=== PATIENT | male | born 1935 | race Caucasian/White ===

== ENCOUNTER → 2016-10-15 | Outpatient (CLI) | payer OTHER ==
[~2016-10-15] MED LIST: ACET1TAB84 PO; AMOX500C3 PO; ASPCH81X PO; CALC-393 PO; CALCTAB5 PO; CLC/300 PO; LSN/10125 PO; MULTTAB PO; NAPR1TAB9 PO; OXYC-57 PO; OXYSR10 PO; POLYSOL OPB
[2016-10-15 12:42] LABS: BASO % 0.3 %; BASO ABS # 0.02 K/uL (0-0.2); COMPLETE YES; HEMATOCRIT 41.3 % (42-52); IG% 0.2 %; LYMPH % 24.7 %; LYMPH ABS # 1.49 K/uL (1.2-3.4); MEAN CELL VOLUME 90.4 fL (80-100); MEAN CORPUSCULAR HEMOGLOBIN 31.1 pg (25-34); MEAN CORPUSCULAR HGB CONC 34.4 g/dl (32-36); MEAN PLATELET VOLUME 9.3 fL (7.4-10.4); MONO % 10.4 %; NEUT % 63.4 %; PLATELET COUNT 257 K/uL (130-400); RED BLOOD COUNT 4.57 M/uL (4.7-6.1); WHITE BLOOD COUNT 6.03 K/uL (4.8-10.8)
[2016-10-15 13:30] LABS: ALT/SGPT 23 U/L (12-78); BLOOD UREA NITROGEN 23 mg/dl (7-18); BUN/CREATININE RATIO 26.9 (10-20); CARBON DIOXIDE 28 mmol/L (21-32); CHLORIDE 104 mmol/L (98-107); CREATININE 0.84 mg/dl (0.60-1.40); GLUCOSE 94 mg/dl (70-99); POTASSIUM 4.3 mmol/L (3.5-5.1); SODIUM 139 mmol/L (136-145)
[2016-10-15 13:35] LABS: ALB/GLOB RATIO 1.1 (0.9-2); ALKALINE PHOSPHATASE 85 U/L (45-117); AST/SGOT 27 U/L (15-37)
[2016-10-15 14:27] LABS: LYME DISEASE AB IGG NEG (NEG); LYME DISEASE AB IGM NEG (NEG)
== END | disposition home or self-care (01) ==
LOC: C.LABPVFM 09:01
PROVIDERS: ATTEND Family Medicine
DX: I10 Essential (primary) hypertension (principal); Z13.6 Encounter for screening for cardiovascular disorders; N40.1 Benign prostatic hyperplasia with lower urinary tract symptoms; T14.8 Other injury of unspecified body region; W57.XXXA Bitten or stung by nonvenomous insect and other nonvenomous arthropods, initial encounter

== ENCOUNTER 2017-01-11 17:29 | Emergency (ER) | payer OTHER ==
[~2017-01-11] VITALS: Ht 175.3 cm; Wt 86.0 kg
[~2017-01-11 17:29] MED LIST changes: -ACET1TAB84 PO; -CALC-393 PO; -CLC/300 PO; -NAPR1TAB9 PO
[2017-01-11 17:32] VITALS: Ht 175.3 cm; Wt 86.0 kg
[2017-01-11] MEDS ORDERED: SODIUM CHLORIDE 0.9% 1000ML 1,000 ML IV STA (17:35)
[2017-01-11] MEDS ORDERED: CALC-393 PO (17:55)
[2017-01-11] MEDS ORDERED: NAPR1TAB9 PO (17:55)
[2017-01-11] MEDS ORDERED: CLC/300 PO (17:55)
--- NOTE | 2017-01-11 18:15 | DIAGNOSTIC IMAGING REPORT ---
CT SCAN OF THE ABDOMEN AND PELVIS WITHOUT IV CONTRAST CLINICAL HISTORY: Bilateral flank pain. COMPARISON STUDY: Ultrasound of the aorta dated 05/03/2016. TECHNIQUE: CT scan of the abdomen and pelvis is performed from the lung bases to the proximal femora. Images are reviewed in the axial, sagittal, and coronal planes. IV contrast was not administered for this examination as per the referring clinician. Note that the examination was performed in suboptimal fashion without IV contrast. Automated dose control exposure was utilized. CT DOSE: 1148.89 mGy.cm FINDINGS: Lung bases: The heart is normal in size and without pericardial effusion. Calcified pleural plaque is noted at the right lung base. No airspace consolidation or pleural effusion is seen. A 3 mm pleural-based nodule at the right lung base as seen on image #64. Liver: The unenhanced liver is normal in size, contour, and attenuation. There is no intrahepatic biliary ductal dilatation. Gallbladder: There are numerous calcified gallstones. There is no CT evidence of acute cholecystitis. Spleen: Normal in size and attenuation. Pancreas: The unenhanced pancreas is atrophic and grossly unremarkable. Adrenal glands: Unremarkable. Kidneys: The unenhanced kidneys demonstrate cortical atrophy and are without hydronephrosis. There are no renal calculi identified. There is no evidence of contour deforming renal mass lesion. Abdominal vasculature: The abdominal aorta is normal in course and caliber noting moderate atherosclerotic calcification. Bowel: The small bowel and colon are normal in course and caliber. There is advanced colonic diverticulosis without CT evidence of acute diverticulitis. The appendix is well-visualized and normal. Peritoneum: There is no intraperitoneal free air or abdominal ascites. Lymphadenopathy: None. Pelvic viscera: Streak artifact from a left hip arthroplasty degrades assessment of the pelvis. There is median lobe hypertrophy of the prostate gland. The bladder wall appears mildly thickened and trabeculated suggesting chronic outlet obstruction. Skeletal structures: The skeletal structures are osteopenic. Moderate lumbosacral spondylosis is observed. There are postoperative changes from L5 -S1 spinal fusion. A left hip arthroplasty is in place. No lytic or blastic lesions are seen. IMPRESSION: 1. There are no acute infectious or inflammatory findings in the abdomen or pelvis. 2. Advanced colonic diverticulosis without CT evidence of acute diverticulitis. 3. Calcified pleural plaque is noted at the right lung base. 4. Cholelithiasis without CT evidence of acute cholecystitis. 5. Additional findings as above. Electronically signed by: Higinio Berg M.D. 01/11/2017 6:14 PM Dictated Date/Time: 01/11/2017 6:08 PM
[2017-01-11 19:06] LABS: BASO % 0.3 %; BASO ABS # 0.01 K/uL (0-0.2); COMPLETE YES; HEMATOCRIT 41.8 % (42-52); IG% 0.3 %; LYMPH % 10.6 %; LYMPH ABS # 0.41 K/uL (1.2-3.4); MEAN CELL VOLUME 90.9 fL (80-100); MEAN CORPUSCULAR HEMOGLOBIN 31.3 pg (25-34); MEAN CORPUSCULAR HGB CONC 34.4 g/dl (32-36); MEAN PLATELET VOLUME 9.3 fL (7.4-10.4); NEUT % 81.8 %; PLATELET COUNT 102 K/uL (130-400); WHITE BLOOD COUNT 3.85 K/uL (4.8-10.8)
[2017-01-11 19:25] LABS: BUN/CREATININE RATIO 17.7 (10-20); POTASSIUM 3.7 mmol/L (3.5-5.1)
[2017-01-11] MEDS ORDERED: ACETAMINOPHEN 500 MG TAB PO STA (19:27)
[2017-01-11 19:36] LABS: THYROID STIMULATING HORMONE 1.38 uIu/ml (0.300-4.500)
[2017-01-11 19:59] LABS: LYME DISEASE AB IGG NEG (NEG)
[2017-01-11 20:00] LABS: LYME DISEASE AB IGM NEG (NEG)
[2017-01-11 20:03] LABS: URINE APPEARANCE CLOUDY (CLEAR); URINE BILIRUBIN NEG (NEG); URINE COLOR DK YELLOW; URINE NITRITE NEG (NEG); URINE SPECIFIC GRAVITY 1.031 (1.000-1.030); UROBILINOGEN NEG (NEG); ZZUR CULT IF INDIC CLEAN CATCH NO
[2017-01-11 20:07] LABS: MANUAL MICROSCOPIC REQUIRED? NO; REVIEW REQ? NO
[2017-01-11 21:54] VITALS: BP 116/72; PULSE 61; O2SAT 95
[2017-01-11 21:55] VITALS: TEMP 37
--- NOTE | 2017-01-12 02:44 | EMERGENCY ROOM VISIT NOTE ---
History Report prepared by Christiano: Idania Corbin Under the Supervision of: Dr. Alli Greene M.D. First contact with patient: 17:35 Chief Complaint: ILLNESS Stated Complaint: KIDNEYS HURT,ABD PAIN,HEADACHE History of Present Illness The patient is a 81 year old male who presents to the Emergency Room with complaints of a persistent illness that began one day ago. He currently rates his discomfort as a 6/10 in severity. The patient states that one day ago he developed bilateral kidney pain, but denies any urinary problems. He denies any history of kidney problems or kidney stones. The patient states that he had a low-grade fever today and took two 81 mg aspirin, which helped slightly. He additionally notes general chills and aches. The patient reports that he also had a very mild headache today. He notes a chronic cough, but nothing new. He does not feel like he has any new respiratory issues at all. He is not bringing up anything with the cough. The patient reports a surgical history of a previous lumbar back surgery in 1994. He denies any midline low back pain. He denies any recent tick bite. Pt denies LOC, diaphoresis, visual changes, neck pain, chest pain, breathing difficulties, nausea, vomiting, abdominal pain, back pain, melena, hematochezia, urinary symptoms, numbness, weakness, lymphadenopathy, rash, or other complaints. Source of History: patient Onset: one day ago Position: other (global) Symptom Intensity: 6/10 Quality: other (illness) Timing: other (persistent) Associated Symptoms: + fevers, + chills, + headache, + neck pain Note: Associated Symptoms: general aches Review of Systems See HPI for pertinent positives and negatives. A total of ten systems were reviewed and were otherwise negative. Past Medical & Surgical Medical Problems: (1) Basal cell carcinoma (2) Hypertension (3) Osteoarthritis Surgical Problems: (1) H/O hand surgery (2) H/O shoulder surgery (3) History of cataract surgery (4) History of total right knee replacement (5) Previous back surgery (6) Status post left hip replacement Family History No pertinent family history stated. Social History Smoking Status: Former Smoker Marital Status: Housing Status: lives with significant other Occupation Status: retired Current/Historical Medications Scheduled Aspirin (Aspirin Chewable), 81 MG PO DAILY Calcium Carbonate (Calcium), 1 TAB PO BID Clindamycin HCl (Clindamycin HCl), 2 CAP PO DAILY Hctz/Lisinopril (Lisinopril/Hctz 10/12.5 Mg), 0.5 TAB PO QAM Multivitamins/Minerals (Mvi With Minerals), 1 TAB PO QAM Naproxen (Aleve), 220 MG PO QAM Polyvinyl Alcohol-Povidone (Op (Refresh), 1 DROP OPB PRN Allergies Coded Allergies: Adhesives (Verified Allergy, Mild, SKIN REDNESS, 01/11/17) Physical Exam Vital Signs Date Time Temp Pulse Resp B/P (MAP) Pulse Ox O2 Delivery O2 Flow Rate FiO2 01/11/17 21:55 37.0 01/11/17 21:54 61 16 116/72 95 Room Air 01/11/17 21:23 37.7 01/11/17 20:22 79 20 130/75 95 Room Air 01/11/17 19:19 38.0 72 18 120/62 94 Room Air 01/11/17 17:32 36.6 72 16 127/73 95 Room Air Physical Exam GENERAL: Awake, alert, very tired-appearing, in no distress HENT: Normocephalic, atraumatic. Oropharynx unremarkable. EYES: Normal conjunctiva. Sclera non-icteric. NECK: Supple. No nuchal rigidity. FROM. No JVD. RESPIRATORY: Clear to auscultation. CARDIAC: Regular rate, normal rhythm. Extremities warm and well perfused. Pulses equal. ABDOMEN: Soft, non-distended. No tenderness to palpation. No rebound or guarding. No masses. RECTAL: Deferred. MUSCULOSKELETAL: Chest examination reveals no tenderness. The back is symmetrical on inspection without obvious abnormality. There is no CVA tenderness to palpation. No joint edema. LOWER EXTREMITIES: Calves are equal size bilaterally and non-tender. No edema. No discoloration. NEURO: Normal sensorium. No sensory or motor deficits noted. SKIN: No rash or jaundice noted. Medical Decision & Procedures ER Provider Diagnostic Interpretation: CT: Radiology results as stated below per my review and radiologist interpretation CT SCAN OF THE ABDOMEN AND PELVIS WITHOUT IV CONTRAST CLINICAL HISTORY: Bilateral flank pain. COMPARISON STUDY: Ultrasound of the aorta dated 05/03/2016. TECHNIQUE: CT scan of the abdomen and pelvis is performed from the lung bases to the proximal femora. Images are reviewed in the axial, sagittal, and coronal planes. IV contrast was not administered for this examination as per the referring clinician. Note that the examination was performed in suboptimal fashion without IV contrast. Automated dose control exposure was utilized. CT DOSE: 1148.89 mGy.cm FINDINGS: Lung bases: The heart is normal in size and without pericardial effusion. Calcified pleural plaque is noted at the right lung base. No airspace consolidation or pleural effusion is seen. A 3 mm pleural-based nodule at the right lung base as seen on image #64. Liver: The unenhanced liver is normal in size, contour, and attenuation. There is no intrahepatic biliary ductal dilatation. Gallbladder: There are numerous calcified gallstones. There is no CT evidence of acute cholecystitis. Spleen: Normal in size and attenuation. Pancreas: The unenhanced pancreas is atrophic and grossly unremarkable. Adrenal glands: Unremarkable. Kidneys: The unenhanced kidneys demonstrate cortical atrophy and are without hydronephrosis. There are no renal calculi identified. There is no evidence of contour deforming renal mass lesion. Abdominal vasculature: The abdominal aorta is normal in course and caliber noting moderate atherosclerotic calcification. Bowel: The small bowel and colon are normal in course and caliber. There is advanced colonic diverticulosis without CT evidence of acute diverticulitis. The appendix is well-visualized and normal. Peritoneum: There is no intraperitoneal free air or abdominal ascites. Lymphadenopathy: None. Pelvic viscera: Streak artifact from a left hip arthroplasty degrades assessment of the pelvis. There is median lobe hypertrophy of the prostate gland. The bladder wall appears mildly thickened and trabeculated suggesting chronic outlet obstruction. Skeletal structures: The skeletal structures are osteopenic. Moderate lumbosacral spondylosis is observed. There are postoperative changes from L5 -S1 spinal fusion. A left hip arthroplasty is in place. No lytic or blastic lesions are seen. IMPRESSION: 1. There are no acute infectious or inflammatory findings in the abdomen or pelvis. 2. Advanced colonic diverticulosis without CT evidence of acute diverticulitis. 3. Calcified pleural plaque is noted at the right lung base. 4. Cholelithiasis without CT evidence of acute cholecystitis. 5. Additional findings as above. Electronically signed by: Higinio Berg M.D. 01/11/2017 6:14 PM Dictated Date/Time: 01/11/2017 6:08 PM Laboratory Results 01/11/17 18:35 Red Blood Count 4.60, Mean Corpuscular Volume 90.9, Mean Corpuscular Hemoglobin 31.3, Mean Corpuscular Hemoglobin Concent 34.4, Mean Platelet Volume 9.3, Neutrophils (%) (Auto) 81.8, Lymphocytes (%) (Auto) 10.6, Monocytes (%) (Auto) 7.0, Eosinophils (%) (Auto) 0.0, Basophils (%) (Auto) 0.3, Neutrophils # (Auto) 3.15, Lymphocytes # (Auto) 0.41, Monocytes # (Auto) 0.27, Eosinophils # (Auto) 0.00, Basophils # (Auto) 0.01 01/11/17 18:35 Test 01/11/17 18:35 01/11/17 18:37 01/11/17 19:27 White Blood Count 3.85 K/uL (4.8-10.8) Red Blood Count 4.60 M/uL (4.7-6.1) Hemoglobin 14.4 g/dL (14.0-18.0) Hematocrit 41.8 % (42-52) Mean Corpuscular Volume 90.9 fL (80-100) Mean Corpuscular Hemoglobin 31.3 pg (25-34) Mean Corpuscular Hemoglobin Concent 34.4 g/dl (32-36) Platelet Count 102 K/uL (130-400) Mean Platelet Volume 9.3 fL (7.4-10.4) Neutrophils (%) (Auto) 81.8 % Lymphocytes (%) (Auto) 10.6 % Monocytes (%) (Auto) 7.0 % Eosinophils (%) (Auto) 0.0 % Basophils (%) (Auto) 0.3 % Neutrophils # (Auto) 3.15 K/uL (1.4-6.5) Lymphocytes # (Auto) 0.41 K/uL (1.2-3.4) Monocytes # (Auto) 0.27 K/uL (0.11-0.59) Eosinophils # (Auto) 0.00 K/uL (0-0.5) Basophils # (Auto) 0.01 K/uL (0-0.2) RDW Standard Deviation 41.7 fL (36.4-46.3) RDW Coefficient of Variation 12.4 % (11.5-14.5) Immature Granulocyte % (Auto) 0.3 % Immature Granulocyte # (Auto) 0.01 K/uL (0.00-0.02) Anion Gap 7.0 mmol/L (3-11) Est Creatinine Clear Calc Drug Dose 65.1 ml/min Estimated GFR () 82.6 Estimated GFR (Non- 71.3 BUN/Creatinine Ratio 17.7 (10-20) Calcium Level 9.0 mg/dl (8.5-10.1) Magnesium Level 2.0 mg/dl (1.8-2.4) Total Bilirubin 0.9 mg/dl (0.2-1) Direct Bilirubin 0.2 mg/dl (0-0.2) Aspartate Amino Transf (AST/SGOT) 35 U/L (15-37) Alanine Aminotransferase (ALT/SGPT) 28 U/L (12-78) Alkaline Phosphatase 85 U/L (45-117) Total Protein 7.3 gm/dl (6.4-8.2) Albumin 3.7 gm/dl (3.4-5.0) Lipase 166 U/L (73-393) Thyroid Stimulating Hormone (TSH) 1.380 uIu/ml (0.300-4.500) Lyme Disease IgG Antibody NEG (NEG) Lyme Disease IgM Antibody NEG (NEG) Bedside Lactic Acid Venous 0.77 mmol/L (0.90-1.70) Urine Color DK YELLOW Urine Appearance CLOUDY (CLEAR) Urine pH 5.0 (4.5-7.5) Urine Specific Davis 1.031 (1.000-1.030) Urine Protein 1+ (NEG) Urine Glucose (UA) NEG (NEG) Urine Ketones TRACE (NEG) Urine Occult Blood NEG (NEG) Urine Nitrite NEG (NEG) Urine Bilirubin NEG (NEG) Urine Urobilinogen NEG (NEG) Urine Leukocyte Esterase NEG (NEG) Urine WBC (Auto) 1-5 /hpf (0-5) Urine RBC (Auto) 5-10 /hpf (0-4) Urine Hyaline Casts (Auto) 1-5 /lpf (0-5) Urine Epithelial Cells (Auto) 10-20 /lpf (0-5) Urine Bacteria (Auto) NEG (NEG) Laboratory results reviewed by me Medications Administered Medications (Trade) Dose Ordered Sig/Meaghan Route Start Time Stop Time Status Last Admin Dose Admin Sodium Chloride 1,000 ml @ 125 mls/hr Q8H STAT IV 01/11/17 17:35 01/11/17 22:07 DC 01/11/17 18:49 125 MLS/HR Acetaminophen (Tylenol Tab) 1,000 mg NOW STAT PO 01/11/17 19:27 01/11/17 19:28 DC 01/11/17 20:21 1,000 MG ED Course 1734: Ordered Sodium Chloride 1000 ml @ 125 mls/hr IV. 1736: The patient was evaluated in room B11B. A complete history and physical exam was performed. 1926: The patient developed a fever. Ordered Tylenol Tab 1000 mg PO. 2129: I reevaluated the patient and he is resting. I performed a prostate exam on him and it was negative. I discussed all the exam findings with him and I discussed the treatment plan. He verbalized complete understanding and agreement. He feels comfortable going home and following up in the office tomorrow. Medical Decision Medication Reconciliation: I attest that I have personally reviewed the patient' s current medication list Blood pressure screening: Patient was found to have an elevated blood pressure and was referred to their primary doctor for recheck and further treatment. Triage Nursing notes reviewed. The patient's presentation and history were concerning for flulike symptoms. Etiologies such as viral syndrome, otitis, pharyngitis, pneumonia, urinary tract infection, sepsis, bacteremia, meningitis, lyme as well as others were entertained. The patient was evaluated. Clinically he was doing well on examination. He was hydrated. He underwent lab work, urinalysis and CT imaging. The patient's CT scan was unremarkable for acute pathology. The patient did have some gallstones noted. He never complained of any right upper quadrant abdominal pain. The patient was reevaluated and examined. He had no right upper quadrant tenderness. The blood work revealed a slight decrease in his leukocytes and platelets. His chemistry panel, LFTs, lipase, urinalysis and Lyme test was negative. The patient was reassessed. He was given Tylenol. His temperature was coming down. I did perform a prostate examination and this was normal. This is nontender. There are no clinical findings to support prostatitis. As the patient is feeling better and his diagnostic testing is unremarkable I discussed conservative management with him. Blood and urine cultures are pending and there is no clear indication for antibiotic use at this time. with his leukopenia this seems to be most likely viral although close follow-up will be necessary. The patient and his feel comfortable and they will contact the primary clinic tomorrow. If he worsens in any way she will come back to the emergency department. I gave my usual and customary discussion regarding this issue. By the evaluation outlined above other emergent etiologies such as those listed in the differential, as well as others, were deemed relatively unlikely. The patient was educated about the findings as listed above. All questions were answered and the patient was pleased with the treatment. Return instructions were outlined and the patient was discharged in stable condition. The patient was referred to his PCP for follow-up for a recheck of the current condition. Impression Primary Impression: Fever Scribe Attestation The scribe's documentation has been prepared under my direction and personally reviewed by me in its entirety. I confirm that the note above accurately reflects all work, treatment, procedures, and medical decision making performed by me. Departure Information Dispostion Home / Self-Care Referrals Mariajose John M.D. (PCP) Forms HOME CARE DOCUMENTATION FORM, IMPORTANT VISIT INFORMATION, WORK / SCHOOL INSTRUCTIONS Patient Instructions My [facility] Additional Instructions Follow-up with your primary doctor tomorrow. Tylenol: Take 1000 mg every 6 hours as needed for pain. Do not take more than 3000 mg in a 24 hour period. And/or Ibuprofen(Motrin, Advil) may be used for fever or pain. Use 600mg every six hours as needed. Take with food. Avoid using more than 2400mg in a 24 hour period. Do not use 2400mg per day for more than three consecutive days without physician direction. Prolonged inappropriate use can lead to stomach upset or ulcers. Rest and drink plenty of fluids. Return to the ER for headache, abdominal pain, vomiting, passing out, difficulty breathing, fevers, numbness, tingling, worsening of your condition, or as needed.
== END 2017-01-11 21:55 | disposition home or self-care (01) ==
LOC: C.EDB 17:31
DX: R50.9 Fever, unspecified (principal); I10 Essential (primary) hypertension; M19.90 Unspecified osteoarthritis, unspecified site; Z87.891 Personal history of nicotine dependence

== ENCOUNTER → 2017-04-09 | Outpatient (CLI) | payer OTHER ==
[~2017-04-09] MED LIST changes: -AMOX500C3 PO; +CALC-393 PO; -CALCTAB5 PO; +CLC/300 PO; +NAPR1TAB9 PO; -OXYC-57 PO; -OXYSR10 PO
[2017-04-09 13:32] LABS: ALT/SGPT 20 U/L (12-78); AST/SGOT 22 U/L (15-37); BLOOD UREA NITROGEN 19 mg/dl (7-18); BUN/CREATININE RATIO 24.3 (10-20); CALCIUM 8.5 mg/dl (8.5-10.1); CARBON DIOXIDE 29 mmol/L (21-32); CHLORIDE 106 mmol/L (98-107); CREATININE 0.77 mg/dl (0.60-1.40); GLUCOSE 89 mg/dl (70-99); POTASSIUM 3.9 mmol/L (3.5-5.1); SODIUM 141 mmol/L (136-145)
[2017-04-09 13:34] LABS: ALB/GLOB RATIO 1.1 (0.9-2); ALKALINE PHOSPHATASE 84 U/L (45-117); CHOLESTEROL 149 mg/dl (0-200); CHOLESTEROL/HDL RATIO 2.8; HDL CHOLESTEROL 53 mg/dl; LDL CHOLESTEROL CALCULATED 81 mg/dl; TRIGLYCERIDES 75 mg/dl (0-150); VERY LOW DENSITY LIPOPROT CALC 15 mg/dl
== END | disposition home or self-care (01) ==
LOC: C.LABPVFM 08:15
PROVIDERS: ATTEND Family Medicine
DX: I10 Essential (primary) hypertension (principal); Z13.220 Encounter for screening for lipoid disorders

== ENCOUNTER 2017-05-26 10:57 | Observation (INO) | payer OTHER ==
[~2017-05-26] VITALS: Ht 175.3 cm; Wt 84.8 kg
[2017-05-26] MEDS ORDERED: SODIUM CHLORIDE 0.9% 1000ML 1,000 ML IV SCH (11:24)
--- NOTE | 2017-05-26 11:33 | EMERGENCY ROOM VISIT NOTE ---
History Report prepared by Christiano: Remy Johnson Under the Supervision of: Dr. Lucho Navas D.O. First contact with patient: 11:14 Chief Complaint: STROKE SYMPTOMS Stated Complaint: CONFUSION Nursing Triage Summary: Spouse states at around 1015 this morning, spouse notes that patient became confused. She notes confused to events Prior to episode onset spouse reports that she and the patient had sexual intercourse around 1000. Reports period of time he doesnt remember. Has pressure in front of head. HTN history. Denies vision problems. Denies weakness. History of Present Illness The patient is a 81 year old male who presents to the Emergency Room with complaints of stroke-like symptoms that occurred 1 hour ago at 1015 this morning. Per the patient's , before his symptoms began they were having intercourse. After they got cleaned up and dressed, they walked into the kitchen. She noticed that the patient was staring at an advertisement on the refrigerator for an abnormally long amount of time. The patient states that he does not remember this occurring or having intercourse with his this morning. The patient's did not notice any one-sided weakness or facial droop. She called [facility] and described the episode to them, who referred them to the ER. He currently denies any headache, nausea, vomiting, or current weakness. His believes that he still seems "off" while currently describing this as mildly confused. He has a history of hypertension and took his medication this morning. Source of History: patient, spouse/significant other Onset: 1 hour ago Position: other (Global) Symptom Intensity: moderate Quality: other (Stroke-like symptoms (confusion)) Timing: constant Associated Symptoms: No headache, No nausea, No vomiting, No weakness Note: He is mildly confused. Review of Systems See HPI for pertinent positives & negatives. A total of 10 systems reviewed and were otherwise negative. Past Medical & Surgical Medical Problems: (1) Basal cell carcinoma (2) Hypertension (3) Osteoarthritis (4) TIA (transient ischemic attack) Surgical Problems: (1) H/O hand surgery (2) H/O shoulder surgery (3) History of cataract surgery (4) History of total right knee replacement (5) Previous back surgery (6) Status post left hip replacement Family History Omitted secondary to the patient's age. Social History Smoking Status: Former Smoker Marital Status: Housing Status: lives with significant other Occupation Status: retired Current/Historical Medications Scheduled Aspirin (Aspirin Chewable), 81 MG PO DAILY Calcium Carbonate (Calcium), 1 TAB PO BID Hctz/Lisinopril (Lisinopril/Hctz 10/12.5 Mg), 0.5 TAB PO QAM Multivitamins/Minerals (Mvi With Minerals), 1 TAB PO QAM Scheduled PRN Acetaminophen (Tylenol Arthritis Ext Rel), 650 MG PO Q8H PRN for Pain Allergies Coded Allergies: Adhesives (Verified Allergy, Mild, SKIN REDNESS, 01/11/17) Physical Exam Vital Signs Date Time Temp Pulse Resp B/P (MAP) Pulse Ox O2 Delivery O2 Flow Rate FiO2 05/26/17 12:47 62 172/99 96 Room Air 05/26/17 12:40 64 20 176/91 95 Room Air 05/26/17 12:16 66 20 193/89 97 Room Air 05/26/17 12:00 58 20 157/88 99 Room Air 05/26/17 11:45 61 20 167/93 98 Room Air 05/26/17 11:41 61 20 192/99 98 Room Air 05/26/17 11:22 61 20 179/89 97 Room Air 05/26/17 11:17 67 05/26/17 11:15 97 Room Air 05/26/17 10:59 36.5 64 16 183/95 97 Room Air Physical Exam GENERAL: Patient is awake, looking around the room. Patient is does not appear to be uncomfortable or in pain. EYES: The conjunctivae are clear. The pupils are round and reactive. EARS, NOSE, MOUTH AND THROAT: The nose is without any evidence of any deformity. Mucous membranes are moist tongue is midline NECK: The neck is nontender and supple. No bruits noted to auscultation. RESPIRATORY: Normal respiratory effort is noted there is no evidence of wheezing rhonchi or rales CARDIOVASCULAR: Regular rate and rhythm noted there no murmurs rubs or gallops normal S1 normal S2 GASTROINTESTINAL: The abdomen is soft. Bowel sounds are present in all quadrants. Abdomen is nontender MUSCULOSKELETAL/EXTREMITIES: There is no evidence of gross deformity full range of motion is noted in the hips and shoulders SKIN: There is no obvious evidence of any rash. There are no petechiae, pallor or cyanosis noted. NEUROLOGIC: Patient is awake alert and oriented to person, place, but not time. Strength is symmetric, no pronator drift, no facial droop noted. Medical Decision & Procedures ER Provider Diagnostic Interpretation: Radiology results as stated below per my review and radiologist interpretation: CT HEAD WITHOUT CONTRAST (CT) CLINICAL HISTORY: Stroke COMPARISON STUDY: No previous studies for comparison. TECHNIQUE: Axial CT of the brain is performed from the vertex to the skull base. IV contrast was not administered for this examination. A dose lowering technique was utilized adhering to the principles of ALARA. CT DOSE: 810.83 mGy.cm FINDINGS: No intra or extra-axial mass lesions are visualized. There is a 1 cm subtle right cerebellar hypodensity versus posterior fossa artifact. There is no evidence of midline shift. There is no acute hemorrhage. No calvarial fractures are visualized. There are patchy white matter hypodensities likely on a small vessel basis. There is no evidence of pathologic ventricular dilatation. There is no evidence of acute sinusitis IMPRESSION: 1. Subtle 1 cm right cerebellar hypodensity versus posterior fossa artifact 2. No evidence of acute hemorrhage. No evidence of mass effect. Electronically signed by: Matthieu Ríos M.D. 05/26/2017 11:38 AM Dictated Date/Time: 05/26/2017 11:35 AM MR ANGIOGRAM OF THE BRAIN CLINICAL HISTORY: Change in mental status. COMPARISON STUDY: CT of the brain dated 05/26/2017. TECHNIQUE: 3-D [id number] MR angiography of the intracranial circulation is performed. 3-D tumble views are created and assessed. IV contrast was not administered for this examination. FINDINGS: The internal carotid arteries are widely patent bilaterally, as are the anterior and middle cerebral arteries. The right A1 segment is atretic. The right anterior cerebral artery is supplied via the anterior communicating artery. The vertebrobasilar system and posterior cerebral arteries are widely patent. The right vertebral artery is dominant. There is no aneurysm, high-grade stenosis, or focal vessel cutoff seen throughout the intracranial circulation. The brain parenchyma is normal as visualized. IMPRESSION: Unremarkable MR angiogram of the brain. Electronically signed by: Higinio Berg M.D. 05/26/2017 1:17 PM Dictated Date/Time: 05/26/2017 1:14 PM CHEST ONE VIEW PORTABLE CLINICAL HISTORY: Stroke COMPARISON STUDY: March 04, 2015 FINDINGS: The heart is the upper limits of normal in size. There is tortuosity/ectasia of the thoracic aorta. There is no failure. There is no focal pulmonary consolidation. There are no pleural effusions. There is a right-sided pleural diaphragmatic calcification.[ IMPRESSION: No active disease in the chest. Electronically signed by: Matthieu Ríos M.D. 05/26/2017 1:48 PM Dictated Date/Time: 05/26/2017 1:47 PM BRAIN WITHOUT CONTRAST HISTORY: 81 years-old Male acute CVA acute strokelike symptoms with acute confusion COMPARISON: CT head and MRA head of same day TECHNIQUE: Multiplanar multisequence MRI of the brain was obtained without contrast. FINDINGS: There is no restricted diffusion to suggest acute ischemia. Ill-defined area of reported low-attenuation of the right cerebellum likely correlates with normal brain parenchyma. Midline structures including the corpus callosum, brainstem, optic chiasm, pituitary and pineal glands are unremarkable on the sagittal T1 sequence. There is no cerebellar tonsillar herniation, however the cervical tonsils are low-lying extending 3 mm caudal to the foramen magnum. Degenerative changes of the imaged cervical spine are noted. There is mild to moderate atrophy with ex vacuo ventriculomegaly. A few scattered punctate foci of T2/FLAIR prolongation are noted within the subcortical and periventricular white matter of the cerebral hemispheres bilaterally suggesting mild chronic microvascular ischemic changes. No acute intracranial hemorrhage, midline shift, hydrocephalus, abnormal extra-axial collections or intracranial mass. The major flow voids at the level of the skull base are patent. Orbits are symmetric. There is mild mucosal thickening of the ethmoid air cells. 9 mm T2 hyperintense structure of the right parietal calvarium on image 16 series 7 suggests arachnoid granulation. The calvarium and scalp soft tissues are otherwise unremarkable. IMPRESSION: 1. No acute intracranial abnormality. No acute ischemia or hemorrhage. 2. Age-related findings of atrophy with mild chronic microvascular ischemic changes. The above report was generated using voice recognition software. It may contain grammatical, syntax or spelling errors. Electronically signed by: Sly Watts M.D. 05/26/2017 1:33 PM Dictated Date/Time: 05/26/2017 1:23 PM Laboratory Results Test 05/26/17 11:10 05/26/17 11:19 05/26/17 11:23 05/26/17 11:27 Prothrombin Time 10.4 SECONDS (9.0-12.0) Prothromb Time International Ratio 1.0 (0.9-1.1) Activated Partial Thromboplast Time 29.4 SECONDS (21.0-31.0) Partial Thromboplastin Ratio 1.1 Estimated Average Glucose 105 mg/dl Hemoglobin A1c 5.3 % (4.5-5.6) Magnesium Level 2.2 mg/dl (1.8-2.4) Total Creatine Kinase 97 U/L (39-308) Creatine Kinase MB 1.8 ng/ml (0.5-3.6) Creatine Kinase MB Ratio 1.9 (0-3.0) Troponin I < 0.015 ng/ml (0-0.045) Bedside Prothrombin Time INR 1.0 (0.9-1.1) Bedside Glucose 125 mg/dl (70-99) Bedside Hemoglobin 14.3 g/dl (14.0-18.0) Bedside Hematocrit 42 % (42-52) Bedside Sodium 139 mEq/L (135-144) Bedside Potassium 4.0 mEq/L (3.3-5.0) Bedside Chloride 100 mEq/L (101-112) Bedside Total CO2 29 mEq/l (24-31) Bedside Blood Urea Nitrogen 19 mg/dl (7-18) Bedside Creatinine 0.9 mg/dl (0.6-1.3) Bedside Glucose (other) 113 mg/dl (70-99) Bedside Ionized Calcium (Ran) 1.25 mmol/l (1.12-1.32) Test 05/26/17 12:20 Urine Color YELLOW Urine Appearance CLEAR (CLEAR) Urine pH 5.5 (4.5-7.5) Urine Specific [place] 1.012 (1.000-1.030) Urine Protein NEG (NEG) Urine Glucose (UA) NEG (NEG) Urine Ketones NEG (NEG) Urine Occult Blood NEG (NEG) Urine Nitrite NEG (NEG) Urine Bilirubin NEG (NEG) Urine Urobilinogen NEG (NEG) Urine Leukocyte Esterase NEG (NEG) Laboratory results per my review. Medications Administered Medications (Trade) Dose Ordered Sig/Meaghan Route Start Time Stop Time Status Last Admin Dose Admin Sodium Chloride 1,000 ml @ 50 mls/hr Q20H IV 05/26/17 11:24 05/27/17 08:09 DC 05/26/17 14:17 50 MLS/HR ECG Indication: other (Neurologic Symptoms) Rate (beats per minute): 60 Rhythm: sinus rhythm Findings: 1st degree AV block, no ectopy, other (No acute STS abnormalities) Comparison ECG Date: 02 January 2016 Change: no significant change ED Course 1114: The patient was evaluated in room B1. A complete history and physical examination were performed. ' 1150: I spoke with Dr. Tarango of [facility] at this time. We discussed the patient's case. He will evaluate the patient. 1228: Dr. Tarango does not feel the need for T-PA. He recommends getting an MRI /MRA of his brain. 1240: Upon reevaluation, the patient is resting. I discussed results and treatment plan with him and his . They verbalizes agreement and understanding. I spoke with Dr. Cortez of the [facility]. The patient will be evaluated for further management and care. Medical Decision Differential diagnosis: Etiologies such as metabolic, infection, hypo/hyperglycemia, electrolyte abnormalities, cardiac sources, intracerebral event, toxicologic, neurologic, as well as others were entertained. Nursing notes reviewed. Additional history is obtained from the patient's significant other. The patient is a 80-year-old male who presented to the emergency department for an evaluation of possible stroke. The patient was inside the 3 hour window and was felt to be a good candidate for TPA if this was an ischemic stroke. Therefore he was made a stroke alert rather quickly. The patient did not have any significant focal neurologic deficit but had significant cognitive deficit. I discussed the patient's laboratory and radiographic studies with him and his significant other. Given his low NIH stroke score we discussed his case with the tele stroke neurologist from [facility]. After his evaluation he felt there was no indication for thrombolytics. The patient was observed in the emergency apartment. I discussed his case with the on-call [facility] hospitalist group. They've agreed to evaluate the patient in the emergency department for further management and disposition. I reevaluated the patient multiple times and discussed his findings with his significant other. Medication Reconcilliation Current Medication List: was personally reviewed by me Blood Pressure Screening Patient's blood pressure: Elevated blood pressure Will be addressed as an inpatient. Consults Time Called: 1145 Consulting Physician: Dr. Tarango - [facility] Returned Call: 1150 We discussed the patient's case. He will evaluate the patient. Additional Consults: Time Called: 1228 Consulted Physician: Dr. Emelina Franz [facility] Returned Call: 1228 Additional Comments: He does not feel the need for T-PA. He recommended an MRI and MRA of his brain. Time Called: 1235 Consulted Physician: Dr. Dana DAVILA Returned Call: 1240 Additional Comments: I discussed the patient's case with him. The patient will be evaluated for further management. Impression Primary Impression: Confusion Additional Impression: Altered mental status Scribe Attestation The scribe's documentation has been prepared under my direction and personally reviewed by me in its entirety. I confirm that the note above accurately reflects all work, treatment, procedures, and medical decision making performed by me. Departure Information Dispostion Being Evaluated By Hospitalist Prescriptions Acetaminophen (Tylenol Arthritis Ext Rel) 650 Mg Cplt 650 MG PO Q8H Y for Pain, #100 CAP Prov: Rodney Catherine D.O. 05/27/17 Referrals Mariajose John M.D. (PCP) Patient Instructions My [facility] Stroke History Time Last Known Well 1 hour ago Stroke t-PA Criteria Reviewed Does NOT meet criteria for t-PA Reason t-PA Not Given Treatment not indicated Problem Qualifiers Additional Impression: Altered mental status Altered mental status type: unspecified Qualified Codes: R41.82 - Altered mental status, unspecified
[2017-05-26 11:39] LABS: ISTAT CREATININE 0.9 mg/dl (0.6-1.3); ISTAT HEMOGLOBIN 14.3 g/dl (14.0-18.0); ISTAT IONIZED CALCIUM 1.25 mmol/l (1.12-1.32)
--- NOTE | 2017-05-26 11:39 | DIAGNOSTIC IMAGING REPORT ---
CT HEAD WITHOUT CONTRAST (CT) CLINICAL HISTORY: Stroke COMPARISON STUDY: No previous studies for comparison. TECHNIQUE: Axial CT of the brain is performed from the vertex to the skull base. IV contrast was not administered for this examination. A dose lowering technique was utilized adhering to the principles of ALARA. CT DOSE: 810.83 mGy.cm FINDINGS: No intra or extra-axial mass lesions are visualized. There is a 1 cm subtle right cerebellar hypodensity versus posterior fossa artifact. There is no evidence of midline shift. There is no acute hemorrhage. No calvarial fractures are visualized. There are patchy white matter hypodensities likely on a small vessel basis. There is no evidence of pathologic ventricular dilatation. There is no evidence of acute sinusitis IMPRESSION: 1. Subtle 1 cm right cerebellar hypodensity versus posterior fossa artifact 2. No evidence of acute hemorrhage. No evidence of mass effect. Electronically signed by: Matthieu Ríos M.D. 05/26/2017 11:38 AM Dictated Date/Time: 05/26/2017 11:35 AM
[2017-05-26] MEDS ORDERED: LABETALOL HCL IV 5 MG/ML 20ML IV ONE (11:45)
[2017-05-26 11:49] LABS: BASO % 0.4 %; BASO ABS # 0.03 K/uL (0-0.2); COMPLETE YES; EOS % 1.3 %; HEMATOCRIT 41.8 % (42-52); IG% 0.4 %; LYMPH % 27.6 %; LYMPH ABS # 2.06 K/uL (1.2-3.4); MEAN CELL VOLUME 90.7 fL (80-100); MEAN CORPUSCULAR HEMOGLOBIN 31.5 pg (25-34); MEAN CORPUSCULAR HGB CONC 34.7 g/dl (32-36); MONO % 8.2 %; NEUT % 62.1 %; PLATELET COUNT 234 K/uL (130-400); RED BLOOD COUNT 4.61 M/uL (4.7-6.1); WHITE BLOOD COUNT 7.46 K/uL (4.8-10.8)
[2017-05-26 11:54] LABS: PARTIAL THROMBOPLASTIN RATIO 1.1; PROTHROMBIN TIME (PATIENT) 10.4 SECONDS (9.0-12.0)
[2017-05-26 11:56] LABS: BLOOD UREA NITROGEN 19 mg/dl (7-18); BUN/CREATININE RATIO 19.8 (10-20); CALCIUM 9.1 mg/dl (8.5-10.1); CARBON DIOXIDE 29 mmol/L (21-32); CHLORIDE 103 mmol/L (98-107); CREATININE 0.97 mg/dl (0.60-1.40); GLUCOSE 112 mg/dl (70-99); MAGNESIUM 2.2 mg/dl (1.8-2.4); POTASSIUM 3.9 mmol/L (3.5-5.1); SODIUM 137 mmol/L (136-145)
[2017-05-26 12:03] LABS: CKMB/CK RATIO 1.9 (0-3.0)
[2017-05-26 12:36] LABS: URINE APPEARANCE CLEAR (CLEAR); URINE BILIRUBIN NEG (NEG); URINE COLOR YELLOW; URINE NITRITE NEG (NEG); URINE PH 5.5 (4.5-7.5); URINE SPECIFIC GRAVITY 1.012 (1.000-1.030); UROBILINOGEN NEG (NEG); ZZUR CULT IF INDIC CLEAN CATCH NO
[2017-05-26 12:38] LABS: MANUAL MICROSCOPIC REQUIRED? NO; REVIEW REQ? NO
[2017-05-26] MEDS ORDERED: ONDANSETRON INJ 2 MG/ML 2 ML VIAL IV PRN (13:00)
[2017-05-26] MEDS ORDERED: PHARMACIST DISCHARGE MED REC CONSULT PRN (13:00)
[2017-05-26] MEDS ORDERED: POLYETHYLENE (MIRALAX) 17 GM PACK PO PRN (13:00)
[2017-05-26] MEDS ORDERED: ACETAMINOPHEN 325 MG TAB PO PRN (13:00)
[2017-05-26] MEDS ORDERED: ALUMINUM/MAGNESIUM/SIMETH (MAALOX MAX) 30 ML UDC PO PRN (13:00)
[2017-05-26] MEDS ORDERED: HydrALAZINE HCL 20 MG/ML VIAL IV PRN (13:15)
--- NOTE | 2017-05-26 13:18 | DIAGNOSTIC IMAGING REPORT ---
MR ANGIOGRAM OF THE BRAIN CLINICAL HISTORY: Change in mental status. COMPARISON STUDY: CT of the brain dated 05/26/2017. TECHNIQUE: 3-D [id number] MR angiography of the intracranial circulation is performed. 3-D tumble views are created and assessed. IV contrast was not administered for this examination. FINDINGS: The internal carotid arteries are widely patent bilaterally, as are the anterior and middle cerebral arteries. The right A1 segment is atretic. The right anterior cerebral artery is supplied via the anterior communicating artery. The vertebrobasilar system and posterior cerebral arteries are widely patent. The right vertebral artery is dominant. There is no aneurysm, high-grade stenosis, or focal vessel cutoff seen throughout the intracranial circulation. The brain parenchyma is normal as visualized. IMPRESSION: Unremarkable MR angiogram of the brain. Electronically signed by: Higinio Berg M.D. 05/26/2017 1:17 PM Dictated Date/Time: 05/26/2017 1:14 PM
[2017-05-26 13:34] VITALS: O2SAT 96; Ht 175.3 cm; Wt 84.8 kg
--- NOTE | 2017-05-26 13:35 | DIAGNOSTIC IMAGING REPORT ---
BRAIN WITHOUT CONTRAST HISTORY: 81 years-old Male acute CVA acute strokelike symptoms with acute confusion COMPARISON: CT head and MRA head of same day TECHNIQUE: Multiplanar multisequence MRI of the brain was obtained without contrast. FINDINGS: There is no restricted diffusion to suggest acute ischemia. Ill-defined area of reported low-attenuation of the right cerebellum likely correlates with normal brain parenchyma. Midline structures including the corpus callosum, brainstem, optic chiasm, pituitary and pineal glands are unremarkable on the sagittal T1 sequence. There is no cerebellar tonsillar herniation, however the cervical tonsils are low-lying extending 3 mm caudal to the foramen magnum. Degenerative changes of the imaged cervical spine are noted. There is mild to moderate atrophy with ex vacuo ventriculomegaly. A few scattered punctate foci of T2/FLAIR prolongation are noted within the subcortical and periventricular white matter of the cerebral hemispheres bilaterally suggesting mild chronic microvascular ischemic changes. No acute intracranial hemorrhage, midline shift, hydrocephalus, abnormal extra-axial collections or intracranial mass. The major flow voids at the level of the skull base are patent. Orbits are symmetric. There is mild mucosal thickening of the ethmoid air cells. 9 mm T2 hyperintense structure of the right parietal calvarium on image 16 series 7 suggests arachnoid granulation. The calvarium and scalp soft tissues are otherwise unremarkable. IMPRESSION: 1. No acute intracranial abnormality. No acute ischemia or hemorrhage. 2. Age-related findings of atrophy with mild chronic microvascular ischemic changes. The above report was generated using voice recognition software. It may contain grammatical, syntax or spelling errors. Electronically signed by: Sly Watts M.D. 05/26/2017 1:33 PM Dictated Date/Time: 05/26/2017 1:23 PM
--- NOTE | 2017-05-26 13:49 | DIAGNOSTIC IMAGING REPORT ---
CHEST ONE VIEW PORTABLE CLINICAL HISTORY: Stroke COMPARISON STUDY: March 04, 2015 FINDINGS: The heart is the upper limits of normal in size. There is tortuosity/ectasia of the thoracic aorta. There is no failure. There is no focal pulmonary consolidation. There are no pleural effusions. There is a right-sided pleural diaphragmatic calcification.[ IMPRESSION: No active disease in the chest. Electronically signed by: Matthieu Ríos M.D. 05/26/2017 1:48 PM Dictated Date/Time: 05/26/2017 1:47 PM
[2017-05-26] MEDS ORDERED: IV FLUIDS COMPLETED PRN (14:00)
[2017-05-26 14:25] LABS: ESTIMATED AVERAGE GLUCOSE 105 mg/dl; HA1C FLAG Normal (Normal)
--- NOTE | 2017-05-26 14:27 | History and Physical ---
History & Physical Date & Time of Service: May 26, 2017 at 14:19 Chief Complaint: Confusion Primary Care Physician: Mariajose John M.D. History of Present Illness Source: patient 81-year-old male brought in at the recommendation of his primary care doctor after having some transient neurological changes. Reportedly this morning the patient had some confusion and when instructed to close his eyes tightly and discordance between his left eye and right eye where he couldn't squeeze his left eye is tight he had no garbled speech she had no arm drift. Reportedly these events occurred shortly after intercourse. The patient now has returned to about his normal state his and son are in the room is he did have a stroke alert which he was not a candidate for lytic therapy he did have imaging including CT MRI and MRA of his brain which no showed no ischemic event considerations for admission or TIA versus transient global amnesia patient is agreeable for observation Past Medical/Surgical History Medical Problems: (1) Basal cell carcinoma Status: Resolved (2) Hypertension Status: Chronic (3) Osteoarthritis Status: Chronic Surgical Problems: (1) H/O hand surgery Status: Resolved (2) H/O shoulder surgery Status: Resolved (3) History of cataract surgery Status: Resolved (4) History of total right knee replacement Status: Resolved (5) Previous back surgery Status: Resolved (6) Status post left hip replacement Status: Resolved Social History Smoking Status: Former Smoker Marital Status: Occupational Status: retired Immunizations History of Influenza Vaccine: Yes History of Tetanus Vaccine?: Yes History of Pneumococcal: Yes History of Hepatitis B Vaccine: Unknown Multi-Drug Resistant Organisms History of MDRO: No Allergies Coded Allergies: Adhesives (Verified Allergy, Mild, SKIN REDNESS, 01/11/17) Home Medications Scheduled Aspirin (Aspirin Chewable), 81 MG PO DAILY Calcium Carbonate (Calcium), 1 TAB PO BID Hctz/Lisinopril (Lisinopril/Hctz 10/12.5 Mg), 0.5 TAB PO QAM Multivitamins/Minerals (Mvi With Minerals), 1 TAB PO QAM Naproxen (Aleve), 220 MG PO QAM Review of Systems ROS: well nourished well developed No double vision blurry vision per the patient's own report No problems with speech or swallowing No palpitations, chest pain or pressure No Wheezing or breathing issues No abdominal pain nausea vomiting diarrhea changes in appetite or weight No burning urine urine frequency or changes in color No focal joint pain or muscle pain No skin rashes or oral lesions No unusual bruising or bleeding No focused back pain or numbness or loss of strength No changes in memory or confusion at this current time although his said he was confused earlier Physical Exam Vital Signs Date Time Temp Pulse Resp B/P (MAP) Pulse Ox O2 Delivery O2 Flow Rate FiO2 05/26/17 14:00 65 16 149/80 95 Room Air 05/26/17 13:34 96 Room Air 05/26/17 12:47 62 172/99 96 Room Air 05/26/17 12:40 64 20 176/91 95 Room Air 05/26/17 12:16 66 20 193/89 97 Room Air 05/26/17 12:00 58 20 157/88 99 Room Air 05/26/17 11:45 61 20 167/93 98 Room Air 05/26/17 11:41 61 20 192/99 98 Room Air 05/26/17 11:22 61 20 179/89 97 Room Air 05/26/17 11:17 67 05/26/17 11:15 97 Room Air 05/26/17 10:59 36.5 64 16 183/95 97 Room Air General Appearance: WD/WN, no apparent distress Head: normocephalic, atraumatic Eyes: PERRL, EOMI Neck: supple, no JVD Respiratory/Chest: chest non-tender, lungs clear, normal breath sounds Cardiovascular: regular rate, rhythm, no murmur Abdomen/GI: normal bowel sounds, non tender, soft Back: no CVA tenderness, normal range of motion Extremities/Musculoskelatal: no pedal edema, normal range of motion Neurologic/Psych: car changer II-XII nml as tested, no motor/sensory deficits, alert, normal mood/affect, oriented x 3 Skin: normal color, warm/dry, no rash Diagnostics Laboratory Results Results Past 24 Hours Test 05/26/17 11:10 05/26/17 11:27 05/26/17 12:20 Range/Units White Blood Count 7.46 4.8-10.8 K/uL Red Blood Count 4.61 4.7-6.1 M/uL Hemoglobin 14.5 14.0-18.0 g/dL Hematocrit 41.8 42-52 % Mean Corpuscular Volume 90.7 80-100 fL Mean Corpuscular Hemoglobin 31.5 25-34 pg Mean Corpuscular Hemoglobin Concent 34.7 32-36 g/dl Platelet Count 234 130-400 K/uL Mean Platelet Volume 9.0 7.4-10.4 fL Neutrophils (%) (Auto) 62.1 % Lymphocytes (%) (Auto) 27.6 % Monocytes (%) (Auto) 8.2 % Eosinophils (%) (Auto) 1.3 % Basophils (%) (Auto) 0.4 % Neutrophils # (Auto) 4.63 1.4-6.5 K/uL Lymphocytes # (Auto) 2.06 1.2-3.4 K/uL Monocytes # (Auto) 0.61 0.11-0.59 K/uL Eosinophils # (Auto) 0.10 0-0.5 K/uL Basophils # (Auto) 0.03 0-0.2 K/uL RDW Standard Deviation 41.9 36.4-46.3 fL RDW Coefficient of Variation 12.6 11.5-14.5 % Immature Granulocyte % (Auto) 0.4 % Immature Granulocyte # (Auto) 0.03 0.00-0.02 K/uL Prothrombin Time 10.4 9.0-12.0 SECONDS Prothromb Time International Ratio 1.0 0.9-1.1 Activated Partial Thromboplast Time 29.4 21.0-31.0 SECONDS Partial Thromboplastin Ratio 1.1 Sodium Level 137 136-145 mmol/L Potassium Level 3.9 3.5-5.1 mmol/L Chloride Level 103 98-107 mmol/L Carbon Dioxide Level 29 21-32 mmol/L Anion Gap 5.0 15.0 16-25 mmol/L Blood Urea Nitrogen 19 7-18 mg/dl Creatinine 0.97 0.60-1.40 mg/dl Est Creatinine Clear Calc Drug Dose 67.0 ml/min Estimated GFR () 85.7 Estimated GFR (Non- 73.9 BUN/Creatinine Ratio 19.8 10-20 Random Glucose 112 70-99 mg/dl Calcium Level 9.1 8.5-10.1 mg/dl Magnesium Level 2.2 1.8-2.4 mg/dl Total Creatine Kinase 97 39-308 U/L Creatine Kinase MB 1.8 0.5-3.6 ng/ml Creatine Kinase MB Ratio 1.9 0-3.0 Troponin I < 0.015 0-0.045 ng/ml Bedside Hemoglobin 14.3 14.0-18.0 g/dl Bedside Hematocrit 42 42-52 % Bedside Sodium 139 135-144 mEq/L Bedside Potassium 4.0 3.3-5.0 mEq/L Bedside Chloride 100 101-112 mEq/L Bedside Total CO2 29 24-31 mEq/l Bedside Blood Urea Nitrogen 19 7-18 mg/dl Bedside Creatinine 0.9 0.6-1.3 mg/dl Bedside Glucose (other) 113 70-99 mg/dl Bedside Ionized Calcium (Ran) 1.25 1.12-1.32 mmol/l Urine Color YELLOW Urine Appearance CLEAR CLEAR Urine pH 5.5 4.5-7.5 Urine Specific [place] 1.012 1.000-1.030 Urine Protein NEG NEG Urine Glucose (UA) NEG NEG Urine Ketones NEG NEG Urine Occult Blood NEG NEG Urine Nitrite NEG NEG Urine Bilirubin NEG NEG Urine Urobilinogen NEG NEG Urine Leukocyte Esterase NEG NEG Diagnostic Radiology CT, MRI and MRA of Brain are negative CXR normal Normal EKG Impression Assessment and Plan 81 Male with transient neurologic symptoms after exertion. Negative imaging to suggest ischemic event, in case of possible TIA, will have increase aspirin and start statin, hold traditional antihypertensives and use prn hydralazine. will have neurologic evaluation as stroke alert did discuss possible Transient Global Amnesia. lovenox for dvt prevention Advanced Directives Existing Living Will: Yes Existing Power of Ladle Builder: Yes VTE Prophylaxis VTE Risk Assessment Done? Y/N: Yes Risk Level: Moderate
[2017-05-26 14:36] VITALS: O2SAT 95
[2017-05-26 15:40] VITALS: BP 167/80; PULSE 74; TEMP 36.4; O2SAT 94
[2017-05-26 19:20] VITALS: BP 122/79; PULSE 69; TEMP 36.6; O2SAT 95
[2017-05-26] MEDS ORDERED: ENOXAPARIN 40 MG/0.4 ML SYR SC SCH (21:00)
[2017-05-27 00:08] VITALS: BP 126/76; PULSE 60; TEMP 36.5; O2SAT 95
[2017-05-27 03:54] VITALS: BP 131/68; PULSE 60; TEMP 36.6; O2SAT 95
[2017-05-27 05:54] LABS: BASO % 0.3 %; BASO ABS # 0.02 K/uL (0-0.2); COMPLETE YES; EOS % 1.9 %; HEMATOCRIT 38.4 % (42-52); IG% 0.3 %; LYMPH % 30.5 %; LYMPH ABS # 1.91 K/uL (1.2-3.4); MEAN CELL VOLUME 91.2 fL (80-100); MEAN CORPUSCULAR HEMOGLOBIN 30.9 pg (25-34); MEAN CORPUSCULAR HGB CONC 33.9 g/dl (32-36); MEAN PLATELET VOLUME 8.8 fL (7.4-10.4); MONO % 8.9 %; NEUT % 58.1 %; PLATELET COUNT 174 K/uL (130-400); RED BLOOD COUNT 4.21 M/uL (4.7-6.1); WHITE BLOOD COUNT 6.27 K/uL (4.8-10.8)
[2017-05-27 06:25] LABS: BUN/CREATININE RATIO 20.4 (10-20); CALCIUM 8.5 mg/dl (8.5-10.1); CREATININE 0.83 mg/dl (0.60-1.40)
[2017-05-27 06:28] LABS: CHOLESTEROL/HDL RATIO 2.8
[2017-05-27 07:43] VITALS: BP 143/81; PULSE 54; TEMP 36.6; O2SAT 94
[2017-05-27] MEDS ORDERED: ATORVASTATIN 40 MG TAB PO SCH (09:00)
[2017-05-27] MEDS ORDERED: ASPIRIN 325 MG ECTAB PO SCH (09:00)
--- NOTE | 2017-05-27 10:31 | Neurology Consultation ---
Neurology Consultation Date of Consultation: May 27, 2017. Attending Physician: Rodney Catherine D.O. Primary Care Physician: Mariajose John M.D. Reason for Consultation: Patient is a 81-year-old, accompanied by his at bedside, was asked to see the request of Dr. Cortez, for neurologic consultation regarding transient memory loss. History of Present Illness Source: patient, caregiver, spouse, clinic records, hospital records This patient has a history of hypertension and significant osteoarthritis. He does not have a history of stroke, diabetes, heart disease, or other vascular issues. The patient was in his usual state of health when he woke up around 7 o'clock in the morning on May 26. He recalls this in what he ate for breakfast. He also recalls the "furnace man" coming up around 8 o'clock and checking on their furnace. After this, he has no recall until the emergency room. Apparently, he was doing well and engaged in sexual intercourse with his around 1000 hours. According to her, he was acting and remembering fine. About 10-15 minutes later he was staring and not remembering things well. He seemed confused. He did not have speech problems, weakness or numbness of his limbs, facial droop, or complaints of pain or headache. He was not short of breath or diaphoretic. He arrived on May 26 at the emergency room at 1059 hours with a temperature of 36.5, pulse 64 and regular, respiratory rate 16 uncomfortable, O2 saturation 97 percent, and blood pressure 183/95. He was described as somewhat disoriented but no focal neurologic deficits. The patient himself started having some recall of events in the ER. He was evaluated with a [facility] neurologist via tele stroke who felt that this was likely transient global amnesia. CT scan of the head showed a possible 1 centimeter cerebellar hypodensity versus artifact. MRI of the brain was unremarkable with no previous stroke or cerebellar lesion. He did have some mild atrophy in general and some very mild small vessel ischemic changes and old nature. MR angiography of the brain was unremarkable. Chest x-ray was unremarkable. CBC, Chem profile, liver profile, and lipid profile were normal. I reviewed all labs and films of all the above tests and have discussed them with the patient and his . He had no further events overnight. There was no seizure activity noted by the and the patient of self has no recall from about 8 o'clock in the morning until sometime after being in the emergency room. He remembers that dietitian teaching and the events of May 25 now fairly well. By the evening of May 26 his memory was back to normal. Currently he denies pain, weakness, numbness, headaches, shortness of breath, speech problems, or mentation problems. Past Medical/Surgical History Medical Problems: (1) Altered mental status Status: Acute (2) Confusion Status: Acute Hypertension Osteoarthritis History of basal cell carcinoma removal No history of significant migraines but has had headaches in the past occasionally. Post left hand tendon surgery Left shoulder surgery 2011 Bilateral cataract surgery 2007 Right total knee replacement January 2014, with a revision replacement January 2015 Left total hip replacement Lumbar laminectomy with fusion 1994 at [facility] Family History Father age 62 of an NH. Mother in her late 70s with diabetes complications Social History Patient never smoked cigarettes. He used to smoke pipe and cigars but he quit 20+ years ago. Patient will go through a case of beer in about a year and a half. Therefore he only rarely has alcohol. 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62 Smoking Status: Former smoker Smokeless Tobacco Use: No Alcohol Use: occasionally Drug Use: none Marital Status: Housing Status: lives with significant other Occupation Status: retired Allergies Coded Allergies: Adhesives (Verified Allergy, Mild, SKIN REDNESS, 01/11/17) Current Inpatient Medications Current Inpatient Medications Medications (Trade) Dose Ordered Sig/Meaghan Route Start Time Stop Time Status Last Admin Dose Admin Atorvastatin Calcium (Lipitor Tab) 40 mg QAM PO 05/27/17 09:00 06/26/17 08:59 05/27/17 08:03 40 MG Aspirin (Ecotrin Tab) 325 mg QAM PO 05/27/17 09:00 06/26/17 08:59 05/27/17 08:03 325 MG Miscellaneous Information (Pharmacist Discharge Med Rec Consult) 1 ea UD PRN N/A 05/26/17 13:00 06/25/17 12:59 Enoxaparin Sodium (Lovenox Inj) 40 mg HS SC 05/26/17 21:00 06/25/17 20:59 05/26/17 21:26 40 MG Acetaminophen (Tylenol Tab) 650 mg Q4H PRN PO 05/26/17 13:00 06/25/17 12:59 Al Hydrox/Mg Hydrox/Simethicone (Maalox Max Susp) 15 ml Q4H PRN PO 05/26/17 13:00 06/25/17 12:59 Ondansetron HCl (Zofran Inj) 4 mg Q6H PRN IV 05/26/17 13:00 06/25/17 12:59 Polyethylene (Miralax Powder Packet) 17 gm DAILY PRN PO 05/26/17 13:00 06/25/17 12:59 Hydralazine HCl (HydrALAZINE INJ) 10 mg Q4H PRN IV 05/26/17 13:15 06/25/17 13:14 Miscellaneous (Iv Fluids Completed) 1 ea PRN PRN N/A 05/26/17 14:00 05/26/18 13:59 Review of Systems Constitutional: No fever, No weakness, No fatigue Eyes: No worsening of vision, No diplopia ENT: No hearing loss, No tinnitus, No trouble swallowing Respiratory: No cough, No shortness of breath Cardiovascular: No chest pain, No palpitations Abdomen: No pain, No nausea Musculoskeletal: No joint pain, No muscle pain Genitourinary - Male: No dysuria, No urinary incontinence Neurologic: + memory loss, No weakness, No numbness/tingling, No vertigo, No balance problems Psychiatric: No depression symptoms, No anxiety Endocrine: No fatigue Hematologic / Lymphatic: No abnormal bleeding/bruising Integumentary: No rash Allergic / Immunologic: No hives Physical Exam Vital Signs (Past 24 Hrs): Date Time Temp Pulse Resp B/P (MAP) Pulse Ox O2 Delivery O2 Flow Rate FiO2 05/27/17 07:45 Room Air 05/27/17 07:43 36.6 54 17 143/81 (101) 94 Room Air 05/27/17 04:05 Room Air 05/27/17 03:54 36.6 60 17 131/68 (89) 95 Room Air 05/27/17 00:08 36.5 60 17 126/76 (93) 95 Room Air 05/27/17 00:05 Room Air 05/27/17 00:05 Room Air 05/26/17 20:00 Room Air 05/26/17 19:20 36.6 69 16 122/79 (93) 95 Room Air 05/26/17 16:00 Room Air 05/26/17 15:40 36.4 74 16 167/80 (109) 94 Room Air 05/26/17 14:36 60 20 160/83 95 05/26/17 14:00 65 16 149/80 95 Room Air 05/26/17 13:34 96 Room Air 05/26/17 12:47 62 172/99 96 Room Air 05/26/17 12:40 64 20 176/91 95 Room Air 05/26/17 12:16 66 20 193/89 97 Room Air 05/26/17 12:00 58 20 157/88 99 Room Air 05/26/17 11:45 61 20 167/93 98 Room Air 05/26/17 11:41 61 20 192/99 98 Room Air 05/26/17 11:22 61 20 179/89 97 Room Air 05/26/17 11:17 67 05/26/17 11:15 97 Room Air 05/26/17 10:59 36.5 64 16 183/95 97 Room Air Patient is right-handed for writing and throwing, and left-handed for eating and batting. He kicks with his right foot. The patient is awake and alert. Speech is normal without aphasia or dysarthria. Mentation and thought processes are intact with orientation and normal fund of knowledge. Mood and affect are normal and appropriate. Appearance and grooming are normal. Long and short-term memory are intact, except for the time frame of about 8 o'clock in the morning May 26 through about mid afternoon. The discs are sharp with positive venous pulsations. There are no exudates, hemorrhages, or blood vessel changes seen. Pupils are 3mm bilaterally and reactive to light. Extraocular eye muscles are intact without nystagmus. Visual acuity and visual moeller seem normal grossly to confrontation. There are no deficits to sensation of the face bilaterally. Corneal reflexes are positive bilaterally. Facial strength and symmetry is normal bilaterally. Hearing seems intact grossly to voice and finger rub. Palate moves well without asymmetry. There is normal sternocleidomastoid and trapezius strength bilaterally. Tongue is midline with good strength bilaterally. Neck is with full range of motion without discomfort. There are no cervical bruits. There are no cranial or ocular bruits. Heart is without murmur. Cervical, thoracic, and lumbar spine are nontender to palpation. Gait is normal. There is good arm swing, turn, stance, and balance. With outstretched arms there is no drift. There are no resting, postural, or action tremors. There is no ataxia with [id number] testing. There is good facility in the hands. There are no abnormal involuntary movements noted. Motor strength is 5/5 diffusely in the arms bilaterally including deltoids, biceps, brachioradialis, wrist flexors and extensors, lab specialist, and intrinsic hand muscles. Motor strength is 5/5 diffusely in the legs bilaterally including hip flexors, quadriceps, hamstring, gastrocnemius, tibialis anterior, tibialis posterior, and peroneii muscles bilaterally. Toe extensors are normal and there is good bulk in the extensor digitorum brevis muscle bilaterally. The limbs have good tone without rigidity or spasticity, and there is no atrophy noted. Muscle bulk is normal, there is no tenderness, no myotonia noted to percussion, and no fasciculations seen. Sensory examination is intact to pin and touch throughout all four limbs. Reflexes are 1/4 in the biceps, triceps, brachioradialis, quadriceps, and Achilles tendons bilaterally. Toes are downgoing with plantar stimulation bilaterally. Peripheral pulses are present and of normal quality distally in all four limbs. There is no peripheral edema noted. Laboratory Results Past 24 Hours: 05/27/17 05:32 Red Blood Count 4.21, Mean Corpuscular Volume 91.2, Mean Corpuscular Hemoglobin 30.9, Mean Corpuscular Hemoglobin Concent 33.9, Mean Platelet Volume 8.8, Neutrophils (%) (Auto) 58.1, Lymphocytes (%) (Auto) 30.5, Monocytes (%) (Auto) 8.9, Eosinophils (%) (Auto) 1.9, Basophils (%) (Auto) 0.3, Neutrophils # (Auto) 3.64, Lymphocytes # (Auto) 1.91, Monocytes # (Auto) 0.56, Eosinophils # (Auto) 0.12, Basophils # (Auto) 0.02 05/27/17 05:32 Test 05/26/17 11:10 05/26/17 11:23 05/26/17 11:27 05/26/17 12:20 Prothrombin Time 10.4 SECONDS (9.0-12.0) Prothromb Time International Ratio 1.0 (0.9-1.1) Activated Partial Thromboplast Time 29.4 SECONDS (21.0-31.0) Partial Thromboplastin Ratio 1.1 Estimated Average Glucose 105 mg/dl Hemoglobin A1c 5.3 % (4.5-5.6) Magnesium Level 2.2 mg/dl (1.8-2.4) Total Creatine Kinase 97 U/L (39-308) Creatine Kinase MB 1.8 ng/ml (0.5-3.6) Creatine Kinase MB Ratio 1.9 (0-3.0) Troponin I < 0.015 ng/ml (0-0.045) Bedside Glucose 125 mg/dl (70-99) Bedside Hemoglobin 14.3 g/dl (14.0-18.0) Bedside Hematocrit 42 % (42-52) Bedside Sodium 139 mEq/L (135-144) Bedside Potassium 4.0 mEq/L (3.3-5.0) Bedside Chloride 100 mEq/L (101-112) Bedside Total CO2 29 mEq/l (24-31) Bedside Blood Urea Nitrogen 19 mg/dl (7-18) Bedside Creatinine 0.9 mg/dl (0.6-1.3) Bedside Glucose (other) 113 mg/dl (70-99) Bedside Ionized Calcium (Ran) 1.25 mmol/l (1.12-1.32) Urine Color YELLOW Urine Appearance CLEAR (CLEAR) Urine pH 5.5 (4.5-7.5) Urine Specific [place] 1.012 (1.000-1.030) Urine Protein NEG (NEG) Urine Glucose (UA) NEG (NEG) Urine Ketones NEG (NEG) Urine Occult Blood NEG (NEG) Urine Nitrite NEG (NEG) Urine Bilirubin NEG (NEG) Urine Urobilinogen NEG (NEG) Urine Leukocyte Esterase NEG (NEG) Test 05/27/17 05:32 White Blood Count 6.27 K/uL (4.8-10.8) Red Blood Count 4.21 M/uL (4.7-6.1) Hemoglobin 13.0 g/dL (14.0-18.0) Hematocrit 38.4 % (42-52) Mean Corpuscular Volume 91.2 fL (80-100) Mean Corpuscular Hemoglobin 30.9 pg (25-34) Mean Corpuscular Hemoglobin Concent 33.9 g/dl (32-36) Platelet Count 174 K/uL (130-400) Mean Platelet Volume 8.8 fL (7.4-10.4) Neutrophils (%) (Auto) 58.1 % Lymphocytes (%) (Auto) 30.5 % Monocytes (%) (Auto) 8.9 % Eosinophils (%) (Auto) 1.9 % Basophils (%) (Auto) 0.3 % Neutrophils # (Auto) 3.64 K/uL (1.4-6.5) Lymphocytes # (Auto) 1.91 K/uL (1.2-3.4) Monocytes # (Auto) 0.56 K/uL (0.11-0.59) Eosinophils # (Auto) 0.12 K/uL (0-0.5) Basophils # (Auto) 0.02 K/uL (0-0.2) RDW Standard Deviation 42.2 fL (36.4-46.3) RDW Coefficient of Variation 12.7 % (11.5-14.5) Immature Granulocyte % (Auto) 0.3 % Immature Granulocyte # (Auto) 0.02 K/uL (0.00-0.02) Anion Gap 7.0 mmol/L (3-11) Est Creatinine Clear Calc Drug Dose 72.2 ml/min Estimated GFR () 97.0 Estimated GFR (Non- 83.7 BUN/Creatinine Ratio 20.4 (10-20) Calcium Level 8.5 mg/dl (8.5-10.1) Triglycerides Level 114 mg/dl (0-150) Cholesterol Level 136 mg/dl (0-200) HDL Cholesterol 48 mg/dl LDL Cholesterol, Calculated 65 mg/dl VLDL Cholesterol, Calculated 23 mg/dl Cholesterol/HDL Ratio 2.8 Imaging BRAIN WITHOUT CONTRAST HISTORY: 81 years-old Male acute CVA acute strokelike symptoms with acute confusion COMPARISON: CT head and MRA head of same day TECHNIQUE: Multiplanar multisequence MRI of the brain was obtained without contrast. FINDINGS: There is no restricted diffusion to suggest acute ischemia. Ill-defined area of reported low-attenuation of the right cerebellum likely correlates with normal brain parenchyma. Midline structures including the corpus callosum, brainstem, optic chiasm, pituitary and pineal glands are unremarkable on the sagittal T1 sequence. There is no cerebellar tonsillar herniation, however the cervical tonsils are low-lying extending 3 mm caudal to the foramen magnum. Degenerative changes of the imaged cervical spine are noted. There is mild to moderate atrophy with ex vacuo ventriculomegaly. A few scattered punctate foci of T2/FLAIR prolongation are noted within the subcortical and periventricular white matter of the cerebral hemispheres bilaterally suggesting mild chronic microvascular ischemic changes. No acute intracranial hemorrhage, midline shift, hydrocephalus, abnormal extra-axial collections or intracranial mass. The major flow voids at the level of the skull base are patent. Orbits are symmetric. There is mild mucosal thickening of the ethmoid air cells. 9 mm T2 hyperintense structure of the right parietal calvarium on image 16 series 7 suggests arachnoid granulation. The calvarium and scalp soft tissues are otherwise unremarkable. IMPRESSION: 1. No acute intracranial abnormality. No acute ischemia or hemorrhage. 2. Age-related findings of atrophy with mild chronic microvascular ischemic changes. The above report was generated using voice recognition software. It may contain grammatical, syntax or spelling errors. Electronically signed by: Sly Watts M.D. 05/26/2017 1:33 PM MR ANGIOGRAM OF THE BRAIN CLINICAL HISTORY: Change in mental status. COMPARISON STUDY: CT of the brain dated 05/26/2017. TECHNIQUE: 3-D [id number] MR angiography of the intracranial circulation is performed. 3-D tumble views are created and assessed. IV contrast was not administered for this examination. FINDINGS: The internal carotid arteries are widely patent bilaterally, as are the anterior and middle cerebral arteries. The right A1 segment is atretic. The right anterior cerebral artery is supplied via the anterior communicating artery. The vertebrobasilar system and posterior cerebral arteries are widely patent. The right vertebral artery is dominant. There is no aneurysm, high-grade stenosis, or focal vessel cutoff seen throughout the intracranial circulation. The brain parenchyma is normal as visualized. IMPRESSION: Unremarkable MR angiogram of the brain. Electronically signed by: Higinio Berg M.D. 05/26/2017 1:17 PM Impression 1. Episode of acute memory loss May 26 now resolved This is consistent with transient global amnesia. I suspect he had vasospasm triggered by hypertension and his sexual intercourse activity. This is not consistent with a TIA otherwise. There is no evidence of stroke on MRI. The patient has no focal neurologic deficits, meningeal signs, or encephalopathy. He is back to his baseline. 2. Hypertension, not adequately controlled on admission. Currently improved. 3. Very mild old small vessel ischemic changes seen on MRI. Plan 1. Carotid ultrasound and echocardiogram if not already ordered. 2. I see no reason for any additional neurologic testing otherwise. 3. Continue 81 milligram aspirin tablet daily. 4. My drug of choice for prevented vasospasm in this setting is verapamil. Typically I would use 180 milligrams XR once daily in the morning Otherwise, I have no further neurologic recommendations. Please contact me if I can be of further assistance. I have communicated with Dr. Catherine regarding this case.
--- NOTE | 2017-05-27 10:57 | DIAGNOSTIC IMAGING REPORT ---
CAROTID DOPPLER NECK ART HISTORY: Mental status change TIA COMPARISON: None. TECHNIQUE: Real-time, grayscale, and color Doppler sonography of the carotid arteries was performed. Imaging reviewed in the transverse and longitudinal planes. All measurements were calculated based on NASCET criteria. FINDINGS: Antegrade flow is seen in the bilateral vertebral arteries. The brachial pressures are hemodynamically similar. Mild plaque formation bilaterally The peak systolic velocity within the right ICA is 91. The right systolic ratio is 1.3. The peak systolic velocity within the left ICA is 72. The left systolic ratio is 1.0. IMPRESSION: Mild plaque formation bilaterally. No significant stenosis. The above report was generated using voice recognition software. It may contain grammatical, syntax or spelling errors. Electronically signed by: Vinod Alaniz M.D. 05/27/2017 10:55 AM Dictated Date/Time: 05/27/2017 10:54 AM
[2017-05-27] MEDS ORDERED: ACET1TAB84 PO (14:36)
--- NOTE | 2017-05-27 14:51 | Discharge Instructions ---
Discharge Instructions Date of Service May 27, 2017. 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 Instructions / Follow-Up Instructions / Follow-Up transient global amnesia -what happened with you is a fairly "off the beaten path" neurologic symptom. more than likely, with the way it came and went, and the symptoms you showed, it 's more likely related to a spasm of blood vessels in your brain than more typical stroke syndromes involving blocked blood vessels and clots ---in the evaluation for traditional stroke risks, your heart rhythms did not show anything that would lead to clot, your EKGs looked reassuring, and therefore a heart source of clot causing the symptoms was exceedingly unlikely. as part of standard of care, we did get the echocardiogram (ultrasound of your heart) but as of now we'll be waiting on the geotechnical operating engineer to read it. because it's so unlikely to show anything of significance, we did not feel it necessary to keep you "prisoner" in the hospital waiting for it to be read. ---we also checked carotid artery ultrasound - as blockages in the carotids can throw plaque and cause brain related neurologic symptoms. yours actually looked very reassuring, with the radiologist seeing only mild plaque. for context, to be enough to be concerning, a carotid needs to show a greater than 50% blockage, and yours were clear enough that they couldn't really even put a percentage on it ---lastly, to look for signs of blocked blood vessels in the brain, we looked directly at the blood vessels with an "MR Angiogram" (MRI of the blood vessels) -- they looked normal, and we looked at risks for things that could block blood vessels too small to show up on the MRA (cholesterol, sugar) -- those both looked good - your numbers are included on this handout. ---both because of your symptoms fitting more with spasm of blood vessels, and by excluding the usual things that we see as causing more typical strokes, it appears highly likely that this was all from spasm of blood vessels in your brain ---a different family of blood pressure medications, called calcium channel blockers, tends to do a better job of protecting against blood vessel spasm. however, these medications are actually generally less protective against the more common things we worry about with high blood pressure than the medication you're on (ie a change in medication would be more protective against this particular situation, but less protective against heart attacks, strokes, and the typical things we treat high blood pressure to prevent). further, since you 're clearly very sensitive to the effects of medications for blood pressure, it' s pretty likely that we'd cause more problems than benefits by shuffling medications at this time ---one thing that we can have you do that would be protective to this situation is stopping the naproxen (alleve) -- newer studies are showing that anti- inflammatories make people less able to dilate (open) blood vessels when they need to. this is believed to be because in their cut-down of inflammatory pain chemicals, anti-inflammatories reduce the production of a chemical called prostaglandin. while prostaglandin is further metabolized into inflammatory pain chemicals, in its "raw" form, prostaglandins allow blood vessels to dilate more readily. give a trial of tylenol arthritis (acetaminophen 650mg) up to three times a day for your arthritis pains -- acetaminophen works differently than anti-inflammatories so it does not have these blood vessel effects that we see in anti-inflammatory medications. the main thing to keep in mind with acetaminophen is simply that at repeated high dosing it can be hard on your liver (this is typically defined as more than 2000mg a day in correction use, or more than 4000mg a day in short term use) "generic" [place] instructions for anyone who comes with a situation initially concerning for stroke like syndromes: Risk Factors for Stroke: You can reduce your chances of stroke by working with your medical provider to adopt a healthy lifestyle. Some specific ways to lower your chance of stroke are: * If you are a smoker, now is the time to stop smoking cigarettes * If you are diabetic, improve the control of your blood sugars * Avoid excessive amounts of alcohol * Control high blood pressure * Lose weight if you are overweight * Be sure to lead an active lifestyle * Eat a healthy diet low in salt, cholesterol and fat You should know about other risk factors for stroke that you are unable to control. These include: * Age 55 years or older * Male gender * Certain racial groups: , or / * Family History of Stroke, Mini stroke or Heart Attack * Sickle Cell Disease Follow Up: It is important for you to keep your follow up appointments with your medical provider. Current Hospital Diet Patient's current hospital diet: AHA Diet (Heart Healthy) Discharge Diet Recommended Diet: Regular Diet Pending Studies Studies pending at discharge: yes List of pending studies: echocardiogram (ultrasound of your heart) has been done, but the reading is still pending. on the very rare chance of anything urgent, we'll call you right away. assuming it looks as normal as we expect it to, Dr Daniel will be able to review it with you at your follow up appointment Laboratory Results Hemoglobin A1c Test 05/26/17 11:10 Range/Units Estimated Average Glucose 105 mg/dl Hemoglobin A1c 5.3 4.5-5.6 % Lipid Panel Test 05/27/17 05:32 Range/Units Triglycerides Level 114 0-150 mg/dl Cholesterol Level 136 0-200 mg/dl HDL Cholesterol 48 mg/dl Cholesterol/HDL Ratio 2.8 LDL Cholesterol, Calculated 65 mg/dl Medical Emergencies . Who to Call and When: Medical Emergencies: Call 911 immediately if you experience any of the following warning signs and symptoms of Stroke: * Sudden numbness or weakness of the face, arm or leg, especially on one side of the body * Sudden confusion, trouble speaking or understanding * Sudden trouble seeing in one or both eyes * Sudden trouble walking, dizziness, loss of balance or coordination * Sudden severe headache with no cause Do not delay calling 911 if you experience any warning signs or symptoms of a stroke. Delay in seeking medical attention may affect what treatments can be given to you. . Non-Emergent Contact Non-Emergency issues call your: Primary Care Provider . . "Provider Documentation" section prepared by Rodney Catherine. . Stroke Core Measures Reason no t-PA for Stroke: Treatment not indicated Reason no antithrom by day 2: Treatment provided - N/A Reason no antithrom at D/C: Treatment provided - N/A Reason no statin at D/C: Treatment not indicated Reason no anticoag w/a fib: Treatment not indicated VTE Core Measure Inpt VTE Proph given/why not?: Enoxaparin (Lovenox)SQ
[2017-05-27 15:13] VITALS: BP 143/81; PULSE 54; TEMP 36.6; O2SAT 94
[2017-05-27] MEDS ORDERED: PERFLUTREN LIPID MICROSPHERE (DEFINITY) IV ONE (15:19)
--- NOTE | 2017-05-27 16:42 | ECHOCARDIOGRAM REPORT ---
*NOTICE TO RECEIVING REPUBLICAN AGENCY This information is strictly Confidential and protected under [place] law. [place] law prohibits you from making any further disclosure of this information unless further disclosure is expressly permitted by the written consent of the person to whom it pertains or is authorized by law. A general authorization for the release of medical or other information is not sufficient for this purpose. Hospital accepts no responsibility if the information is made available to any other person, INCLUDING THE PATIENT. Interpretation Summary * Name: RUSSELL MARES Study Date: 05/27/2017 01:59 PM BP: 143/81 mmHg * Patient Location: [facility]\S\N282\S\2 HR: 54 * : 1935 (M/d/yyyy) Gender: Male Height: 69 in * Age: 81 yrs Ethnicity: [place] Weight: 186 lb * Ordering Physician: Rodney Catherine * Referring Physician: Self, Referred * Performed By: Trisha Rinaldi RDCS * * Reason For Study: TIA * BSA: 2.0 m2 * -- Conclusions -- * Left ventricular systolic function is normal. * No regional wall motion abnormalities noted. * Ejection Fraction = 65-70%. * There is mild concentric left ventricular hypertrophy. * Injection of contrast documented no interatrial shunt. Procedure Details * A complete two-dimensional transthoracic echocardiogram was performed (2D, M-mode, Doppler and color flow Doppler). * A saline contrast injection was performed to assess for cardiac shunting. * The injection was performed through an intravenous line in the left arm. * The attending nurse who injected the saline contrast was Thelma Cesar RN. * A total of 30 cc of agitated saline was given. * A contrast injection of Definity was performed to improve assessment of LV function. * Contrast was injected into an intravenous site in the left arm. * One vial of Definity ultrasound contrast was diluted in normal saline to a total volume of 10 ml. A total of '2' ml of solution was administered during imaging. * Lot # [id number] of Definity utilized for procedure. * Expiration date Jun 27. * The attending nurse who injected the contrast agent was Thelma Cesar RN. Left Ventricle * The left ventricle is normal in size. * There is mild concentric left ventricular hypertrophy. * Ejection Fraction = 65-70%. * Left ventricular systolic function is normal. * No regional wall motion abnormalities noted. Right Ventricle * The right ventricle is grossly normal size. * The right ventricular systolic function is normal as assessed by tricuspid annular plane systolic excursion (TAPSE) (normal >1.5 cm). Atria * The left atrium is mildly dilated. * Right atrial size is normal. * Injection of contrast documented no interatrial shunt. Mitral Valve * The mitral valve anatomy is normal. * There is no mitral valve stenosis. * Significant mitral regurgitation is absent. Tricuspid Valve * The tricuspid valve is not well visualized, but is grossly normal. * There is no tricuspid stenosis. * Significant tricuspid regurgitation is absent. Aortic Valve * The aortic valve is normal in structure and function. * Aortic stenosis is absent. * No aortic regurgitation is present. Pulmonic Valve * The pulmonary valve is not well seen, but the Doppler examination is normal without significant regurgitation or stenosis. Great Vessels * Mild aortic root dilatation. * The pulmonary is not well visualized. Pericardium/Pleural * There is no pericardial effusion. Great Vessels * IVC not well visualized. MMode 2D Measurements and Calculations IVSd 1.1 cm LVIDd 3.8 cm LVIDs 2.5 cm LVPWd 1.1 cm IVS/LVPW 1.0 FS 34.2 % EDV(Teich) 62.6 ml ESV(Teich) 22.6 ml EF(Teich) 63.9 % EDV(cubed) 55.5 ml ESV(cubed) 15.9 ml EF(cubed) 71.5 % LV mass(C)d 135.4 grams LV mass(C)dI 67.6 grams/m\S\2 SV(Teich) 40.0 ml SI(Teich) 20.0 ml/m\S\2 SV(cubed) 39.7 ml SI(cubed) 19.8 ml/m\S\2 Ao root diam 3.9 cm Ao root area 12.1 cm\S\2 ACS 2.1 cm LA dimension 3.0 cm asc Aorta Diam 3.7 cm LA/Ao 0.76 LVOT diam 2.0 cm LVOT area 3.2 cm\S\2 LVAd ap4 33.4 cm\S\2 LVLd ap4 8.6 cm EDV(MOD-sp4) 102.6 ml EDV(sp4-el) 110.1 ml LVAs ap4 15.2 cm\S\2 LVLs ap4 6.5 cm ESV(MOD-sp4) 28.6 ml ESV(sp4-el) 29.9 ml EF(MOD-sp4) 72.1 % EF(sp4-el) 72.9 % LVAd ap2 19.1 cm\S\2 LVLd ap2 6.3 cm EDV(MOD-sp2) 48.2 ml EDV(sp2-el) 49.0 ml LVAs ap2 9.4 cm\S\2 LVLs ap2 4.9 cm ESV(MOD-sp2) 15.1 ml ESV(sp2-el) 15.4 ml EF(MOD-sp2) 68.6 % EF(sp2-el) 68.5 % LVLd %diff -36.48 % EDV(MOD-bp) 80.6 ml LVLs %diff -33.62 % ESV(MOD-bp) 24.3 ml EF(MOD-bp) 69.8 % SV(MOD-sp4) 73.9 ml SI(MOD-sp4) 36.9 ml/m\S\2 SV(MOD-sp2) 33.0 ml SI(MOD-sp2) 16.5 ml/m\S\2 SV(MOD-bp) 56.3 ml SI(MOD-bp) 28.1 ml/m\S\2 SV(sp4-el) 80.2 ml SI(sp4-el) 40.1 ml/m\S\2 SV(sp2-el) 33.6 ml SI(sp2-el) 16.8 ml/m\S\2 Doppler Measurements and Calculations MV E max shannan 76.6 cm/sec MV A max shannan 70.6 cm/sec MV E/A 1.1 MV dec time 0.32 sec Ao V2 max 102.9 cm/sec Ao max PG 4.2 mmHg Ao max PG (full) 1.7 mmHg CARMINE(V,A) 2.5 cm\S\2 CARMINE(V,D) 2.5 cm\S\2 LV V1 max PG 2.6 mmHg LV V1 max 79.9 cm/sec PA V2 max 64.7 cm/sec PA max PG 1.7 mmHg PA acc slope 411.8 cm/sec\S\2 PA acc time 0.13 sec PI max shannan 127.7 cm/sec PI max PG 6.5 mmHg PI dec slope 97.9 cm/sec\S\2 PI P1/2t 382.0 msec TR max shannan 91.5 cm/sec PA pr(Accel) 20.7 mmHg
--- NOTE | 2017-05-27 20:10 | Discharge Summary ---
Discharge Summary Date of Service May 27, 2017. 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 FINDINGS: There is no restricted diffusion to suggest acute ischemia. Ill-defined area of reported low-attenuation of the right cerebellum likely correlates with normal brain parenchyma. Midline structures including the corpus callosum, brainstem, optic chiasm, pituitary and pineal glands are unremarkable on the sagittal T1 sequence. There is no cerebellar tonsillar herniation, however the cervical tonsils are low-lying extending 3 mm caudal to the foramen magnum. Degenerative changes of the imaged cervical spine are noted. There is mild to moderate atrophy with ex vacuo ventriculomegaly. A few scattered punctate foci of T2/FLAIR prolongation are noted within the subcortical and periventricular white matter of the cerebral hemispheres bilaterally suggesting mild chronic microvascular ischemic changes. No acute intracranial hemorrhage, midline shift, hydrocephalus, abnormal extra-axial collections or intracranial mass. The major flow voids at the level of the skull base are patent. Orbits are symmetric. There is mild mucosal thickening of the ethmoid air cells. 9 mm T2 hyperintense structure of the right parietal calvarium on image 16 series 7 suggests arachnoid granulation. The calvarium and scalp soft tissues are otherwise unremarkable. IMPRESSION: 1. No acute intracranial abnormality. No acute ischemia or hemorrhage. 2. Age-related findings of atrophy with mild chronic microvascular ischemic changes. The above report was generated using voice recognition software. It may contain grammatical, syntax or spelling errors. Electronically signed by: Sly Watts M.D. 05/26/2017 1:33 PM Dictated Date/Time: 05/26/2017 1:23 PM echo Interpretation Summary * Name: RUSSELL MARES Date: 05/27/2017 01:59 PM BP: 143/81 mmHg * Patient Location: [facility]\\82\S\2 HR: 54 * : 1935 (M/d/yyyy) Gender: Male Height: 69 in * Age: 81 yrs Ethnicity: [place] Weight: 186 lb * Ordering Physician: Rodney Catherine * Referring Physician: Self, Referred * Performed By: Trisha Rinaldi RDCS * * Reason For Study: TIA * BSA: 2.0 m2 * -- Conclusions -- * Left ventricular systolic function is normal. * No regional wall motion abnormalities noted. * Ejection Fraction = 65-70%. * There is mild concentric left ventricular hypertrophy. * Injection of contrast documented no interatrial shunt. Procedure Details * A complete two-dimensional transthoracic echocardiogram was performed (2D, M-mode, Doppler and color flow Doppler). * A saline contrast injection was performed to assess for cardiac shunting. * The injection was performed through an intravenous line in the left arm. * The attending nurse who injected the saline contrast was Thelma Cesar RN. * A total of 30 cc of agitated saline was given. * A contrast injection of Definity was performed to improve assessment of LV function. * Contrast was injected into an intravenous site in the left arm. * One vial of Definity ultrasound contrast was diluted in normal saline to a total volume of 10 ml. A total of '2' ml of solution was administered during imaging. * Lot # [id number] of Definity utilized for procedure. * Expiration date Jun 27. * The attending nurse who injected the contrast agent was Thelma Cesar RN. Left Ventricle * The left ventricle is normal in size. * There is mild concentric left ventricular hypertrophy. * Ejection Fraction = 65-70%. * Left ventricular systolic function is normal. * No regional wall motion abnormalities noted. Right Ventricle * The right ventricle is grossly normal size. * The right ventricular systolic function is normal as assessed by tricuspid annular plane systolic excursion (TAPSE) (normal >1.5 cm). Atria * The left atrium is mildly dilated. * Right atrial size is normal. * Injection of contrast documented no interatrial shunt. Mitral Valve * The mitral valve anatomy is normal. * There is no mitral valve stenosis. * Significant mitral regurgitation is absent. Tricuspid Valve * The tricuspid valve is not well visualized, but is grossly normal. * There is no tricuspid stenosis. * Significant tricuspid regurgitation is absent. Aortic Valve * The aortic valve is normal in structure and function. * Aortic stenosis is absent. * No aortic regurgitation is present. Pulmonic Valve * The pulmonary valve is not well seen, but the Doppler examination is normal without significant regurgitation or stenosis. Great Vessels * Mild aortic root dilatation. * The pulmonary is not well visualized. Pericardium/Pleural * There is no pericardial effusion. Great Vessels * IVC not well visualized. [~ rep ct add3]] MR ANGIOGRAM OF THE BRAIN CLINICAL HISTORY: Change in mental status. COMPARISON STUDY: CT of the brain dated 05/26/2017. TECHNIQUE: 3-D [id number] MR angiography of the intracranial circulation is performed. 3-D tumble views are created and assessed. IV contrast was not administered for this examination. FINDINGS: The internal carotid arteries are widely patent bilaterally, as are the anterior and middle cerebral arteries. The right A1 segment is atretic. The right anterior cerebral artery is supplied via the anterior communicating artery. The vertebrobasilar system and posterior cerebral arteries are widely patent. The right vertebral artery is dominant. There is no aneurysm, high-grade stenosis, or focal vessel cutoff seen throughout the intracranial circulation. The brain parenchyma is normal as visualized. IMPRESSION: Unremarkable MR angiogram of the brain. Electronically signed by: Higinio Berg M.D. 05/26/2017 1:17 PM Dictated Date/Time: 05/26/2017 1:14 PM CAROTID DOPPLER NECK ART HISTORY: Mental status change TIA COMPARISON: None. TECHNIQUE: Real-time, grayscale, and color Doppler sonography of the carotid arteries was performed. Imaging reviewed in the transverse and longitudinal planes. All measurements were calculated based on NASCET criteria. FINDINGS: Antegrade flow is seen in the bilateral vertebral arteries. The brachial pressures are hemodynamically similar. Mild plaque formation bilaterally The peak systolic velocity within the right ICA is 91. The right systolic ratio is 1.3. The peak systolic velocity within the left ICA is 72. The left systolic ratio is 1.0. IMPRESSION: Mild plaque formation bilaterally. No significant stenosis. The above report was generated using voice recognition software. It may contain grammatical, syntax or spelling errors. Electronically signed by: Vinod Alaniz M.D. 05/27/2017 10:55 AM CHEST ONE VIEW PORTABLE CLINICAL HISTORY: Stroke COMPARISON STUDY: March 04, 2015 FINDINGS: The heart is the upper limits of normal in size. There is tortuosity/ectasia of the thoracic aorta. There is no failure. There is no focal pulmonary consolidation. There are no pleural effusions. There is a right-sided pleural diaphragmatic calcification.[ IMPRESSION: No active disease in the chest. Electronically signed by: Matthieu Ríos M.D. 05/26/2017 1:48 PM Dictated Date/Time: 05/26/2017 1:47 PM Last Resulted CBC 05/27/17 05:32 Red Blood Count 4.21, Mean Corpuscular Volume 91.2, Mean Corpuscular Hemoglobin 30.9, Mean Corpuscular Hemoglobin Concent 33.9, Mean Platelet Volume 8.8, Neutrophils (%) (Auto) 58.1, Lymphocytes (%) (Auto) 30.5, Monocytes (%) (Auto) 8.9, Eosinophils (%) (Auto) 1.9, Basophils (%) (Auto) 0.3, Neutrophils # (Auto) 3.64, Lymphocytes # (Auto) 1.91, Monocytes # (Auto) 0.56, Eosinophils # (Auto) 0.12, Basophils # (Auto) 0.02 Last Resulted BMP 05/27/17 05:32 Hemoglobin A1c Test 05/26/17 11:10 Range/Units Estimated Average Glucose 105 mg/dl Hemoglobin A1c 5.3 4.5-5.6 % Lipid Panel Test 05/27/17 05:32 Range/Units Triglycerides Level 114 0-150 mg/dl Cholesterol Level 136 0-200 mg/dl HDL Cholesterol 48 mg/dl Cholesterol/HDL Ratio 2.8 LDL Cholesterol, Calculated 65 mg/dl Consultations: neuro Medication Reconciliation New Medications: Acetaminophen (Tylenol Arthritis Ext Rel) 650 Mg Cplt 650 MG PO Q8H PRN for Pain, #100 CAP Continued Medications: Aspirin (Aspirin Chewable) 81 Mg Chew 81 MG PO DAILY Calcium Carbonate (Calcium) 600 Mg Tab 1 TAB PO BID Hctz/Lisinopril (Lisinopril/Hctz 10/12.5 Mg) 1 Ea Tab 0.5 TAB PO QAM, TAB Multivitamins/Minerals (Mvi With Minerals) Tab 1 TAB PO QAM, TAB Discontinued Medications: Naproxen (Aleve) 220 Mg Tab 220 MG PO QAM, TAB Discharge Exam Physical Exam: General Appearance: no apparent distress Eyes: EOMI ENT: hearing grossly normal Neck: trachea midline Respiratory/Chest: no respiratory distress, no accessory muscle use Extremities: normal inspection Neurologic/Psychiatric: closing coordinator II-XII nml as tested, alert, normal mood/affect Skin: normal color, warm/dry Hospital Course transient global amnesia, concern on TIA- -seems to have been vasospastic -no evidence of cardioembolic, carotid embolic, and really limited risk for small vessel disease -likely was vasospastic -discussed change from ACEi/HCTZ to calcium channel angeline but after extensive discussions with pt he's very sensitive to BP meds, and also with this event being a one-time event and unlikely to happen again, and with ACEi and HCTZ carrying better overal morbidity/mortality benefit for BP --> we all agreed to keep meds the same for now. ongoing outpt f/u. -stop NSAID due to prostaglandin inhibition -- use tylenol arthritis instead -stable for home -outpt f/u Total Time Spent: Greater than 30 minutes This includes examination of the patient, discharge planning, medication reconciliation, and communication with other providers. Discharge Instructions Please refer to the electronic Patient Visit Report (Discharge Instructions) for additional information. Additional Copies To Mariajose John M.D.
== END 2017-05-27 16:26 | disposition home or self-care (01) ==
LOC: C.EDB 11:00 → C.MED 13:12 → ENRESERV 14:27
PROVIDERS: ADMIT Internal Medicine; ATTEND Family Medicine
DX: G45.4 Transient global amnesia (principal); I10 Essential (primary) hypertension; M19.90 Unspecified osteoarthritis, unspecified site; Z79.82 Long term (current) use of aspirin; Z79.01 Long term (current) use of anticoagulants; Z98.890 Other specified postprocedural states; Z96.642 Presence of left artificial hip joint; Z98.41 Cataract extraction status, right eye; Z98.42 Cataract extraction status, left eye; Z87.891 Personal history of nicotine dependence; Z83.3 Family history of diabetes mellitus; Z82.49 Family history of ischemic heart disease and other diseases of the circulatory system

== ENCOUNTER → 2017-08-18 | Outpatient (CLI) | payer OTHER ==
[~2017-08-18] MED LIST changes: +ACET1TAB84 PO; -CLC/300 PO; -NAPR1TAB9 PO; -POLYSOL OPB
[2017-08-18 13:09] LABS: BASO % 0.2 %; BASO ABS # 0.02 K/uL (0-0.2); EOS % 0.9 %; EOS ABS # 0.07 K/uL (0-0.5); HEMATOCRIT 41.4 % (42-52); HEMOGLOBIN 14.3 g/dL (14.0-18.0); IG# 0.03 K/uL (0.00-0.02); LYMPH % 23.2 %; LYMPH ABS # 1.91 K/uL (1.2-3.4); MEAN CELL VOLUME 91.2 fL (80-100); MEAN CORPUSCULAR HEMOGLOBIN 31.5 pg (25-34); MEAN CORPUSCULAR HGB CONC 34.5 g/dl (32-36); MEAN PLATELET VOLUME 9.2 fL (7.4-10.4); MONO % 8.3 %; MONO ABS # 0.68 K/uL (0.11-0.59); NEUT ABS # 5.51 K/uL (1.4-6.5); PLATELET COUNT 252 K/uL (130-400); RED CELL DISTRIBUTION WIDTH CV 12.6 % (11.5-14.5); RED CELL DISTRIBUTION WIDTH SD 42.4 fL (36.4-46.3); WHITE BLOOD COUNT 8.22 K/uL (4.8-10.8)
[2017-08-18 13:36] LABS: ALBUMIN 3.7 gm/dl (3.4-5.0); ALT/SGPT 22 U/L (12-78); AST/SGOT 25 U/L (15-37); BLOOD UREA NITROGEN 18 mg/dl (7-18); CALCIUM 9.5 mg/dl (8.5-10.1); CARBON DIOXIDE 29 mmol/L (21-32); CREATININE 0.99 mg/dl (0.60-1.40); GLUCOSE 105 mg/dl (70-99); SODIUM 138 mmol/L (136-145)
[2017-08-18 13:38] LABS: ALKALINE PHOSPHATASE 83 U/L (45-117); TOTAL PROTEIN 7.5 gm/dl (6.4-8.2)
== END | disposition home or self-care (01) ==
LOC: C.LABPVFM 09:12
PROVIDERS: ATTEND Family Medicine
DX: I10 Essential (primary) hypertension (principal); D64.9 Anemia, unspecified; R17 Unspecified jaundice

== ENCOUNTER → 2018-02-16 | Outpatient (CLI) | payer OTHER ==
[~2018-02-16] MED LIST changes: -ACET1TAB84 PO
[2018-02-16 13:20] LABS: ALBUMIN 3.6 gm/dl (3.4-5.0); ALKALINE PHOSPHATASE 90 U/L (45-117); ALT/SGPT 19 U/L (12-78); AST/SGOT 23 U/L (15-37); BLOOD UREA NITROGEN 13 mg/dl (7-18); CARBON DIOXIDE 28 mmol/L (21-32); GLUCOSE 93 mg/dl (70-99); POTASSIUM 4.1 mmol/L (3.5-5.1); SODIUM 138 mmol/L (136-145); TOTAL PROTEIN 7.3 gm/dl (6.4-8.2)
== END | disposition home or self-care (01) ==
LOC: C.LABPVFM 08:24
PROVIDERS: ATTEND Family Medicine
DX: R41.3 Other amnesia (principal)

== ENCOUNTER 2018-12-16 19:46 | Inpatient (IN) ==
[2018-12-16 20:21] LABS: Basophils # (auto) 0.01 K/uL (0-0.2); Basophils % (auto) 0.1 %; Eosinophils # (auto) 0.04 K/uL (0-0.5); Eosinophils % (auto) 0.4 %; Hematocrit (blood only) 38.9 % (42-52); Hemoglobin 13.3 g/dL (14.0-18.0); Immature Granulocytes # (auto) 0.02 K/uL (0.00-0.02); Immature Granulocytes % (auto) 0.2 %; Lymphocytes # (auto) 1.04 K/uL (1.2-3.4); Mean Corpuscular Hgb Conc 34.2 g/dL (32-36); Mean Corpuscular Volume 90.3 fL (80-100); Mean Platelet Volume 8.9 fL (7.4-10.4); Monocytes # (auto) 0.54 K/uL (0.11-0.59); Monocytes % (auto) 5.2 %; Neutrophils # (auto) 8.79 K/uL (1.4-6.5); Neutrophils % (auto) 84.1 %; Platelet Count 266 K/uL (130-400); RDW Coefficient of Variation 12.5 % (11.5-14.5); Red Blood Count 4.31 M/uL (4.7-6.1); White Blood Count 10.44 K/uL (4.8-10.8)
[2018-12-16] MEDS ORDERED: ONDANSETRON INJ 2 MG/ML 2 ML VIAL IV STA (20:30)
[2018-12-16] MEDS ORDERED: SODIUM CHLORIDE 0.9% 1000ML 1,000 ML IV STA (20:30)
[2018-12-16] MEDS ORDERED: SODIUM CHLORIDE 0.9% 1000ML 500 ML IV ONE (20:30)
[2018-12-16] MEDS: HYDROmorphone INJ 0.5 MG/0.5 ML SYR IV PRN ×2 (20:34→23:04)
[2018-12-16 20:39] LABS: BUN Creatinine Ratio 17.8 (10-20); Calcium 9.6 mg/dl (8.5-10.1); Creatinine Clr Calc Pharmacy 48.3 ml/min; Est GFR (African American) 68.1; Est GFR (Non-African American) 58.7; Potassium 4.1 mmol/L (3.5-5.1)
[2018-12-16 20:42] LABS: Albumin Globulin Ratio 1.1 (0.9-2); Bilirubin,Total 0.7 mg/dl (0.2-1); Globulin 3.8 gm/dl (2.5-4.0); Total Protein 7.8 gm/dl (6.4-8.2)
--- NOTE | 2018-12-16 21:01 | CT Scan Report ---
CT abd pelvis wo con CLINICAL HISTORY: 83 years-old Male presenting with vomiting, lower abdominal pain since earlier toda y, s/p right colon resection. TECHNIQUE: Multidetector CT of the abdomen and pelvis was performed without the use of intravenous co ntrast. IV contrast: None. One or more dose lowering techniques were used consistent with the princip les of ALARA (as low as reasonably achievable), including automatic exposure control, mA or kV adjust ment to individual patient size, and/or use of iterative reconstruction. COMPARISON: 10/16/2018. CT DOSE (mGy.cm): The estimated cumulative dose is 466.13 mGy.cm. 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 Lung bases: Normal heart size. Coronary artery calcification. Calcified pleural plaques. No pleural e ffusion. Minimal dependent changes likely atelectasis. Solid triangular subpleural 6 mm nodule in the right middle lobe unchanged. Liver: Normal morphology. Normal density. Biliary: No gross biliary ductal dilatation allowing for noncontrast technique. Gallbladder contains gallstones. Mild gallbladder wall thickening and pericholecystic inflammation. Pancreas: Normal noncontrast appearance. Spleen: Normal noncontrast appearance. Adrenal glands: Normal noncontrast appearance. Kidneys and ureters: Normal noncontrast appearance. No nephrolithiasis. No hydronephrosis. Normal ure ters. Bladder: Normal. Pelvic organs: Normal noncontrast appearance. Streak artifact arising from orthopedic hardware degrad es evaluation. Bowel: Limitations in evaluation of the lower rectum due to streak artifact. Diverticulosis of the mi d to upper rectum as well as the sigmoid and descending colon. No wall thickening or pericolonic infl ammatory change. Postsurgical changes of partial right hemicolectomy with a patent ileocolic anastomo sis in the right mid abdomen. No bowel obstruction. No inflammatory change or extraluminal gas at the anastomosis. Peritoneal cavity: No free fluid or intraperitoneal gas. Lymph nodes: No gross lymphadenopathy allowing for noncontrast technique. Vasculature: Atherosclerosis of the normal caliber abdominal aorta. Abdominal wall: Postsurgical changes of the lower abdominal wall may be present. Musculoskeletal: Degenerative changes of the spine. Posterior lumbar fusion hardware. Total left hip arthroplasty. IMPRESSION: 1. Cholelithiasis with gallbladder wall thickening and pericholecystic inflammatory change. Findings highly suspicious for acute calculus cholecystitis. Surgical consultation is warranted. 2. Postsurgical changes of partial right hemicolectomy. No complication or bowel obstruction. 3. Diverticulosis coli. No evidence of diverticulitis. The report will be called/faxed according to standard departmental protocol. Electronically signed by: Denny Pal M.D. 12/16/2018 8:59 PM
--- NOTE | 2018-12-16 22:56 | Ultrasound Report ---
US gallbladder CLINICAL HISTORY: 83 years-old Male presenting with abd ct for acute cholecystitis. TECHNIQUE: Real-time grayscale and limited color Doppler ultrasound imaging of the abdomen limited to the right upper quadrant was performed. COMPARISON: CT from earlier today. FINDINGS: Pancreas: Largely obscured due to overlying bowel gas. Liver: Mildly hyperechogenic parenchyma, although the right hemidiaphragm remains visible, likely ind icating mild steatosis. The liver measures 15.4 cm in maximal sagittal dimension. No sonographic evid ence of hepatic mass. Main portal vein patent with normal directional flow. Biliary: No intrahepatic biliary ductal dilatation. Common bile duct measures up to 4 mm in diameter. Gallbladder: Gallstones with gallbladder sludge, gallbladder distention, and gallbladder wall thicken ing. Right kidney: Normal in appearance without evidence of hydronephrosis. Ascites: None. Other: None. IMPRESSION: 1. Cholelithiasis with findings suspicious for acute calculus cholecystitis as on CT. Surgical consu ltation recommended. 2. Mild hepatic steatosis. Electronically signed by: Denny Pal M.D. 12/16/2018 10:54 PM
[2018-12-16] MEDS ORDERED: cefOXitin 2,000 MG/60 ML BAG IV STA (23:48)
--- NOTE | 2018-12-17 00:31 | Emergency Department Note ---
Entered by Sharita Whyte acting as a scribe for Alli Greene MD ED Provider Note CHIEF COMPLAINT: worsening upper abdominal pain HISTORY OF PRESENT ILLNESS: The patient is a 83 year old M who presents to the Emergency Room with complaints of worsening upper abdominal pain that started earlier this evening. The patient states that he was at a picnic today. He adds that he ate food at the picnic which is when his symptoms started. He rates his current pain as 9 out of 10. He notes that he is currently experiencing back pain and vomiting. No relieving factors noted. He states that he had a colon resection performed [address] Marie. He adds that the surgery was performed due to his history of colon cancer. He notes that he also has a history of hypertension. Pt denies LOC, headache, fevers, chills, diaphoresis, visual changes, neck pain, chest pain, leg pain, breathing difficulties, melena, hematochezia, urinary symptoms, numbness, weakness, lymphadenopathy, rash, or other complaints. REVIEW OF SYSTEMS: See HPI for pertinent positives and negatives. A total of ten systems were reviewed and were otherwise negative. PMHx/PSHx: colon cancer, colon resection, HTN SOCIAL HISTORY: Patient lives at home. PHYSICAL EXAM: GENERAL: Awake, alert, uncomfortable-appearing HENT: Normocephalic, atraumatic. Oropharynx unremarkable. EYES: PERRL. Normal conjunctiva. Sclera non-icteric. NECK: Inspection normal. Non-tender. Supple. No nuchal rigidity. FROM. No masses. RESPIRATORY: Clear to auscultation. No wheezes. No rales. Normal respiratory effort. CARDIAC: Bradycardic rate. Normal rhythm. No murmurs. No rubs. Extremities warm and well perfused. Pulses equal. No JVD. GI: Soft, non-distended. RUQ and epigastric tenderness to palpation. No rebound or guarding. No masses. RECTAL: Deferred. MUSCULOSKELETAL: Atraumatic. Chest examination reveals no tenderness. The back is symmetrical on inspection without obvious abnormality. There is no CVA tenderness to palpation. No joint edema. LOWER EXTREMITIES: Calves are equal size bilaterally and non-tender. No edema. No discoloration. NEURO: Normal sensorium. No sensory or motor deficits noted. SKIN: No rash or jaundice noted. EMERGENCY DEPARTMENT COURSE: 2028: Past medical records reviewed. The patient was evaluated in room C9, and a complete history and physical examination were performed. 0: I reviewed the patient's case with Dr. Hannah, [facility], [place]. 2354: I reviewed the patient's case with Dr. Charlene Oswald, [facility] Hospitalist. She will evaluate the patient for further management. MEDICAL DECISION MAKING: Triage Nursing notes reviewed and agree them. Additional history obtained from the patient's . The patient's history was concerning for abdominal pain. Differential diagnosis: Etiologies such as appendicitis, diverticulitis, PUD, biliary pathology, UTI, pancreatitis, obstruction, mesenteric ischemia, aortic pathology, infections, inflammatory bowel disease, renal colic, complication from recent surgery, as well as others were entertained. Physical examination findings: As above. ER treatment provided: IV Dilaudid times multiple doses IV Zofran IV hydration On reassessment the patient felt better. IV Mefoxin Diagnostics interpreted by me: ECG: Normal without ischemia. The labs revealed an unremarkable CBC and chemistry panel. LFTs and lipase negative. Imaging studies: CT scan performed was concerning for acute cholecystitis. No other pathology noted per radiology. Ultrasound imaging was performed and confirmed. No ductal dilatation noted. Consultation: A consultation was placed with the surgeon on-call, Dr. Hannah. He agreed with the Mefoxin and admission to the hospital. I discussed the case with Dr. Oswald of internal medicine. The patient was evaluated in the ER for further treatment. IMPRESSION: acute cholecystitis PLAN: The patient is being admitted to the hospital. The scribe's documentation has been prepared under my direction and personally reviewed by me in its entirety. I confirm that the note above accurately reflects all work, treatment, procedures, and medical decision making performed by me. Impression & Plan Acute cholecystitis Past Med/Surg History Medical History Colon cancer (Chronic) Hypertension (Chronic) Osteoarthritis (Chronic) Surgical History History of colon resection (Chronic) Social History Preferred Language: French Feels Safe at Home: Yes Smoking Status: Never smoker Results & Data Vital Signs Vital Signs - 24 hr 12/16/18 19:47 12/16/18 20:05 12/16/18 20:18 Temperature 36.5 C Temperature Source Oral Sepsis Recent Fever Within 48 Hours No Sepsis New/Unexplained Change in Mental Status No Sepsis Action Taken by Nursing No Action Required Pulse Rate 55 L 55 L Pulse Rate [Apical] Respiratory Rate 18 27 H Respiratory Depth Blood Pressure 169/73 H 179/83 H Blood Pressure [Left Arm] Blood Pressure Mean 105 115 Blood Pressure Mean [Left Arm] Pulse Oximetry 99 Oxygen Delivery Method Room Air Room Air 12/16/18 20:29 12/16/18 20:40 12/16/18 21:00 Temperature Temperature Source Sepsis Recent Fever Within 48 Hours Sepsis New/Unexplained Change in Mental Status Sepsis Action Taken by Nursing Pulse Rate 58 L 50 L Pulse Rate [Apical] 51 L Respiratory Rate 16 20 15 Respiratory Depth Normal Blood Pressure Blood Pressure [Left Arm] 179/83 H Blood Pressure Mean Blood Pressure Mean [Left Arm] 115 Pulse Oximetry 95 Oxygen Delivery Method Room Air 12/16/18 21:01 12/16/18 22:00 12/16/18 22:01 Temperature Temperature Source Sepsis Recent Fever Within 48 Hours Sepsis New/Unexplained Change in Mental Status Sepsis Action Taken by Nursing Pulse Rate 52 L 46 L 51 L Pulse Rate [Apical] Respiratory Rate 16 16 15 Respiratory Depth Blood Pressure 179/85 H 125/74 Blood Pressure [Left Arm] Blood Pressure Mean 116 91 Blood Pressure Mean [Left Arm] Pulse Oximetry Oxygen Delivery Method Home Medications Current Medication List: was personally reviewed by me Laboratory Data Attestation: I reviewed the patient's lab results. Result diagrams: 12/16/18 20:05 12/16/18 20:05 Lab Results 12/16/18 12/16/18 Range/Units 20:05 20:05 WBC 10.44 (4.8-10.8) K/uL RBC 4.31 L (4.7-6.1) M/uL Hgb 13.3 L (14.0-18.0) g/dL Hct 38.9 L (42-52) % MCV 90.3 (80-100) fL MCH 30.9 (25-34) pg MCHC 34.2 (32-36) g/dL RDW Std Deviation 41.0 (36.4-46.3) fL RDW Coeff of Juan 12.5 (11.5-14.5) % Plt Count 266 (130-400) K/uL MPV 8.9 (7.4-10.4) fL Immature Gran % (Auto) 0.2 % Neut % (Auto) 84.1 % Lymph % (Auto) 10.0 % [place] % (Auto) 5.2 % Eos % (Auto) 0.4 % Baso % (Auto) 0.1 % Immature Gran # (Auto) 0.02 (0.00-0.02) K/uL Neut # (Auto) 8.79 H (1.4-6.5) K/uL Lymph # (Auto) 1.04 L (1.2-3.4) K/uL [place] # (Auto) 0.54 (0.11-0.59) K/uL Eos # (Auto) 0.04 (0-0.5) K/uL Baso # (Auto) 0.01 (0-0.2) K/uL Sodium 140 (136-145) mmol/L Potassium 4.1 (3.5-5.1) mmol/L Chloride 104 (98-107) mmol/L Carbon Dioxide 28 (21-32) mmol/L Anion Gap 8.0 (3-11) BUN 21 H (7-18) mg/dl Creatinine 1.16 (0.6-1.4) mg/dl Est Cr Clr Drug Dosing 48.3 ml/min Est GFR ( Amer) 68.1 Est GFR (Non-Af Amer) 58.7 BUN/Creatinine Ratio 17.8 (10-20) Glucose 129 H (70-99) mg/dl Calcium 9.6 (8.5-10.1) mg/dl Total Bilirubin 0.7 (0.2-1) mg/dl AST 19 (15-37) U/L ALT 19 (12-78) U/L Alkaline Phosphatase 100 (45-117) U/L Total Protein 7.8 (6.4-8.2) gm/dl Albumin 4.0 (3.4-5.0) gm/dl Globulin 3.8 (2.5-4.0) gm/dl Albumin/Globulin Ratio 1.1 (0.9-2) Lipase 192 (73-393) U/L Administered Medications Hydromorphone HCl (Dilaudid) 0.5 mg IV Q15M PRN PRN Reason: Pain Stop: 12/30/18 20:29 Last Admin: 12/16/18 23:04 Dose: 0.5 mg Documented by: [id number] Admin: 12/16/18 20:34 Dose: 0.5 mg Documented by: [id number] Sodium Chloride (Nss 1000ml) 1,000 mls @ 125 mls/hr IV .Q8H STA Stop: 12/17/18 04:29 Last Admin: 12/16/18 20:36 Dose: 125 mls/hr Documented by: [id number] Discontinued Medications Sodium Chloride (Nss 1000ml) 500 mls @ 999 mls/hr IV .Q31M ONE Stop: 12/16/18 21:00 Last Infusion: 12/16/18 21:30 Dose: 0 mls/hr Documented by: [id number] Admin: 12/16/18 20:36 Dose: 999 mls/hr Documented by: [id number] Cefoxitin Sodium (Mefoxin) 2,000 mg in 60 mls @ 100 mls/hr IV NOW STA Stop: 12/17/18 00:23 Last Admin: 12/16/18 23:57 Dose: 100 mls/hr Documented by: [id number] Ondansetron HCl (Zofran) 4 mg IV NOW STA Stop: 12/16/18 20:31 Last Admin: 12/16/18 20:34 Dose: 4 mg Documented by: [id number] Imaging Data Radiologist's Impression: Radiology results as stated below per my review and the radiologist's interpretation: CT abd pelvis wo con CLINICAL HISTORY: 83 years-old Male presenting with vomiting, lower abdominal pain since earlier today, s/p right colon resection. TECHNIQUE: Multidetector CT of the abdomen and pelvis was performed without the use of intravenous contrast. IV contrast: None. One or more dose lowering techniques were used consistent with the principles of ALARA (as low as reasonably achievable), including automatic exposure control, mA or kV adjustment to individual patient size, and/or use of iterative reconstruction. COMPARISON: 10/16/2018. CT DOSE (mGy.cm): The estimated cumulative dose is 466.13 mGy.cm. 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 Lung bases: Normal heart size. Coronary artery calcification. Calcified pleural plaques. No pleural effusion. Minimal dependent changes likely atelectasis. Solid triangular subpleural 6 mm nodule in the right middle lobe unchanged. Liver: Normal morphology. Normal density. Biliary: No gross biliary ductal dilatation allowing for noncontrast technique. Gallbladder contains gallstones. Mild gallbladder wall thickening and pericholecystic inflammation. Pancreas: Normal noncontrast appearance. Spleen: Normal noncontrast appearance. Adrenal glands: Normal noncontrast appearance. Kidneys and ureters: Normal noncontrast appearance. No nephrolithiasis. No hydronephrosis. Normal ureters. Bladder: Normal. Pelvic organs: Normal noncontrast appearance. Streak artifact arising from orthopedic hardware degrades evaluation. Bowel: Limitations in evaluation of the lower rectum due to streak artifact. Diverticulosis of the mid to upper rectum as well as the sigmoid and descending colon. No wall thickening or pericolonic inflammatory change. Postsurgical changes of partial right hemicolectomy with a patent ileocolic anastomosis in the right mid abdomen. No bowel obstruction. No inflammatory change or extraluminal gas at the anastomosis. Peritoneal cavity: No free fluid or intraperitoneal gas. Lymph nodes: No gross lymphadenopathy allowing for noncontrast technique. Vasculature: Atherosclerosis of the normal caliber abdominal aorta. Abdominal wall: Postsurgical changes of the lower abdominal wall may be present. Musculoskeletal: Degenerative changes of the spine. Posterior lumbar fusion hardware. Total left hip arthroplasty. IMPRESSION: 1. Cholelithiasis with gallbladder wall thickening and pericholecystic inflammatory change. Findings highly suspicious for acute calculus cholecystitis. Surgical consultation is warranted. 2. Postsurgical changes of partial right hemicolectomy. No complication or bowel obstruction. 3. Diverticulosis coli. No evidence of diverticulitis. The report will be called/faxed according to standard departmental protocol. Electronically signed by: Denny Pal M.D. 12/16/2018 8:59 PM US gallbladder CLINICAL HISTORY: 83 years-old Male presenting with abd ct for acute cholecystitis. TECHNIQUE: Real-time grayscale and limited color Doppler ultrasound imaging of the abdomen limited to the right upper quadrant was performed. COMPARISON: CT from earlier today. FINDINGS: Pancreas: Largely obscured due to overlying bowel gas. Liver: Mildly hyperechogenic parenchyma, although the right hemidiaphragm remains visible, likely indicating mild steatosis. The liver measures 15.4 cm in maximal sagittal dimension. No sonographic evidence of hepatic mass. Main portal vein patent with normal directional flow. Biliary: No intrahepatic biliary ductal dilatation. Common bile duct measures up to 4 mm in diameter. Gallbladder: Gallstones with gallbladder sludge, gallbladder distention, and gallbladder wall thickening. Right kidney: Normal in appearance without evidence of hydronephrosis. Ascites: None. Other: None. IMPRESSION: 1. Cholelithiasis with findings suspicious for acute calculus cholecystitis as on CT. Surgical consultation recommended. 2. Mild hepatic steatosis. Electronically signed by: Denny Pal M.D. 12/16/2018 10:54 PM ECG Data Attestation: I personally reviewed and interpreted this ECG as follows: Indication: abdominal pain Rate (beats per minute): 51 Rhythm: sinus bradycardia Findings: + Q waves (septal); no PAC, no PVC, no ST depression and no ST elevation Blood Pressure Blood Pressure Findings: Normal blood pressure Blood Pressure Disposition: did not require urgent referral Discharge Plan Visit Data Chief Complaint: Abdominal Pain Stated Complaint: THROWING UP ED Provider: Alli Greene Discharge Problem: Acute cholecystitis Patient Disposition: Admitted As Inpatient Forms Stand Alone Forms: My [facility] Prescriptions Prescriptions: No Action clindamycin HCl [Cleocin HCl] 300 mg capsule 600 mg PO UD RF: 0 aspirin [Aspir-81] 81 mg Tablet,Delayed Release (Dr/Ec) 81 mg PO DAILY RF: 0 calcium carbonate [Calcium 600] 600 mg calcium (1,500 mg) Tablet 600 mg PO BID RF: 0 tamsulosin [Flomax] 0.4 mg capsule 0.4 mg PO DAILY RF: 0 Refresh Tears 0.5 % Drops 1 drp OPHTHALMIC (EYE) BID PRN (Reason: Dry Eyes) RF: 0 lisinopril-hydrochlorothiazide [Zestoretic] 10-12.5 mg tablet 0.5 tab PO DAILY RF: 0 Men's Multivitamin 400-20-300 mcg Tablet 1 tab PO DAILY RF: 0 Referrals Referrals: Mariajose John MD [Primary Care Provider] - The scribe's documentation has been prepared under my direction and personally reviewed by me in its entirety. I confirm that the note above accurately reflects all work, treatment, procedures, and medical decision making performed by me.
--- NOTE | 2018-12-17 01:01 | History & Physical Report ---
Date of Service December 17, 2018 Assessment & Plan (1) Acute cholecystitis: 83yo M PMH colon cancer, HTN, BPH admitted 12/17/18 for acute cholecystitis Acute cholecystitis -NPO -Morphine for pain -Surgery consulted, appreciate recs -NSS@125 -Started on cefoxitin -Monitor repeat AM labs HTN -lisinopril/HCTZ on hold for possible surgery -Hold ASA BPH -Hold home meds H/O colon cancer/colon resection -stable, monitor Code: full Dispo: med/surg DVTP: holding ASA, +SCDs (2) History of colon resection: (3) Colon cancer: (4) Hypertension: (5) BPH (benign prostatic hyperplasia): History of Present Illness Chief Complaint: Abdominal pain Primary Care Provider: Mariajose John MD Patient is a pleasant 83yo M PMH colon cancer s/p R colectomy, HTN, BPH, who presents with vague lower abdominal pain. He notes earlier in the day he was at a graduation alliance party for his granddaughter, eating pork/bbq, and while eating started having severe abdominal pain and associated vomiting. Patient had R partial pablo-colectomy performed by Dr Marie in [place] on 11/06/18 due to colon cancer and notes things had been doing well. In the ER, patient's vital signs were stable, he had normal labwork including CBC, CMP, lipase. A CT abdo was performed which revealed post-surgical findings of pablo-colectomy as well as cholelithiasis with gallbladder wall thickening/pericholecystic fluid. An accompanying GBUS was performed which confirmed cholelithiasis with findings suspicious for acute calculus cholecystitis. General surgery was consulted who recommended medical admission and will patient be assessed in the AM. He was started on cefoxitin, IVF, and has pain control prn. Allergies Allergy/AdvReac Type Severity Reaction Status Date / Time adhesive Allergy Mild SKIN Verified 01/11/17 17:50 REDNESS Home Medications Home Medications Medication Instructions Recorded Confirmed Type aspirin [Aspir-81] 81 mg PO DAILY 12/16/18 12/16/18 History calcium carbonate [Calcium 600] 600 mg PO BID 12/16/18 12/16/18 History carboxymethylcellulose sodium 1 drp OPHTHALMIC (EYE) BID PRN 12/16/18 12/16/18 History [Refresh Tears] clindamycin HCl [Cleocin HCl] 600 mg PO UD 12/16/18 12/16/18 History lisinopril-hydrochlorothiazide 0.5 tab PO DAILY 12/16/18 12/16/18 History [Zestoretic] hcbgfkmq-nep-knwek-vit K-lycop 1 tab PO DAILY 12/16/18 12/16/18 History [Men's Multivitamin] tamsulosin [Flomax] 0.4 mg PO DAILY 12/16/18 12/16/18 History Past Med/Surg History Medical History Colon cancer (Chronic) Hypertension (Chronic) Osteoarthritis (Chronic) Surgical History History of colon resection (Chronic) Social History Preferred Language: Polish Communication Ability: Effective [employer] Required: No Beliefs That Will Affect Care: None Current Living Situation: Spouse Other Information That Helps Us Care for You: No Feels Safe at Home: Yes Safety Concerns: Feels Safe At This Time Smoking Status: Former smoker Tobacco Type: pipe and cigars Do You Dip or Chew Tobacco: No Smoking End Date: 2006 Second Hand Exposure: No Hx Alcohol Use: No Hx Substance Use: No Review of Systems Review of Systems: All systems reviewed & are unremarkable except as noted in HPI & below Constitutional: + chills and + body aches; no fever Respiratory: no dyspnea and no pain on inspiration Cardiovascular: no chest pain and no radiating jaw, neck or arm pain Gastrointestinal: + abdominal pain and + nausea; no vomiting and no diarrhea/loose stools Genitourinary: + urinary hesitancy, + post-void dribbling and + nocturia Musculoskeletal: + joint pain Physical Exam Constitutional: WD/WN, vitals as above ENMT: external ear and nose normal, oropharynx normal Neck: normal visual inspection Respiratory: normal respiratory effort, lungs clear to auscultation Cardiovascular: Rate/Rhythm: regular rate and regular rhythm Extremities: + pedal edema (trace) Gastrointestinal (Abdomen): Inspection/Auscultation: + abdomen distended, normal bowel sounds and + abdominal surgical scar Percussion/Palpation: + abdomen tender (minimal lower abdominal tenderness) and abdomen soft; no guarding Musculoskeletal: no cyanosis or clubbing, extremities motor strength 5/5 Skin: no rashes, warm and dry Neurologic: PERRL, EOMI, accommodation nl, no face palsy, no dysarthria Psychiatric: A+Ox3, euthymic affect Results & Data Vital Signs (Past 12 Hours) Vital Signs Temp Pulse Pulse Resp BP BP Pulse Ox 12/17/18 00:00 60 15 169/76 H 97 12/16/18 23:22 58 L 19 154/89 H 95 12/16/18 23:21 62 18 93 12/16/18 22:02 53 L 15 12/16/18 22:01 51 L 15 125/74 12/16/18 22:00 46 L 16 12/16/18 21:01 52 L 16 179/85 H 12/16/18 21:00 50 L 15 12/16/18 20:40 51 L 20 179/83 H 95 12/16/18 20:29 58 L 16 12/16/18 20:18 55 L 27 H 179/83 H 12/16/18 19:47 36.5 C 55 L 18 169/73 H 99 Laboratory Results 12/16/18 12/16/18 Range/Units 20:05 20:05 WBC 10.44 (4.8-10.8) K/uL RBC 4.31 L (4.7-6.1) M/uL Hgb 13.3 L (14.0-18.0) g/dL Hct 38.9 L (42-52) % MCV 90.3 (80-100) fL MCH 30.9 (25-34) pg MCHC 34.2 (32-36) g/dL RDW Std Deviation 41.0 (36.4-46.3) fL RDW Coeff of Juan 12.5 (11.5-14.5) % Plt Count 266 (130-400) K/uL MPV 8.9 (7.4-10.4) fL Immature Gran % (Auto) 0.2 % Neut % (Auto) 84.1 % Lymph % (Auto) 10.0 % [place] % (Auto) 5.2 % Eos % (Auto) 0.4 % Baso % (Auto) 0.1 % Immature Gran # (Auto) 0.02 (0.00-0.02) K/uL Neut # (Auto) 8.79 H (1.4-6.5) K/uL Lymph # (Auto) 1.04 L (1.2-3.4) K/uL [place] # (Auto) 0.54 (0.11-0.59) K/uL Eos # (Auto) 0.04 (0-0.5) K/uL Baso # (Auto) 0.01 (0-0.2) K/uL Sodium 140 (136-145) mmol/L Potassium 4.1 (3.5-5.1) mmol/L Chloride 104 (98-107) mmol/L Carbon Dioxide 28 (21-32) mmol/L Anion Gap 8.0 (3-11) BUN 21 H (7-18) mg/dl Creatinine 1.16 (0.6-1.4) mg/dl Est Cr Clr Drug Dosing 48.3 ml/min Est GFR ( Amer) 68.1 Est GFR (Non-Af Amer) 58.7 BUN/Creatinine Ratio 17.8 (10-20) Glucose 129 H (70-99) mg/dl Calcium 9.6 (8.5-10.1) mg/dl Total Bilirubin 0.7 (0.2-1) mg/dl AST 19 (15-37) U/L ALT 19 (12-78) U/L Alkaline Phosphatase 100 (45-117) U/L Total Protein 7.8 (6.4-8.2) gm/dl Albumin 4.0 (3.4-5.0) gm/dl Globulin 3.8 (2.5-4.0) gm/dl Albumin/Globulin Ratio 1.1 (0.9-2) Lipase 192 (73-393) U/L Diagnostic Findings CT abd pelvis wo con CLINICAL HISTORY: 83 years-old Male presenting with vomiting, lower abdominal pain since earlier today, s/p right colon resection. TECHNIQUE: Multidetector CT of the abdomen and pelvis was performed without the use of intravenous contrast. IV contrast: None. One or more dose lowering techniques were used consistent with the principles of ALARA (as low as reasonably achievable), including automatic exposure control, mA or kV adjustment to individual patient size, and/or use of iterative reconstruction. COMPARISON: 10/16/2018. CT DOSE (mGy.cm): The estimated cumulative dose is 466.13 mGy.cm. FINDINGS: Medicaid Analyst topogram: Orthopedic hardware. Lung bases: Normal heart size. Coronary artery calcification. Calcified pleural plaques. No pleural effusion. Minimal dependent changes likely atelectasis. Solid triangular subpleural 6 mm nodule in the right middle lobe unchanged. Liver: Normal morphology. Normal density. Biliary: No gross biliary ductal dilatation allowing for noncontrast technique. Gallbladder contains gallstones. Mild gallbladder wall thickening and pericholecystic inflammation. Pancreas: Normal noncontrast appearance. Spleen: Normal noncontrast appearance. Adrenal glands: Normal noncontrast appearance. Kidneys and ureters: Normal noncontrast appearance. No nephrolithiasis. No hydronephrosis. Normal ureters. Bladder: Normal. Pelvic organs: Normal noncontrast appearance. Streak artifact arising from orthopedic hardware degrades evaluation. Bowel: Limitations in evaluation of the lower rectum due to streak artifact. Diverticulosis of the mid to upper rectum as well as the sigmoid and descending colon. No wall thickening or pericolonic inflammatory change. Postsurgical changes of partial right hemicolectomy with a patent ileocolic anastomosis in the right mid abdomen. No bowel obstruction. No inflammatory change or extral uminal gas at the anastomosis. Peritoneal cavity: No free fluid or intraperitoneal gas. Lymph nodes: No gross lymphadenopathy allowing for noncontrast technique. Vasculature: Atherosclerosis of the normal caliber abdominal aorta. Abdominal wall: Postsurgical changes of the lower abdominal wall may be present. Musculoskeletal: Degenerative changes of the spine. Posterior lumbar fusion hardware. Total left hip arthroplasty. IMPRESSION: 1. Cholelithiasis with gallbladder wall thickening and pericholecystic inflammatory change. Findings highly suspicious for acute calculus cholecystitis. Surgical consultation is warranted. 2. Postsurgical changes of partial right hemicolectomy. No complication or bowel obstruction. 3. Diverticulosis coli. No evidence of diverticulitis. The report will be called/faxed according to standard departmental protocol. US gallbladder CLINICAL HISTORY: 83 years-old Male presenting with abd ct for acute cholecystitis. TECHNIQUE: Real-time grayscale and limited color Doppler ultrasound imaging of the abdomen limited to the right upper quadrant was performed. COMPARISON: CT from earlier today. FINDINGS: Pancreas: Largely obscured due to overlying bowel gas. Liver: Mildly hyperechogenic parenchyma, although the right hemidiaphragm remains visible, likely indicating mild steatosis. The liver measures 15.4 cm in maximal sagittal dimension. No sonographic evidence of hepatic mass. Main portal vein patent with normal directional flow. Biliary: No intrahepatic biliary ductal dilatation. Common bile duct measures up to 4 mm in diameter. Gallbladder: Gallstones with gallbladder sludge, gallbladder distention, and gallbladder wall thickening. Right kidney: Normal in appearance without evidence of hydronephrosis. Ascites: None. Other: None. IMPRESSION: 1. Cholelithiasis with findings suspicious for acute calculus cholecystitis as on CT. Surgical consultation recommended. 2. Mild hepatic steatosis. Electronically signed by: Denny Pal M.D. 12/16/2018 10:54 PM Code Status & VTE Plan Code Status Full Supervising Physician Co-Signing Physician Notes Patient seen and examined, chart reviewed, case discussed with Dr. Resendiz and I agree with her assessment and plan as documented above. Briefly, patient is an 83yo C male presenting with acute cholecystitis. Lower abdominal pain, nausea and vomiting that developed after eating pork at a [facility]. Imaging confirmed presence of acute cholecystitis On exam he is afebrile, hemodynamically stable, nontoxic in appearance, restless Skin - no jaundice HEENT - NC/AT, PERRL, MMM, neck supple Heart - +S1/S2, regular, no m/r/g Lungs - CTA Abd - +BS, soft, NT/ND Ext - no edema Labs and images reviewed Assessment/Plan: -Admit to medical floor, consult General Surgery, appreciate management -NPO, control of pain and nausea -Cefoxitin -Remainder of plan as above Resident Activity Tracking Resident Involvement: Resident Care Provided Care Provided: Adult Hospital Medicine
[2018-12-17] MEDS ORDERED: POLYETHYLENE (MIRALAX) 17 GM PACK PO PRN (01:57)
[2018-12-17] MEDS ORDERED: MAGNESIUM HYDROXIDE SUSP 30 ML UDC PO PRN (01:57)
[2018-12-17] MEDS ORDERED: ACETAMINOPHEN 325 MG TAB PO PRN (01:57)
[2018-12-17] MEDS ORDERED: ALUMINUM/MAGNESIUM SUSP 30 ML UDC PO PRN (01:57)
[2018-12-17] MEDS ORDERED: ONDANSETRON INJ 2 MG/ML 2 ML VIAL IV PRN ×3 (01:57→15:42)
[2018-12-17] MEDS: SODIUM CHLORIDE 0.9% 1000ML 1,000 ML IV SCH ×3 (02:15→16:52)
[2018-12-17] MEDS: MoRPHine SULFATE 2 MG/ML CARP IV PRN ×3 (02:15→08:00)
[2018-12-17 05:06] LABS: Appearance Urine Clear (Clear); Bacteria Urine Automated Negative (Negative); Bilirubin Urine Negative (Negative); Blood Urine Negative (Negative); Color Urine Dark Yellow; Epithelial Cell Urine Auto 20-30 /lpf (0-5); Glucose Urine UA Negative (Negative); Ketones Urine 1+ (Negative); Leukocyte Esterase Urine Negative (Negative); Nitrite Urine Negative (Negative); Protein Urine Trace (Negative); RBC Urine Automated 0-4 /hpf (0-4); Urobilinogen Urine Negative (Negative); pH Urine 6.5 (4.5-7.5)
[2018-12-17 06:49] LABS: Basophils # (auto) 0.01 K/uL (0-0.2); Basophils % (auto) 0.1 %; Hematocrit (blood only) 36.8 % (42-52); Hemoglobin 12.8 g/dL (14.0-18.0); Immature Granulocytes # (auto) 0.04 K/uL (0.00-0.02); Immature Granulocytes % (auto) 0.3 %; Lymphocytes # (auto) 0.57 K/uL (1.2-3.4); Mean Corpuscular Hgb Conc 34.8 g/dL (32-36); Mean Corpuscular Volume 91.1 fL (80-100); Mean Platelet Volume 8.6 fL (7.4-10.4); Monocytes # (auto) 0.87 K/uL (0.11-0.59); Monocytes % (auto) 6.1 %; Neutrophils # (auto) 12.66 K/uL (1.4-6.5); Neutrophils % (auto) 89.5 %; Platelet Count 226 K/uL (130-400); RDW Coefficient of Variation 12.6 % (11.5-14.5); RDW Standard Deviation 42.2 fL (36.4-46.3); Red Blood Count 4.04 M/uL (4.7-6.1); White Blood Count 14.15 K/uL (4.8-10.8)
[2018-12-17 07:14] LABS: Albumin Level 3.3 gm/dl (3.4-5.0); BUN Creatinine Ratio 15.9 (10-20); Calcium 8.5 mg/dl (8.5-10.1); Creatinine Clr Calc Pharmacy 46.3 ml/min; Est GFR (African American) 64.7; Est GFR (Non-African American) 55.8; Potassium 4.1 mmol/L (3.5-5.1)
[2018-12-17 07:17] LABS: Bilirubin,Total 1.2 mg/dl (0.2-1); Globulin 3.4 gm/dl (2.5-4.0); Total Protein 6.7 gm/dl (6.4-8.2)
--- NOTE | 2018-12-17 08:28 | Family Medicine Progress Note ---
Date of Service December 17, 2018 Assessment & Plan (1) Acute cholecystitis: 83yo s/p hemicolectomy for colon cancer recently, now with acute cholecystitis. Pt seen this AM. States the pain is currently mild but does not currently have N/V. ROS: Denied FORD, SOB, chest pain, diarrhea/constipation. PE: afebrile, hypertensive and bradycardic. On RA General: Alert, oriented. Resting in bed. HEENT: NC/AT, noted by Dr. Caldwell to have blackish discoloration to his tongue. Chest: Nontender to palpation. CV: RRR, Normal s1, s2. Resp: Breath sounds clear bilaterally, no increased effort of breathing. Abdomen: Soft, nontender except mildly in RUQ, nondistended. No guarding, no rebound tenderness. +Zepeda sign this AM. Extremities: No edema in extremities bilaterally. 83yo with recent hemicolectomy for colon cancer, now with acute cholecystitis. -Surgery with Dr. Hannah -until surgery, continue npo status, fluids, abx, morphine. -will continue to monitor pt postop. -"black tongue" to be addressed then Results & Data Vital Signs (Past 12 Hours) Vital Signs Temp Pulse Pulse Pulse Resp BP BP 12/17/18 07:06 36.9 C 45 L 18 163/76 H 12/17/18 02:26 37.0 C 75 18 167/78 H 12/17/18 01:45 53 L 18 151/85 H 12/17/18 01:01 56 L 18 161/78 H 12/17/18 01:00 50 L 15 12/17/18 00:30 58 L 16 12/17/18 00:00 60 15 169/76 H 12/16/18 23:22 58 L 19 154/89 H 12/16/18 23:21 62 18 12/16/18 22:02 53 L 15 12/16/18 22:01 51 L 15 125/74 12/16/18 22:00 46 L 16 12/16/18 21:01 52 L 16 179/85 H 12/16/18 21:00 50 L 15 12/16/18 20:40 51 L 20 179/83 H 12/16/18 20:29 58 L 16 Pulse Ox 12/17/18 07:06 93 12/17/18 02:26 94 12/17/18 01:45 95 12/17/18 01:01 12/17/18 01:00 12/17/18 00:30 96 12/17/18 00:00 97 12/16/18 23:22 95 12/16/18 23:21 93 12/16/18 22:02 12/16/18 22:01 12/16/18 22:00 12/16/18 21:01 12/16/18 21:00 12/16/18 20:40 95 12/16/18 20:29 Laboratory Results Laboratory Results - last 24 hr 12/16/18 12/16/18 12/17/18 20:05 20:05 04:55 WBC 10.44 RBC 4.31 L Hgb 13.3 L Hct 38.9 L MCV 90.3 MCH 30.9 MCHC 34.2 RDW Std Deviation 41.0 RDW Coeff of Juan 12.5 Plt Count 266 MPV 8.9 Immature Gran % (Auto) 0.2 Neut % (Auto) 84.1 Lymph % (Auto) 10.0 [place] % (Auto) 5.2 Eos % (Auto) 0.4 Baso % (Auto) 0.1 Immature Gran # (Auto) 0.02 Neut # (Auto) 8.79 H Lymph # (Auto) 1.04 L [place] # (Auto) 0.54 Eos # (Auto) 0.04 Baso # (Auto) 0.01 Sodium 140 Potassium 4.1 Chloride 104 Carbon Dioxide 28 Anion Gap 8.0 BUN 21 H Creatinine 1.16 Est Cr Clr Drug Dosing 48.3 Est GFR ( Amer) 68.1 Est GFR (Non-Af Amer) 58.7 BUN/Creatinine Ratio 17.8 Glucose 129 H Calcium 9.6 Total Bilirubin 0.7 AST 19 ALT 19 Alkaline Phosphatase 100 Total Protein 7.8 Albumin 4.0 Globulin 3.8 Albumin/Globulin Ratio 1.1 Lipase 192 Urine Color Dark Yellow Urine Appearance Clear Urine pH 6.5 Ur Specific [place] 1.030 Urine Protein Trace H Urine Glucose (UA) Negative Urine Ketones 1+ H Urine Blood Negative Urine Nitrite Negative Urine Bilirubin Negative Urine Urobilinogen Negative Ur Leukocyte Esterase Negative Urine WBC (Auto) 1-5 Urine RBC (Auto) 0-4 U Hyaline Cast (Auto) 1-5 U Epithel Cells (Auto) 20-30 H Urine Bacteria (Auto) Negative 06/09/19 06/09/19 06:22 06:22 WBC 14.15 H RBC 4.04 L Hgb 12.8 L Hct 36.8 L MCV 91.1 MCH 31.7 MCHC 34.8 RDW Std Deviation 42.2 RDW Coeff of Juan 12.6 Plt Count 226 MPV 8.6 Immature Gran % (Auto) 0.3 Neut % (Auto) 89.5 Lymph % (Auto) 4.0 [place] % (Auto) 6.1 Eos % (Auto) 0.0 Baso % (Auto) 0.1 Immature Gran # (Auto) 0.04 H Neut # (Auto) 12.66 H Lymph # (Auto) 0.57 L [place] # (Auto) 0.87 H Eos # (Auto) 0.00 Baso # (Auto) 0.01 Sodium 139 Potassium 4.1 Chloride 107 Carbon Dioxide 28 Anion Gap 4.0 BUN 19 H Creatinine 1.21 Est Cr Clr Drug Dosing 46.3 Est GFR ( Amer) 64.7 Est GFR (Non-Af Amer) 55.8 BUN/Creatinine Ratio 15.9 Glucose 137 H Calcium 8.5 Total Bilirubin 1.2 H D AST 18 ALT 17 Alkaline Phosphatase 82 Total Protein 6.7 Albumin 3.3 L Globulin 3.4 Albumin/Globulin Ratio 1.0 Lipase Urine Color Urine Appearance Urine pH Ur Specific [place] Urine Protein Urine Glucose (UA) Urine Ketones Urine Blood Urine Nitrite Urine Bilirubin Urine Urobilinogen Ur Leukocyte Esterase Urine WBC (Auto) Urine RBC (Auto) U Hyaline Cast (Auto) U Epithel Cells (Auto) Urine Bacteria (Auto) Medications Administered Home Medications aspirin [Aspir-81] 81 mg PO DAILY 12/16/18 [History Confirmed 12/16/18] calcium carbonate [Calcium 600] 600 mg PO BID 12/16/18 [History Confirmed 12/16/18] carboxymethylcellulose sodium [Refresh Tears] 1 drp OPHTHALMIC (EYE) BID PRN 12/16/18 [History Confirmed 12/16/18] clindamycin HCl [Cleocin HCl] 600 mg PO UD 12/16/18 [History Confirmed 12/16/18] lisinopril-hydrochlorothiazide [Zestoretic] 0.5 tab PO DAILY 12/16/18 [History Confirmed 12/16/18] xgyyzlln-uhp-sjmxn-vit K-lycop [Men's Multivitamin] 1 tab PO DAILY 12/16/18 [History Confirmed 12/16/18] tamsulosin [Flomax] 0.4 mg PO DAILY 12/16/18 [History Confirmed 12/16/18] Active Medications Acetaminophen (Tylenol) 650 mg PO Q4H PRN PRN Reason: pain/fever Stop: 01/16/19 01:56 Al Hydrox/Mg Hydrox/Simethicone (Maalox) 30 ml PO Q6H PRN PRN Reason: Dyspepsia Stop: 01/16/19 01:56 Sodium Chloride (Nss 1000ml) 1,000 mls @ 125 mls/hr IV .Q8H GRZEGORZ Stop: 01/16/19 01:56 Last Admin: 12/17/18 02:15 Dose: 125 mls/hr Documented by: Cefoxitin Sodium 1,000 mg/ (Dextrose) 60 mls @ 100 mls/hr IV Q6H GRZEGORZ Stop: 12/27/18 05:59 Last Infusion: 12/17/18 06:15 Dose: Infused Documented by: Magnesium Hydroxide (Milk Of Magnesia) 30 ml PO Q6H PRN PRN Reason: Constipation Stop: 01/16/19 01:56 Morphine Sulfate (Morphine Sulfate) 2 mg IV Q2H PRN PRN Reason: Pain Stop: 12/31/18 01:56 Last Admin: 12/17/18 08:00 Dose: 2 mg Documented by: Ondansetron HCl (Zofran) 4 mg IV Q6H PRN PRN Reason: Nausea Stop: 01/16/19 01:56 Polyethylene Glycol (Miralax Powder Packet) 17 gm PO DAILY PRN PRN Reason: Constipation Stop: 01/16/19 01:56
--- NOTE | 2018-12-17 08:52 | Anesthesiology Consultation ---
Date of Service December 17, 2018 Assessment & Plan (1) Encounter for pre-operative examination: Chart Review Chart Review: Acceptable Risk for Surgery and Patient NOT seen in Pre Admission Testing Consults Requested none ASA ASA3 Proposed Anesthesia Anesthesia Type: General Risk / Benefits Reviewed With: PT / POA / Parent / Guardian, Accepts Plan and Informed Consent Obtained History Surgery Operation Date: 12/17/18 11:30 Proposed Procedures p Laparoscopic Cholecystectomy - Vinod Hannah MD Height/Weight Height: 5 ft 8 in Weight: 78.2 kg Allergies Allergy/AdvReac Type Severity Reaction Status Date / Time adhesive Allergy Mild SKIN Verified 01/11/17 17:50 REDNESS Medications Home Medications Medication Instructions Recorded Confirmed Last Taken aspirin [Aspir-81] 81 mg PO DAILY 12/16/18 12/16/18 Unknown calcium carbonate [Calcium 600] 600 mg PO BID 12/16/18 12/16/18 12/16/18 07:00 carboxymethylcellulose sodium 1 drp OPHTHALMIC (EYE) BID PRN 12/16/18 12/16/18 Unknown [Refresh Tears] clindamycin HCl [Cleocin HCl] 600 mg PO UD 12/16/18 12/16/18 Unknown lisinopril-hydrochlorothiazide 0.5 tab PO DAILY 12/16/18 12/16/18 12/16/18 07:00 [Zestoretic] ouhwgvrf-jql-lndii-vit K-lycop 1 tab PO DAILY 12/16/18 12/16/18 12/16/18 07:00 [Men's Multivitamin] tamsulosin [Flomax] 0.4 mg PO DAILY 12/16/18 12/16/18 12/16/18 07:00 Active Medications Generic Name Dose Route Start Last Admin Trade Name Freq PRN Reason Stop Dose Admin Sodium Chloride 1,000 mls @ 125 mls/hr 12/17/18 01:57 12/17/18 11:23 Nss 1000ml IV 01/16/19 01:56 0 mls/hr .Q8H GRZEGORZ Infusion Cefoxitin Sodium 1,000 mg/ 60 mls @ 100 mls/hr 12/17/18 06:00 12/17/18 06:15 Dextrose IV 12/27/18 05:59 Infused Q6H GRZEGORZ Infusion Morphine Sulfate 2 mg 12/17/18 01:57 12/17/18 08:00 Morphine Sulfate IV 12/31/18 01:56 2 mg Q2H PRN Administration Pain NPO Date Last Intake of Fluids: 12/16/18 Time Last Intake of Fluids: 13:00 Date Last Intake of Solids: 12/16/18 Time Last Intake of Solids: 13:00 Past Medical History Medical History BPH (benign prostatic hyperplasia) Acute cholecystitis (Acute) Colon cancer (Chronic) Hypertension (Chronic) Osteoarthritis (Chronic) TIA (transient ischemic attack) Pt denies BPH (benign prostatic hyperplasia) Exercise / Class Metabolic Activity III < 4 Walking/Shop/Light housework Past Surgical History Surgical History History of colon resection (Chronic) S/P TKR (total knee replacement) Right X 2 S/P arthroscopy of shoulder Left S/P cataract extraction Bilateral S/P hip replacement Left Past Anesthesia History No Hx of Anesthesia Complications and No Family Hx of Anesthesia Complications History of PONV No Hx of PONV and No Hx of Motion Sickness Social History Smoking Status: Former smoker tobacco type: pipe and cigars Do You Dip or Chew Tobacco: No Smoking End Date: 2006 Hx Alcohol Use: No Hx Substance Use: No Review of Systems positive for n/v today Physical Exam Vital Signs Last Vital Signs Temp 36.9 C 12/17/18 07:06 Pulse 45 L 12/17/18 07:06 Resp 18 12/17/18 07:06 BP 163/76 H 12/17/18 07:06 Pulse Ox 93 12/17/18 07:06 Constitutional not obese ENMT Mouth: + edentulous (Upper); no TMJ abnormality and oral opening not small Thyromental Distance: > or= 3.5 Finger Breadths Mallampati Class: II Neck normal visual inspection and + facial hair; neck extension not limited Respiratory normal respiratory effort Auscultation: lungs clear to auscultation bilaterally Cardiovascular Rate/Rhythm: regular rate and regular rhythm Heart Sounds: no murmur Vessels: no carotid bruit Neurologic moves all extremities Motor/Sensory: no sensory deficit Psychiatric Orientation: alert and oriented x 3 Testing Laboratory Results 12/17/18 06:22 12/17/18 06:22 12/17/18 04:55 Urine Color Dark Yellow Urine Appearance Clear Urine pH 6.5 Ur Specific [place] 1.030 Urine Protein Trace H Urine Glucose (UA) Negative Urine Ketones 1+ H Urine Nitrite Negative Ur Leukocyte Esterase Negative Urine WBC (Auto) 1-5 Urine RBC (Auto) 0-4 U Hyaline Cast (Auto) 1-5 U Epithel Cells (Auto) 20-30 H Urine Bacteria (Auto) Negative Electrocardiogram Date: 12/16/18 Findings: + SB @ (51) Sinus bradycardia Septal infarct , age undetermined, When compared with ECG of 26-MAY-2017 11:18, Septal infarct is now Present
--- NOTE | 2018-12-17 08:53 | Surgery Consultation ---
Date of Consultation December 17, 2018 Assessment & Plan (1) Acute cholecystitis: This patient has right upper quadrant pain with evidence of Aury lithiasis and cholecystitis radiologically. His white count increased this morning. He continues to have pain and is tender. I have explained to him that I would recommend a laparoscopic cholecystectomy. He understands that it may need to be converted to an open procedure and that the likelihood increases because of his recent colon resection. I explained to him both of the procedures and the possible complications associated with them. I answered his questions. He has signed a consent form. Present on Admission?: Yes History of Present Illness Reason for Consultation: Cholecystitis Requesting Physician: Breanna Caldwell MD Attending Physician: Breanna Caldwell MD History of Present Illness I have been asked by Dr. Caldwell to see this 83-year-old male who presented to the emergency room last night with a complaint of pain centered in the upper abdomen but especially in the right subcostal region. He had been at his granddaughter's graduation republican and had eaten and then developed the discomfort yesterday afternoon. The discomfort severity escalated such that it became quite sharp. He developed nausea and had 3 episodes of vomiting without hematemesis. He is had some similar pain periodically in the past but did not identify a fatty food intolerance. This was the most severe episode. The others were all self-limited. The pain does not radiate into the lower abdomen or in the. He underwent a laparoscopic right hemicolectomy for colon cancer about 6 weeks ago at [facility]. His bowels have been moving with formed stool and without melena or hematochezia. He denies fever. At the present time he continues to have discomfort. It is relieved by the analgesics for short period of time. He has no dysuria or hematuria. Allergies Allergy/AdvReac Type Severity Reaction Status Date / Time adhesive Allergy Mild SKIN Verified 01/11/17 17:50 REDNESS Home Medications Home Medications Medication Instructions Recorded Confirmed Type aspirin [Aspir-81] 81 mg PO DAILY 12/16/18 12/16/18 History calcium carbonate [Calcium 600] 600 mg PO BID 12/16/18 12/16/18 History carboxymethylcellulose sodium 1 drp OPHTHALMIC (EYE) BID PRN 12/16/18 12/16/18 History [Refresh Tears] clindamycin HCl [Cleocin HCl] 600 mg PO UD 12/16/18 12/16/18 History lisinopril-hydrochlorothiazide 0.5 tab PO DAILY 12/16/18 12/16/18 History [Zestoretic] nypiajmy-akv-oisyn-vit K-lycop 1 tab PO DAILY 12/16/18 12/16/18 History [Men's Multivitamin] tamsulosin [Flomax] 0.4 mg PO DAILY 12/16/18 12/16/18 History Patient History Medical History BPH (benign prostatic hyperplasia) Acute cholecystitis (Acute) Colon cancer (Chronic) Hypertension (Chronic) Osteoarthritis (Chronic) TIA (transient ischemic attack) BPH (benign prostatic hyperplasia) Surgical History History of colon resection (Chronic) S/P TKR (total knee replacement) Right X 2 S/P arthroscopy of shoulder Left S/P cataract extraction Bilateral S/P hip replacement Left Social History Preferred Language: American Communication Ability: Effective Information Services Manager Required: No Beliefs That Will Affect Care: None Current Living Situation: Spouse Other Information That Helps Us Care for You: No Feels Safe at Home: Yes Safety Concerns: Feels Safe At This Time Smoking Status: Former smoker Tobacco Type: pipe and cigars Do You Dip or Chew Tobacco: No Smoking End Date: 2006 Second Hand Exposure: No Hx Alcohol Use: No Hx Substance Use: No Review of Systems Review of Systems: All systems reviewed & are unremarkable except as noted in HPI & below Physical Exam Constitutional: well developed; no acute distress Respiratory: normal respiratory effort, lungs clear to auscultation Cardiovascular: Rate/Rhythm: regular rate and regular rhythm Gastrointestinal (Abdomen): Inspection/Auscultation: abdomen not distended Percussion/Palpation: + abdomen tender (Right upper quadrant) and abdomen soft; no abdominal mass Skin: no rashes, warm and dry Lymphatic: no cervical lymphadenopathy Results & Data Vital Signs (Past 12 Hours) Vital Signs Temp Pulse Pulse Resp BP BP Pulse Ox 12/17/18 07:06 36.9 C 45 L 18 163/76 H 93 12/17/18 02:26 37.0 C 75 18 167/78 H 94 12/17/18 01:45 53 L 18 151/85 H 95 12/17/18 01:01 56 L 18 161/78 H 12/17/18 01:00 50 L 15 12/17/18 00:30 58 L 16 96 12/17/18 00:00 60 15 169/76 H 97 12/16/18 23:22 58 L 19 154/89 H 95 12/16/18 23:21 62 18 93 12/16/18 22:02 53 L 15 12/16/18 22:01 51 L 15 125/74 12/16/18 22:00 46 L 16 12/16/18 21:01 52 L 16 179/85 H 12/16/18 21:00 50 L 15 Laboratory Results 12/17/18 12/17/18 12/17/18 Range/Units 06:22 06:22 04:55 WBC 14.15 H (4.8-10.8) K/uL RBC 4.04 L (4.7-6.1) M/uL Hgb 12.8 L (14.0-18.0) g/dL Hct 36.8 L (42-52) % MCV 91.1 (80-100) fL MCH 31.7 (25-34) pg MCHC 34.8 (32-36) g/dL RDW Std Deviation 42.2 (36.4-46.3) fL RDW Coeff of Juan 12.6 (11.5-14.5) % Plt Count 226 (130-400) K/uL MPV 8.6 (7.4-10.4) fL Immature Gran % (Auto) 0.3 % Neut % (Auto) 89.5 % Lymph % (Auto) 4.0 % [place] % (Auto) 6.1 % Eos % (Auto) 0.0 % Baso % (Auto) 0.1 % Immature Gran # (Auto) 0.04 H (0.00-0.02) K/uL Neut # (Auto) 12.66 H (1.4-6.5) K/uL Lymph # (Auto) 0.57 L (1.2-3.4) K/uL [place] # (Auto) 0.87 H (0.11-0.59) K/uL Eos # (Auto) 0.00 (0-0.5) K/uL Baso # (Auto) 0.01 (0-0.2) K/uL Sodium 139 (136-145) mmol/L Potassium 4.1 (3.5-5.1) mmol/L Chloride 107 (98-107) mmol/L Carbon Dioxide 28 (21-32) mmol/L Anion Gap 4.0 (3-11) BUN 19 H (7-18) mg/dl Creatinine 1.21 (0.6-1.4) mg/dl Est Cr Clr Drug Dosing 46.3 ml/min Est GFR ( Amer) 64.7 Est GFR (Non-Af Amer) 55.8 BUN/Creatinine Ratio 15.9 (10-20) Glucose 137 H (70-99) mg/dl Calcium 8.5 (8.5-10.1) mg/dl Total Bilirubin 1.2 H D (0.2-1) mg/dl AST 18 (15-37) U/L ALT 17 (12-78) U/L Alkaline Phosphatase 82 (45-117) U/L Total Protein 6.7 (6.4-8.2) gm/dl Albumin 3.3 L (3.4-5.0) gm/dl Globulin 3.4 (2.5-4.0) gm/dl Albumin/Globulin Ratio 1.0 (0.9-2) Lipase (73-393) U/L Urine Color Dark Yellow Urine Appearance Clear (Clear) Urine pH 6.5 (4.5-7.5) Ur Specific [place] 1.030 (1.000-1.030) Urine Protein Trace H (Negative) Urine Glucose (UA) Negative (Negative) Urine Ketones 1+ H (Negative) Urine Blood Negative (Negative) Urine Nitrite Negative (Negative) Urine Bilirubin Negative (Negative) Urine Urobilinogen Negative (Negative) Ur Leukocyte Esterase Negative (Negative) Urine WBC (Auto) 1-5 (0-5) /hpf Urine RBC (Auto) 0-4 (0-4) /hpf U Hyaline Cast (Auto) 1-5 (0-5) /lpf U Epithel Cells (Auto) 20-30 H (0-5) /lpf Urine Bacteria (Auto) Negative (Negative) 12/16/18 12/16/18 Range/Units 20:05 20:05 WBC 10.44 (4.8-10.8) K/uL RBC 4.31 L (4.7-6.1) M/uL Hgb 13.3 L (14.0-18.0) g/dL Hct 38.9 L (42-52) % MCV 90.3 (80-100) fL MCH 30.9 (25-34) pg MCHC 34.2 (32-36) g/dL RDW Std Deviation 41.0 (36.4-46.3) fL RDW Coeff of Juan 12.5 (11.5-14.5) % Plt Count 266 (130-400) K/uL MPV 8.9 (7.4-10.4) fL Immature Gran % (Auto) 0.2 % Neut % (Auto) 84.1 % Lymph % (Auto) 10.0 % [place] % (Auto) 5.2 % Eos % (Auto) 0.4 % Baso % (Auto) 0.1 % Immature Gran # (Auto) 0.02 (0.00-0.02) K/uL Neut # (Auto) 8.79 H (1.4-6.5) K/uL Lymph # (Auto) 1.04 L (1.2-3.4) K/uL [place] # (Auto) 0.54 (0.11-0.59) K/uL Eos # (Auto) 0.04 (0-0.5) K/uL Baso # (Auto) 0.01 (0-0.2) K/uL Sodium 140 (136-145) mmol/L Potassium 4.1 (3.5-5.1) mmol/L Chloride 104 (98-107) mmol/L Carbon Dioxide 28 (21-32) mmol/L Anion Gap 8.0 (3-11) BUN 21 H (7-18) mg/dl Creatinine 1.16 (0.6-1.4) mg/dl Est Cr Clr Drug Dosing 48.3 ml/min Est GFR ( Amer) 68.1 Est GFR (Non-Af Amer) 58.7 BUN/Creatinine Ratio 17.8 (10-20) Glucose 129 H (70-99) mg/dl Calcium 9.6 (8.5-10.1) mg/dl Total Bilirubin 0.7 (0.2-1) mg/dl AST 19 (15-37) U/L ALT 19 (12-78) U/L Alkaline Phosphatase 100 (45-117) U/L Total Protein 7.8 (6.4-8.2) gm/dl Albumin 4.0 (3.4-5.0) gm/dl Globulin 3.8 (2.5-4.0) gm/dl Albumin/Globulin Ratio 1.1 (0.9-2) Lipase 192 (73-393) U/L Urine Color Urine Appearance (Clear) Urine pH (4.5-7.5) Ur Specific [place] (1.000-1.030) Urine Protein (Negative) Urine Glucose (UA) (Negative) Urine Ketones (Negative) Urine Blood (Negative) Urine Nitrite (Negative) Urine Bilirubin (Negative) Urine Urobilinogen (Negative) Ur Leukocyte Esterase (Negative) Urine WBC (Auto) (0-5) /hpf Urine RBC (Auto) (0-4) /hpf U Hyaline Cast (Auto) (0-5) /lpf U Epithel Cells (Auto) (0-5) /lpf Urine Bacteria (Auto) (Negative) Diagnostic Findings CT abd pelvis wo con CLINICAL HISTORY: 83 years-old Male presenting with vomiting, lower abdominal pain since earlier today, s/p right colon resection. TECHNIQUE: Multidetector CT of the abdomen and pelvis was performed without the use of intravenous contrast. IV contrast: None. One or more dose lowering techniques were used consistent with the principles of ALARA (as low as reasonably achievable), including automatic exposure control, mA or kV adjustment to individual patient size, and/or use of iterative reconstruction. COMPARISON: 10/16/2018. CT DOSE (mGy.cm): The estimated cumulative dose is 466.13 mGy.cm. FINDINGS: Fumigator And Sterilizer topogram: Orthopedic hardware. Lung bases: Normal heart size. Coronary artery calcification. Calcified pleural plaques. No pleural effusion. Minimal dependent changes likely atelectasis. Solid triangular subpleural 6 mm nodule in the right middle lobe unchanged. Liver: Normal morphology. Normal density. Biliary: No gross biliary ductal dilatation allowing for noncontrast technique. Gallbladder contains gallstones. Mild gallbladder wall thickening and pericholecystic inflammation. Pancreas: Normal noncontrast appearance. Spleen: Normal noncontrast appearance. Adrenal glands: Normal noncontrast appearance. Kidneys and ureters: Normal noncontrast appearance. No nephrolithiasis. No hydronephrosis. Normal ureters. Bladder: Normal. Pelvic organs: Normal noncontrast appearance. Streak artifact arising from orthopedic hardware degrades evaluation. Bowel: Limitations in evaluation of the lower rectum due to streak artifact. Diverticulosis of the mid to upper rectum as well as the sigmoid and descending colon. No wall thickening or pericolonic inflammatory change. Postsurgical changes of partial right hemicolectomy with a patent ileocolic anastomosis in the right mid abdomen. No bowel obstruction. No inflammatory change or extraluminal gas at the anastomosis. Peritoneal cavity: No free fluid or intraperitoneal gas. Lymph nodes: No gross lymphadenopathy allowing for noncontrast technique. Vasculature: Atherosclerosis of the normal caliber abdominal aorta. Abdominal wall: Postsurgical changes of the lower abdominal wall may be present. Musculoskeletal: Degenerative changes of the spine. Posterior lumbar fusion hardware. Total left hip arthroplasty. IMPRESSION: 1. Cholelithiasis with gallbladder wall thickening and pericholecystic inflammatory change. Findings highly suspicious for acute calculus cholecystitis. Surgical consultation is warranted. 2. Postsurgical changes of partial right hemicolectomy. No complication or bowel obstruction. 3. Diverticulosis coli. No evidence of diverticulitis. The report will be called/faxed according to standard departmental protocol. US gallbladder CLINICAL HISTORY: 83 years-old Male presenting with abd ct for acute cholecystitis. TECHNIQUE: Real-time grayscale and limited color Doppler ultrasound imaging of the abdomen limited to the right upper quadrant was performed. COMPARISON: CT from earlier today. FINDINGS: Pancreas: Largely obscured due to overlying bowel gas. Liver: Mildly hyperechogenic parenchyma, although the right hemidiaphragm remains visible, likely indicating mild steatosis. The liver measures 15.4 cm in maximal sagittal dimension. No sonographic evidence of hepatic mass. Main portal vein patent with normal directional flow. Biliary: No intrahepatic biliary ductal dilatation. Common bile duct measures up to 4 mm in diameter. Gallbladder: Gallstones with gallbladder sludge, gallbladder distention, and gallbladder wall thickening. Right kidney: Normal in appearance without evidence of hydronephrosis. Ascites: None. Other: None. IMPRESSION: 1. Cholelithiasis with findings suspicious for acute calculus cholecystitis as on CT. Surgical consultation recommended. 2. Mild hepatic steatosis.
[2018-12-17] MEDS ORDERED: TAMSULOSIN HCL 0.4 MG CAP PO SCH (09:00)
[2018-12-17] MEDS ORDERED: LISINOPRIL/HCTZ 10/12.5MG TAB PO SCH (09:00)
[2018-12-17] MEDS ORDERED: PROPOFOL IV EMULSION 10 MG/ML 20 ML VIAL IV ONE (11:27)
[2018-12-17] MEDS ORDERED: ROCURONIUM BROMIDE 10 MG/ML 5 ML VIAL ONE (11:27)
[2018-12-17] MEDS ORDERED: LIDOCAINE HCL 2% 2 ML VIAL/AMP(20MG/ML) INFIL ONE (11:27)
[2018-12-17] MEDS ORDERED: fentaNYL citrate 100 MCG/2 ML VIAL ONE ×3 (11:27→13:36)
[2018-12-17] MEDS ORDERED: ONDANSETRON INJ 2 MG/ML 2 ML VIAL ONE (11:27)
[2018-12-17] MEDS ORDERED: CEFAZOLIN 250 MG/ML 1 GM VIAL ONE (11:38)
[2018-12-17] MEDS ORDERED: BUPIVACAINE 0.5 % 5 MG/1 ML MPF 30ML VIAL ONE (11:38)
[2018-12-17] MEDS ORDERED: HEPARIN (PORCINE) 1000 UNIT/ML 10 ML (CATH LAB USE ONLY) ONE (11:38)
[2018-12-17] MEDS ORDERED: SUCCINYLCHOLINE CHLORIDE 20 MG/ML 10 ML VIAL ONE (12:05)
[2018-12-17] MEDS ORDERED: HYDROmorphone INJ 1 MG/ML SYRINGE IV PRN (12:21)
[2018-12-17] MEDS ORDERED: fentaNYL citrate 100 MCG/2 ML VIAL IV PRN (12:21)
[2018-12-17] MEDS ORDERED: ATROPINE SULFATE 0.1 MG/ML 10ML SYR IV PRN (12:21)
[2018-12-17] MEDS ORDERED: ePHEDrine sulfate 50 MG/ML AMP IV PRN (12:21)
[2018-12-17] MEDS ORDERED: FLOSEAL HEMOSTATIC MATRIX 10ML TOP ONE (13:22)
[2018-12-17] MEDS ORDERED: GLYCOPYRROLATE 0.2 MG/ML VIAL ONE (13:58)
[2018-12-17] MEDS ORDERED: NEOSTIGMINE METHYLSULFATE 5 MG/5 ML SYR ONE (13:58)
[2018-12-17] MEDS ORDERED: ESMOLOL HCL INJ 10 MG/ML 10ML VIAL IV ONE (13:58)
--- NOTE | 2018-12-17 14:01 | Post Operative Brief Note ---
Immediate Post Op Note v1 Date of Surgery December 17, 2018 Pre & Post Diagnosis Operation Date: 12/17/18 11:30 Pre-Op Diagnosis: ACUTE CHOLECYSTITIS Post-Op Diagnosis: ACUTE GANGRENOUS CHOLECYSTITIS Procedure Operation Date: 12/17/18 11:30 Actual Procedures p Laparoscopic Cholecystectomy - Vinod Hannah MD Surgeon Vinod Hannah MD Proposal Specialist None Estimated Blood Loss 25 Findings Consistent with Post-Op Diagnosis Specimens GAllbladder and contents Drains Trevor-Rodriguez Drain (10 flat in subhepatic space) Anesthesia Type General Complications none
--- NOTE | 2018-12-17 14:45 | Anesthesiology Progress Note ---
Date of Service December 17, 2018 Anesthesia Post Procedure Vital Signs Vital Signs: Temp Pulse Pulse Pulse Resp BP BP 12/17/18 14:38 37.1 C 55 L 20 143/63 H 12/17/18 14:30 51 L 19 155/64 H 12/17/18 14:20 53 L 16 142/75 H 12/17/18 14:11 36.7 C 64 16 141/70 H 12/17/18 07:06 36.9 C 45 L 18 163/76 H 12/17/18 02:26 37.0 C 75 18 167/78 H 12/17/18 01:45 53 L 18 151/85 H 12/17/18 01:01 56 L 18 161/78 H 12/17/18 01:00 50 L 15 12/17/18 00:30 58 L 16 12/17/18 00:00 60 15 169/76 H 12/16/18 23:22 58 L 19 154/89 H 12/16/18 23:21 62 18 12/16/18 22:02 53 L 15 12/16/18 22:01 51 L 15 125/74 12/16/18 22:00 46 L 16 12/16/18 21:01 52 L 16 179/85 H 12/16/18 21:00 50 L 15 12/16/18 20:40 51 L 20 179/83 H 12/16/18 20:29 58 L 16 12/16/18 20:18 55 L 27 H 179/83 H 12/16/18 19:47 36.5 C 55 L 18 169/73 H Pulse Ox 12/17/18 14:38 98 12/17/18 14:30 98 12/17/18 14:20 98 12/17/18 14:11 98 12/17/18 07:06 93 12/17/18 02:26 94 12/17/18 01:45 95 12/17/18 01:01 12/17/18 01:00 12/17/18 00:30 96 12/17/18 00:00 97 12/16/18 23:22 95 12/16/18 23:21 93 12/16/18 22:02 12/16/18 22:01 12/16/18 22:00 12/16/18 21:01 12/16/18 21:00 12/16/18 20:40 95 12/16/18 20:29 12/16/18 20:18 12/16/18 19:47 99 Pain Intensity Abdomen: Pain Intensity: 4 Transfer of Care Handoff Completed per policy Notes Mental Status: alert / awake / arousable and participated in evaluation Patient Amnestic to Procedure: Yes Nausea / Vomiting: adequately controlled Pain: adequately controlled Airway Patency, RR, SpO2: stable & adequate BP & HR: stable & adequate Hydration State: stable & adequate Anesthetic Complications: no major complications apparent and Pt Satisfied with anesthetic care
--- NOTE | 2018-12-17 16:07 | Operative Report ---
DATE OF OPERATION: 12/17/2018 PREOPERATIVE DIAGNOSIS: Acute cholecystitis. POSTOPERATIVE DIAGNOSIS: Acute gangrenous cholecystitis. PROCEDURE: Laparoscopic cholecystectomy. SURGEON: Vinod Hannah MD. FINDINGS: The gallbladder was dilated. The wall was thickened. The wall of the gallbladder and areas appeared gangrenous. There were small black stones and sludge within the lumen. The cystic duct was not dilated. The liver was of normal size and contour. TECHNIQUE: The patient was given a general anesthetic and the area was prepped and draped in the usual sterile fashion. Transverse incision was made below the umbilicus, carried down through the subcutaneous tissue to the fascia which was grasped with 2 Terry clamps and incised between. The peritoneum was identified, incised, and the introducer was placed bluntly. The abdomen was then insufflated to a pressure of 15 mmHg with carbon dioxide. The upper midline, midclavicular and anterior axillary introducers were placed under direct vision through small skin incisions. There were few isolated areas of omental adhesion in the anterior abdominal wall that were all taken down using blunt dissection with ease. The patient was placed in reverse Trendelenburg position and airplane left. I then elevated the edge of the liver and was able to bring some omental adhesions down off the fundus of the gallbladder and was able to identify the fundus. I could not grasp it, so the drainage needle was then used to drain the gallbladder of dark bile. I was then able to grasp the fundus and elevate the gallbladder. In doing so, I was then able to place some downward traction on the omentum and divided it using blunt and minimal cautery dissection where appropriate. I wanted to use as little cautery as possible keeping in mind that his most recent right colon resection would have an anastomosis in the general vicinity. I was eventually able to identify the anterior surface of the infundibulum and in the neck of the gallbladder using some hydrodissection. The peritoneum was thickened in that area, but I was able to open it and peel towards the common bile duct and then work back along the right side of the gallbladder and divided away from the liver. The triangle of Calot was opened minimally. I was then able to use some blunt and hydrodissection there as well to separate the tissue planes, but that allowed me then to identify the cystic duct. The cystic duct was then dissected on the medial side, then the lateral side and the infundibulum was dissected away from the liver on that medial side to allow for better mobility. I was able to identify an attachment. There appeared to be the cystic artery in the triangle of [place]. Placing downward, lateral traction on the infundibulum allowed me to confirm the cystic duct and I was able then to establish a plane behind it, confirmed the cystic duct gallbladder junction. The gangrene of the gallbladder extended down to the top of the cystic duct, but the duct itself appeared healthy. Two clips were placed across the cystic duct, in what was healthy tissue, one was placed near the gallbladder and the duct was divided. That allowed me to elevate that and identify the cystic artery behind it. This was doubly clamped proximally once near the gallbladder and divided. That allowed for much more mobility and then along the medial side, it was divided away from the liver. A similar dissection was carried on the lateral side as well. There was not a good plane of dissection, but the gallbladder in some areas did peel without cautery. I encountered a posterior branch of the vessel in trying to divide some thickened attachments. There was some bleeding, but this was easily controlled with clips. The remainder of the gallbladder was then dissected away from the liver a millimeter by millimeter trying to establish a plane and not leave some of the back wall. This was accomplished and the gallbladder was completely . It was placed into an Endobag and brought out through the upper midline incision where I had to open the gallbladder on the outside and extract some of the stones in order to extract the gallbladder within the bag, but that was able to be accomplished. The liver edge was elevated and the subdiaphragmatic and subhepatic spaces were irrigated. There were several areas of oozing in the gallbladder bed of the liver that were controlled with cautery. Further irrigation was performed and this was repeated until the return was fairly clear. I again inspected the gallbladder bed of the liver and there was no bleeding, but since there was such oozing, I filled the gallbladder bed with FloSeal. The previously placed clips were inspected and were intact. A 10 mm Trevor-Rodriguez drain was then brought out through the anterior axillary introducer site after it had been cut to size. It was placed in the subhepatic space and secured at the skin level with 3-0 nylon. The gas was allowed to escape and the introducers were removed. The fascia of the umbilical and upper midline introducer sites was closed with interrupted 0 Vicryl. The skin of all the incisions was closed with 4-0 Monocryl in either an interrupted or running subcuticular fashion. The skin was anesthetized with 0.5% Marcaine. The skin was cleansed, dried, benzoin placed. Steri-Strips applied and dressings placed. The estimated blood loss was 25 mL. Sponge, needle and instrument counts were correct prior to closure. The patient tolerated the surgical procedure without complication and was transferred to recovery. I attest to the content of the Intraoperative Record and any orders documented therein. Any exception s are noted below.
[2018-12-17] MEDS: OXYCODONE/ACETAMINOPHEN 5mg/325mg TAB PO PRN (19:39)
[2018-12-18] MEDS: SODIUM CHLORIDE 0.9% 1000ML 1,000 ML IV SCH ×3 (02:12→18:40)
[2018-12-18 06:25] LABS: Basophils # (auto) 0.01 K/uL (0-0.2); Basophils % (auto) 0.1 %; Eosinophils # (auto) 0.02 K/uL (0-0.5); Eosinophils % (auto) 0.2 %; Hematocrit (blood only) 32.3 % (42-52); Hemoglobin 10.8 g/dL (14.0-18.0); Immature Granulocytes # (auto) 0.02 K/uL (0.00-0.02); Immature Granulocytes % (auto) 0.2 %; Lymphocytes # (auto) 1.06 K/uL (1.2-3.4); Mean Corpuscular Hgb Conc 33.4 g/dL (32-36); Mean Corpuscular Volume 91.8 fL (80-100); Mean Platelet Volume 8.8 fL (7.4-10.4); Monocytes # (auto) 0.87 K/uL (0.11-0.59); Monocytes % (auto) 9.8 %; Neutrophils # (auto) 6.89 K/uL (1.4-6.5); Neutrophils % (auto) 77.7 %; Platelet Count 191 K/uL (130-400); RDW Coefficient of Variation 12.8 % (11.5-14.5); RDW Standard Deviation 43.2 fL (36.4-46.3); Red Blood Count 3.52 M/uL (4.7-6.1); White Blood Count 8.87 K/uL (4.8-10.8)
[2018-12-18 07:06] LABS: Albumin Globulin Ratio 0.9 (0.9-2); Albumin Level 2.6 gm/dl (3.4-5.0); BUN Creatinine Ratio 21.7 (10-20); Bilirubin,Total 1.3 mg/dl (0.2-1); Calcium 8.1 mg/dl (8.5-10.1); Creatinine Clr Calc Pharmacy 77.8 ml/min; Est GFR (African American) 101.4; Est GFR (Non-African American) 87.5; Potassium 4.1 mmol/L (3.5-5.1); Total Protein 5.6 gm/dl (6.4-8.2)
--- NOTE | 2018-12-18 07:23 | Anesthesiology Progress Note ---
Date of Service December 18, 2018 Anesthesia Post Procedure Vital Signs Vital Signs: Temp Pulse Pulse Pulse Resp BP Pulse Ox 12/18/18 03:48 94 12/18/18 03:15 36.7 C 48 L 18 124/78 97 12/17/18 23:00 36.7 C 50 L 18 117/63 98 12/17/18 19:45 37 C 65 18 121/64 97 12/17/18 17:54 37.1 C 59 L 17 119/63 97 12/17/18 16:38 57 L 16 135/71 96 12/17/18 15:42 37.1 C 60 15 149/72 H 97 12/17/18 15:15 36.7 C 55 L 18 138/72 97 12/17/18 14:50 36.4 C L 51 L 16 135/65 97 12/17/18 14:40 37.1 C 55 L 20 143/63 H 98 12/17/18 14:30 51 L 19 155/64 H 98 12/17/18 14:20 53 L 16 142/75 H 98 12/17/18 14:11 36.7 C 64 16 141/70 H 98 Pain Intensity Abdomen: Pain Intensity: 0 Notes Mental Status: alert / awake / arousable and participated in evaluation Patient Amnestic to Procedure: Yes Nausea / Vomiting: adequately controlled Pain: adequately controlled Airway Patency, RR, SpO2: stable & adequate BP & HR: stable & adequate Hydration State: stable & adequate Anesthetic Complications: no major complications apparent and Pt Satisfied with anesthetic care
[2018-12-18] MEDS: OXYCODONE/ACETAMINOPHEN 5mg/325mg TAB PO PRN (08:53)
[2018-12-18 11:21] LABS: INR 1.1 (0.9-1.1); Partial Thromboplastin Time 27.7 Seconds (21.0-31.0); Prothrombin Time 11.2 Seconds (9.0-12.0)
[2018-12-18] MEDS: ENOXAPARIN INJ 40 MG/0.4 ML SYR SQ SCH (12:20)
--- NOTE | 2018-12-18 13:01 | Surgery Progress Note ---
Date of Service December 18, 2018 Assessment & Plan (1) Acute cholecystitis: POD # 1 s/p laparoscopic cholecystectomy for gangrenous cholecystitis -vitals stable, afebrile - post op pain minimal to moderate, controlled with oral Percocet - no n/v, tolerating regular diet, + appetite - geronimo drain with 275 cc bloody serosanguineous output, 120 cc last shift - t. bili 1.3 (1.2 yesterday) - Per patient his t. bili has been elevated in the past - looking back to 02/2018 and 08/2017 t. bili was 1.3. 03/2017 t. bili 1.4 Plan: Continue Po Percocet and Tylenol prn pain Continue regular diet Decrease IV fluids to 75 mls/hr Continue geronimo drain Continue lovenox and scds for dvt prophylaxis Continue incentive spirometry Continue IV Cefoxitin okay from surgical standpoint for discharge tomorrow if does well Dr. Hannah has seen and examined pt, agrees with above Subjective feeling better today moderate pain in RUQ at incision site No nausea or vomiting tolerated regular diet passing flatus, no bowel movement ambulating hallway no chest pain, sob Physical Exam Constitutional: WD/WN, vitals as above no acute distress Respiratory: normal respiratory effort, lungs clear to auscultation Cardiovascular: RRR, no murmur, no edema Gastrointestinal (Abdomen): Inspection/Auscultation: + abdominal surgical drain present (RUQ geronimo drain bloody serosanguineous); abdomen not distended and + abnormal bowel sounds Percussion/Palpation: + abdomen tender (RUQ at drain site) and abdomen soft; no guarding and abdomen not rigid Skin: no rashes, warm and dry + incision (incisions covered clean/dry) Psychiatric: A+Ox3, euthymic affect Results & Data Vital Signs (Past 12 Hours) Vital Signs Temp Pulse Pulse Resp BP Pulse Ox 12/18/18 11:35 36.6 C 56 L 18 120/60 96 12/18/18 07:20 36.7 C 50 L 18 130/80 93 12/18/18 03:48 94 12/18/18 03:15 36.7 C 48 L 18 124/78 97 Laboratory Results 12/18/18 12/18/18 12/18/18 Range/Units 11:00 06:00 06:00 WBC 8.87 (4.8-10.8) K/uL RBC 3.52 L (4.7-6.1) M/uL Hgb 10.8 L (14.0-18.0) g/dL Hct 32.3 L (42-52) % MCV 91.8 (80-100) fL MCH 30.7 (25-34) pg MCHC 33.4 (32-36) g/dL RDW Std Deviation 43.2 (36.4-46.3) fL RDW Coeff of Juan 12.8 (11.5-14.5) % Plt Count 191 (130-400) K/uL MPV 8.8 (7.4-10.4) fL Immature Gran % (Auto) 0.2 % Neut % (Auto) 77.7 % Lymph % (Auto) 12.0 % Fannin % (Auto) 9.8 % Eos % (Auto) 0.2 % Baso % (Auto) 0.1 % Immature Gran # (Auto) 0.02 (0.00-0.02) K/uL Neut # (Auto) 6.89 H (1.4-6.5) K/uL Lymph # (Auto) 1.06 L (1.2-3.4) K/uL Fannin # (Auto) 0.87 H (0.11-0.59) K/uL Eos # (Auto) 0.02 (0-0.5) K/uL Baso # (Auto) 0.01 (0-0.2) K/uL PT 11.2 (9.0-12.0) Seconds INR 1.1 (0.9-1.1) APTT 27.7 (21.0-31.0) Seconds PTT Ratio 1.0 Sodium 140 (136-145) mmol/L Potassium 4.1 (3.5-5.1) mmol/L Chloride 109 H (98-107) mmol/L Carbon Dioxide 26 (21-32) mmol/L Anion Gap 5.0 (3-11) BUN 16 (7-18) mg/dl Creatinine 0.72 D (0.6-1.4) mg/dl Est Cr Clr Drug Dosing 77.8 ml/min Est GFR ( Amer) 101.4 Est GFR (Non-Af Amer) 87.5 BUN/Creatinine Ratio 21.7 H (10-20) Glucose 92 (70-99) mg/dl Calcium 8.1 L (8.5-10.1) mg/dl Total Bilirubin 1.3 H (0.2-1) mg/dl AST 36 (15-37) U/L ALT 35 (12-78) U/L Alkaline Phosphatase 59 (45-117) U/L Total Protein 5.6 L (6.4-8.2) gm/dl Albumin 2.6 L (3.4-5.0) gm/dl Globulin 3.0 (2.5-4.0) gm/dl Albumin/Globulin Ratio 0.9 (0.9-2)
--- NOTE | 2018-12-18 17:53 | Family Medicine Progress Note ---
Date of Service December 18, 2018 Assessment & Plan (1) Acute cholecystitis: 83 y/o s/p hemicolectomy for colon cancer recently, now with acute cholecystitis s/p minerva pavon 12/17/ Acute cholecystitis -Minerva chackoey with Dr. Hannah 12/17 -diet advanced and tolerated -Percocet/Tylenol for pain -NSS decreased to 75 -Cont on IV cefoxitin -Cont MAGDALENO drain. Ok from surgical standpoint for d/c tomorrow if does well HTN -lisinopril/HCTZ held. BP stable here -Hold ASA BPH -Cont home tamsulosin FEN/GI: NSS at 75. Regular Diet DVT Prophylaxis: JOHNNY Almazans Full Code Dispo: med/surg. Likely d/c tomorrow Supervising Physician Co-Signing Physician Notes I personally examined the patient and verified all haskins points of history and exam, discussed case, and agree with decision making with Dr Aparicio. Feeling better. No significant abdominal pain. Vitals noted, in general he is awake and alert, has minimal right upper quadrant tenderness without any guarding rebound or rigidity. Cholecystitisnow postop, continue supportive care and antibiotics. Appreciate surgery input. DVT prophylaxisLovenox Otherwise as above Subjective 83 y/o found in bed this AM in NAD. No overnight events reported. Pt states pain better today. Moderate pain in RUQ at incision site. Pain worse sitting down, better when stands up. Tolerating PO intake. No issues voiding. No other acute concerns or complaints. Review of Systems Review of Systems: All systems reviewed & are unremarkable except as noted in HPI & below Physical Exam Constitutional: WD/WN, vitals as above Eyes: PERRL, conjunctivae normal, anicteric sclerae ENMT: external ear and nose normal, oropharynx normal black 'thrush' like material on tongue, improved Respiratory: normal respiratory effort, lungs clear to auscultation Cardiovascular: RRR, no murmur, no edema Gastrointestinal (Abdomen): some RUQ pain at incision site Skin: no rashes, warm and dry Psychiatric: A+Ox3, euthymic affect Results & Data Vital Signs (Past 12 Hours) Vital Signs Temp Pulse Pulse Resp BP Pulse Ox 12/18/18 15:50 36.3 C L 54 L 16 143/69 H 96 12/18/18 11:35 36.6 C 56 L 18 120/60 96 12/18/18 07:20 36.7 C 50 L 18 130/80 93 Laboratory Results Laboratory Results - last 24 hr 12/18/18 12/18/18 12/18/18 06:00 06:00 11:00 WBC 8.87 RBC 3.52 L Hgb 10.8 L Hct 32.3 L MCV 91.8 MCH 30.7 MCHC 33.4 RDW Std Deviation 43.2 RDW Coeff of Juan 12.8 Plt Count 191 MPV 8.8 Immature Gran % (Auto) 0.2 Neut % (Auto) 77.7 Lymph % (Auto) 12.0 Waldo % (Auto) 9.8 Eos % (Auto) 0.2 Baso % (Auto) 0.1 Immature Gran # (Auto) 0.02 Neut # (Auto) 6.89 H Lymph # (Auto) 1.06 L Waldo # (Auto) 0.87 H Eos # (Auto) 0.02 Baso # (Auto) 0.01 PT 11.2 INR 1.1 APTT 27.7 PTT Ratio 1.0 Sodium 140 Potassium 4.1 Chloride 109 H Carbon Dioxide 26 Anion Gap 5.0 BUN 16 Creatinine 0.72 D Est Cr Clr Drug Dosing 77.8 Est GFR ( Amer) 101.4 Est GFR (Non-Af Amer) 87.5 BUN/Creatinine Ratio 21.7 H Glucose 92 Calcium 8.1 L Total Bilirubin 1.3 H AST 36 ALT 35 Alkaline Phosphatase 59 Total Protein 5.6 L Albumin 2.6 L Globulin 3.0 Albumin/Globulin Ratio 0.9 Medications Administered Current Inpatient Medications Acetaminophen (Tylenol) 650 mg PO Q4H PRN PRN Reason: pain/fever Stop: 01/16/19 01:56 Al Hydrox/Mg Hydrox/Simethicone (Maalox) 30 ml PO Q6H PRN PRN Reason: Dyspepsia Stop: 01/16/19 01:56 Enoxaparin Sodium (Lovenox) 40 mg SQ QAM [facility] Stop: 01/17/19 11:59 Last Admin: 12/18/18 12:20 Dose: 40 mg Documented by: Sodium Chloride (Nss 1000ml) 1,000 mls @ 75 mls/hr IV .[id number] [facility] Stop: 01/16/19 01:56 Last Infusion: 12/18/18 14:49 Dose: 75 mls/hr Documented by: Cefoxitin Sodium 1,000 mg/ (Dextrose) 60 mls @ 100 mls/hr IV Q6H GRZEGORZ Stop: 12/27/18 05:59 Last Infusion: 12/18/18 13:23 Dose: Infused Documented by: Magnesium Hydroxide (Milk Of Magnesia) 30 ml PO Q6H PRN PRN Reason: Constipation Stop: 01/16/19 01:56 Ondansetron HCl (Zofran) 4 mg IV Q6H PRN PRN Reason: Nausea Stop: 01/16/19 01:56 Ondansetron HCl (Zofran) 4 mg IV Q6H PRN PRN Reason: nausea Stop: 01/16/19 15:41 Oxycodone/Acetaminophen (Percocet 5mg/325mg) 1 tab PO Q4H PRN PRN Reason: Pain Stop: 12/31/18 15:41 Last Admin: 12/18/18 08:53 Dose: 1 tab Documented by: Polyethylene Glycol (Miralax Powder Packet) 17 gm PO DAILY PRN PRN Reason: Constipation Stop: 01/16/19 01:56 Resident Activity Tracking Resident Involvement: Resident Care Provided Care Provided: Adult Hospital Medicine
[2018-12-19 06:30] LABS: Basophils # (auto) 0.01 K/uL (0-0.2); Basophils % (auto) 0.1 %; Eosinophils # (auto) 0.09 K/uL (0-0.5); Eosinophils % (auto) 1.2 %; Hematocrit (blood only) 33.8 % (42-52); Hemoglobin 11.4 g/dL (14.0-18.0); Immature Granulocytes # (auto) 0.01 K/uL (0.00-0.02); Immature Granulocytes % (auto) 0.1 %; Lymphocytes # (auto) 1.18 K/uL (1.2-3.4); Lymphocytes % (auto) 15.9 %; Mean Corpuscular Hgb Conc 33.7 g/dL (32-36); Mean Corpuscular Volume 92.3 fL (80-100); Mean Platelet Volume 8.7 fL (7.4-10.4); Monocytes # (auto) 0.72 K/uL (0.11-0.59); Monocytes % (auto) 9.7 %; Platelet Count 203 K/uL (130-400); RDW Coefficient of Variation 12.7 % (11.5-14.5); RDW Standard Deviation 42.8 fL (36.4-46.3); Red Blood Count 3.66 M/uL (4.7-6.1); White Blood Count 7.41 K/uL (4.8-10.8)
[2018-12-19 06:56] LABS: Albumin Level 2.7 gm/dl (3.4-5.0); BUN Creatinine Ratio 18.8 (10-20); Calcium 8.3 mg/dl (8.5-10.1); Creatinine Clr Calc Pharmacy 68.4 ml/min; Est GFR (African American) 96.1; Est GFR (Non-African American) 82.9; Potassium 3.9 mmol/L (3.5-5.1)
[2018-12-19 06:59] LABS: Albumin Globulin Ratio 0.8 (0.9-2); Bilirubin,Total 0.9 mg/dl (0.2-1); Globulin 3.5 gm/dl (2.5-4.0); Total Protein 6.2 gm/dl (6.4-8.2)
[2018-12-19] MEDS ORDERED: TAMSULOSIN HCL 0.4 MG CAP PO SCH (09:00)
[2018-12-19] MEDS: SODIUM CHLORIDE 0.9% 1000ML 1,000 ML IV SCH (09:35)
[2018-12-19] MEDS: ENOXAPARIN INJ 40 MG/0.4 ML SYR SQ SCH (09:35)
--- NOTE | 2018-12-19 11:44 | Surgery Progress Note ---
Date of Service December 19, 2018 Assessment & Plan (1) Acute cholecystitis: POD # 2 s/p laparoscopic cholecystectomy for gangrenous cholecystitis -vitals stable, afebrile - post op pain minimal - no n/v, tolerating regular diet, + appetite - geronimo drain with 270 cc serosanguineous output, 80 cc last shift - t. bili 0.9 (1.3 yesterday) - Per patient his t. bili has been elevated in the past - looking back to 02/2018 and 08/2017 t. bili was 1.3. 03/2017 t. bili 1.4 Plan: Okay from surgical standpoint for discharge discharge instructions reviewed Rx for Percocet prn pain Discontinue geronimo drain today f/u surgical office in [address] Gonzalez who agrees with above Subjective feeling well today RUQ pain at drain site drastically improved, only took 1 percocet yesterday tolerating regular diet, no n/v no chest pain/sob ambulating small urinating without difficulty two bowel movements this morning Physical Exam Constitutional: WD/WN, vitals as above Respiratory: normal respiratory effort; no respiratory distress Gastrointestinal (Abdomen): normal bowel sounds, soft, nontender, no hepatosplenomegaly Inspection/Auscultation: + abdominal surgical drain present (serosanguineous); abdomen not distended Percussion/Palpation: abdomen soft; abdomen nontender, no guarding and abdomen not rigid Skin: no rashes, warm and dry + incision (Covered with dry dressings and clean) Psychiatric: A+Ox3, euthymic affect Results & Data Vital Signs (Past 12 Hours) Vital Signs Temp Pulse Resp BP Pulse Ox 12/19/18 08:14 36.6 C 53 L 18 134/72 96 Laboratory Results 12/19/18 12/19/18 Range/Units 06:16 06:16 WBC 7.41 (4.8-10.8) K/uL RBC 3.66 L (4.7-6.1) M/uL Hgb 11.4 L (14.0-18.0) g/dL Hct 33.8 L (42-52) % MCV 92.3 (80-100) fL MCH 31.1 (25-34) pg MCHC 33.7 (32-36) g/dL RDW Std Deviation 42.8 (36.4-46.3) fL RDW Coeff of Juan 12.7 (11.5-14.5) % Plt Count 203 (130-400) K/uL MPV 8.7 (7.4-10.4) fL Immature Gran % (Auto) 0.1 % Neut % (Auto) 73.0 % Lymph % (Auto) 15.9 % Hamilton % (Auto) 9.7 % Eos % (Auto) 1.2 % Baso % (Auto) 0.1 % Immature Gran # (Auto) 0.01 (0.00-0.02) K/uL Neut # (Auto) 5.40 (1.4-6.5) K/uL Lymph # (Auto) 1.18 L (1.2-3.4) K/uL Hamilton # (Auto) 0.72 H (0.11-0.59) K/uL Eos # (Auto) 0.09 (0-0.5) K/uL Baso # (Auto) 0.01 (0-0.2) K/uL Sodium 143 (136-145) mmol/L Potassium 3.9 (3.5-5.1) mmol/L Chloride 110 H (98-107) mmol/L Carbon Dioxide 26 (21-32) mmol/L Anion Gap 7.0 (3-11) BUN 15 (7-18) mg/dl Creatinine 0.82 (0.6-1.4) mg/dl Est Cr Clr Drug Dosing 68.4 ml/min Est GFR ( Amer) 96.1 Est GFR (Non-Af Amer) 82.9 BUN/Creatinine Ratio 18.8 (10-20) Glucose 89 (70-99) mg/dl Calcium 8.3 L (8.5-10.1) mg/dl Total Bilirubin 0.9 (0.2-1) mg/dl AST 30 (15-37) U/L ALT 33 (12-78) U/L Alkaline Phosphatase 61 (45-117) U/L Total Protein 6.2 L (6.4-8.2) gm/dl Albumin 2.7 L (3.4-5.0) gm/dl Globulin 3.5 (2.5-4.0) gm/dl Albumin/Globulin Ratio 0.8 L (0.9-2)
--- NOTE | 2018-12-19 13:28 | Discharge Summary ---
Date of Service December 19, 2018 Admission HPI Per Admitting Provider Patient is a pleasant 83yo M H colon cancer s/p R colectomy, HTN, BPH, who presents with vague lower abdominal pain. He notes earlier in the day he was at a graduation republican for his granddaughter, eating pork/bbq, and while eating started having severe abdominal pain and associated vomiting. Patient had R partial pablo-colectomy performed by Dr Marie in [place] on 11/06/18 due to colon cancer and notes things had been doing well. In the ER, patient's vital signs were stable, he had normal labwork including CBC, CMP, lipase. A CT abdo was performed which revealed post-surgical findings of pablo-colectomy as well as cholelithiasis with gallbladder wall thickening/pericholecystic fluid. An accompanying GBUS was performed which confirmed cholelithiasis with findings suspicious for acute calculus cholecystitis. General surgery was consulted who recommended medical admission and will patient be assessed in the AM. He was started on cefoxitin, IVF, and has pain control prn. Principal Diagnosis gang. cholecystitis Discharge Exam Constitutional WD/WN, vitals as above Eyes PERRL, conjunctivae normal, anicteric sclerae ENMT external ear and nose normal, oropharynx normal Respiratory normal respiratory effort, lungs clear to auscultation Cardiovascular RRR, no murmur, no edema Skin no rashes, warm and dry Psychiatric A+Ox3, euthymic affect Discharge Data Allergies Allergy/AdvReac Type Severity Reaction Status Date / Time adhesive Allergy Mild SKIN Verified 01/11/17 17:50 REDNESS Consultations 12/17/18 01:57 Consult General Surgery Routine Procedures Performed Operation Date: 12/17/18 11:30 Actual Procedures p Laparoscopic Cholecystectomy - Vinod Hannah MD Ordered Studies 12/16/18 20:30 CT abd pelvis wo con Stat 12/16/18 21:57 US gallbladder Stat Hospital Course (1) Acute cholecystitis: 83 y/o s/p hemicolectomy for colon cancer recently, now with acute cholecystitis s/p lap choley 12/17. The following is the medical management during stay here. Acute cholecystitis -Pt had a Lap choley performed by Dr. Hannah 12/17. Post-op diet was advanced and tolerated well. Pt was given Percocet/Tylenol for pain. Pt was cont on IV cefoxitin, however, on /, pt will not require any antibiotic regimen. Pt's t bili was 0.9 on /, down from 1.3 the day prior. Per patient his t. bili had been elevated in the past: looking back 02/2018 and 08/2017 t. bili was 1.3., and 03/2017 t. bili was 1.4. On /, pt was given Rx for Percocet prn pain, and MAGDALENO drain was discontinued with plan for f/u surgical office in 2 weeks. HTN -Pt's BP was stable here and we held lisinopril/HCTZ. This can be resumed on /. BPH -We continued home tamsulosin DVT Prophylaxis was with Lovenox, SCDs. On day of /, pt had no other acute concerns or complaints. Total Time Total Time Spent Total Time Spent (In Minutes): <30 min Discharge Plan Discharge Items Patient Disposition: Home - Self-Care Reason For Visit: CHOLECYSTITIS Discharge Diagnosis: Gangrenous cholecystitis Discharge Goals: Decrease discomfort and Improve function Activity: Per 'Additional Instructions' section Non-emergency contact: Primary Care Provider Call non-emergency contact if: you have any medication questions, your symptoms worsen, your pain is not controlled and your temperature is above 101.5 Follow-up/Referrals: aMriajose John MD [Primary Care Provider] - 01/01/19 8:00 am Vinod Hannah MD [Physician] - 01/03/19 8:00 am Diet: Regular Addtl Provider Instructions: Post-Surgical ~Discharge Instructions Activity Recommendations: - lifting limitation: (10 pounds for 2 weeks), - exercise/sex/sports limit: (nonstrenuous for 2 weeks), - driving or machine use limit: (none for 1 week), - Shower/bathe limit: (may shower beginning tomorrow) Diet: - Resume previous diet SPECIAL CARE INSTRUCTIONS: - May shower in 24 hours. Let water run over area and pat dry. - Keep dressing over drain site. Change daily or as needed to keep clean and dry. - Leave steri strips on for one week. - Call the surgeon's office with any questions or concerns - (ex. temperature higher than 101 degrees F, excessive bleeding or pain). MEDICATIONS: - Resume previous medications unless instructed otherwise. - Ibuprofen 600 mg every 6 hours with food - May take extra strength Tylenol (650 mg) every 6 hours, alternating with Ibuprofen. - Percocet 1 every 4 hours, as needed for moderate to severe pain FOLLOW UP VISIT: - If not already scheduled, please call the office to schedule a two week follow-up appointment. Office number Prescriptions: New oxycodone-acetaminophen [Percocet] 5-325 mg Tablet 1 tab PO Q4H PRN (Reason: pain) Qty: 10 RF: 0 Continued clindamycin HCl [Cleocin HCl] 300 mg capsule 600 mg PO UD RF: 0 aspirin [Aspir-81] 81 mg Tablet,Delayed Release (Dr/Ec) 81 mg PO DAILY RF: 0 calcium carbonate [Calcium 600] 600 mg calcium (1,500 mg) Tablet 600 mg PO BID RF: 0 tamsulosin [Flomax] 0.4 mg capsule 0.4 mg PO DAILY RF: 0 Refresh Tears 0.5 % Drops 1 drp OPHTHALMIC (EYE) BID PRN (Reason: Dry Eyes) RF: 0 lisinopril-hydrochlorothiazide [Zestoretic] 10-12.5 mg tablet 0.5 tab PO DAILY RF: 0 Men's Multivitamin 400-20-300 mcg Tablet 1 tab PO DAILY RF: 0 Stand-Alone Forms: naaya, Opioid Pain Management Krames/Other Patient Handouts: Cholecystectomy Laparoscopic, Cholecystectomy Laparoscopic Dc Discharge Orders: Discharge Order (Routine); Ordered 12/19/18 Ordered By: Rubén Aparicio Admission Data Admit Date/Time: 12/17/18 00:56 Attending Provider: Rodney Catherine Admit Provider: Annika Resendiz Primary Care Provider: Mariajose John Other Providers: Idania Oswald ; Vinod Hannah ; Breanna Caldwell Service: Surgical Services Other Interventions: Discharge Summary Assessment (RN) Last Done: 12/19/18 13:44 Pending Studies at Discharge: Yes (Gallbladder pathology, will be reviewed at follow-up visit) DC Date/Time DO NOT enter until pt leaves facility: 06/11/19 14:30 Supervising Physician Co-Signing Physician Notes I personally examined the patient and verified all haskins points of history and exam, discussed case, and agree with decision making with Dr Aparicio. Feeling good overall Vitals noted, in general he is awake and alert, nc at mmm. breathing unlabored no accessory muscles. normal gait. no focal neuro deficits. good color/no pallor or icterus Cholecystitisnow postop, stable for home. Appreciate surgery input. DVT prophylaxisLovenox utilized during his stay Otherwise as above Resident Activity Tracking Resident Involvement: Resident Care Provided Care Provided: Adult Hospital Medicine
== END 2018-12-19 14:30 | disposition home or self-care (01) | DRG 419 ==
LOC: ED 19:46 → 3N 12-17 00:56 → SUATTDRO 12-17 00:56 → 3N 12-17 01:45
DX: Z51.81 Encounter for therapeutic drug level monitoring; Z87.891 Personal history of nicotine dependence; K80.00 Calculus of gallbladder with acute cholecystitis without obstruction; I10 Essential (primary) hypertension; K82.A1 Gangrene of gallbladder in cholecystitis; Z86.73 Personal history of transient ischemic attack (TIA), and cerebral infarction without residual deficits; N40.0 Benign prostatic hyperplasia without lower urinary tract symptoms; Z85.038 Personal history of other malignant neoplasm of large intestine; Z79.82 Long term (current) use of aspirin; Z79.899 Other long term (current) drug therapy; Z91.048 Other nonmedicinal substance allergy status

== ENCOUNTER 2019-02-23 02:50 | Inpatient (IN) ==
[2019-02-23 03:40] LABS: Basophils # (auto) 0.02 K/uL (0-0.2); Basophils % (auto) 0.2 %; Eosinophils # (auto) 0.07 K/uL (0-0.5); Eosinophils % (auto) 0.7 %; Hemoglobin 12.8 g/dL (14.0-18.0); Immature Granulocytes # (auto) 0.02 K/uL (0.00-0.02); Immature Granulocytes % (auto) 0.2 %; Lymphocytes # (auto) 0.95 K/uL (1.2-3.4); Lymphocytes % (auto) 9.8 %; Mean Corpuscular Hgb Conc 33.7 g/dL (32-36); Mean Corpuscular Volume 88.6 fL (80-100); Mean Platelet Volume 9.3 fL (7.4-10.4); Monocytes # (auto) 0.78 K/uL (0.11-0.59); Neutrophils # (auto) 7.88 K/uL (1.4-6.5); Neutrophils % (auto) 81.1 %; Platelet Count 218 K/uL (130-400); RDW Coefficient of Variation 13.8 % (11.5-14.5); RDW Standard Deviation 44.5 fL (36.4-46.3); Red Blood Count 4.29 M/uL (4.7-6.1); White Blood Count 9.72 K/uL (4.8-10.8)
[2019-02-23 03:45] LABS: Appearance Urine Clear (Clear); Blood Urine Negative (Negative); Color Urine Dark Yellow; Glucose Urine UA Negative (Negative); Ketones Urine Negative (Negative); Leukocyte Esterase Urine Negative (Negative); Nitrite Urine Negative (Negative); Protein Urine Negative (Negative); Urobilinogen Urine Negative (Negative)
[2019-02-23 03:50] LABS: Bilirubin Urine 1+ (Negative)
[2019-02-23 03:54] LABS: Ictotest Urine Positive (Negative)
[2019-02-23 04:22] LABS: Albumin Level 3.5 gm/dl (3.4-5.0); BUN Creatinine Ratio 15.5 (10-20); Bilirubin,Total 7.9 mg/dl (0.2-1); Calcium 9.1 mg/dl (8.5-10.1); Creatinine Clr Calc Pharmacy 30.8 ml/min; Est GFR (African American) 84.5; Est GFR (Non-African American) 72.9; Globulin 3.6 gm/dl (2.5-4.0); Total Protein 7.1 gm/dl (6.4-8.2)
[2019-02-23] MEDS ORDERED: ONDANSETRON INJ 2 MG/ML 2 ML VIAL IV STA (04:42)
[2019-02-23] MEDS ORDERED: HYDROmorphone INJ 0.5 MG/0.5 ML SYR IV STA (04:42)
[2019-02-23] MEDS ORDERED: IOVERSOL 100ml IV PRN (04:50)
[2019-02-23] MEDS: SODIUM CHLORIDE 0.9% 500 ML IV SCH ×2 (04:58→09:57)
--- NOTE | 2019-02-23 05:23 | History & Physical Report ---
Date of Service February 23, 2019 Assessment & Plan (1) Pancreatitis: Patient will be admitted to [facility] with tele. Patient had history of Acute cholecystitis treated with a Lap choley performed by Dr. Hannah 12/17. P Patient will be placed on IVF. Patient will be placed on pain medicine. will recheck lipase in AM. 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 will be monitoring his hemoglobin in AM. 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 (4) Hypertension: BP is elevated. Patient is currently only on a diuretic. This will be held. Will place patient on an marybel-inhibitor. (5) History of colon resection: Patient had colon cancer. Patient had R partial pablo-colectomy performed by Dr Marie in [place] on 11/06/18 due to colon cancer DVT : lovenox History of Present Illness Chief Complaint: Epigastric abd. pain Primary Care Provider: Mariajose John MD This is a pleasant 83 yo male with past medical history described below, Patient reports having intermittent abd. pain which began about 2-3 weeks. He reports that they became more frequent this past weekend. Pain was dull, sometimes burning, epigastric, non radiating, would last about 20-30 mins. Patient did not appreciate any associated factors, except for diary food. However from Tuesday to tuesday, patient had no pain, until . On evening, patient had abd. pain which was severe and began at 10 pm. The pain did not subside over the course of the night. Patient arrived at the ER and was diagnosed with pancreatitis due to elevated lipase. Allergies Allergy/AdvReac Type Severity Reaction Status Date / Time adhesive Allergy Mild SKIN Verified 02/23/19 04:02 REDNESS No Known Drug Allergies AdvReac Unknown Unknown Verified 02/23/19 04:02 mylan brand HTN AdvReac Tachycardia Uncoded 02/23/19 07:04 Home Medications Home Medications Medication Instructions Recorded Confirmed Type Men's Multivitamin 1 tab PO DAILY 12/16/18 02/23/19 History aspirin [Aspir-81] 81 mg PO DAILY 12/16/18 02/23/19 History calcium carbonate [Calcium 600] 600 mg PO BID 12/16/18 02/23/19 History lisinopril 10 0.5 tab PO DAILY #45 tab 12/26/18 02/23/19 Rx mg-hydrochlorothiazide 12.5 mg tablet tamsulosin 0.4 mg capsule 0.4 mg PO DAILY #90 cap 01/29/19 02/23/19 Rx omeprazole 20 mg capsule,delayed 20 mg PO DAILY #30 cap 02/06/19 02/23/19 Rx release metronidazole 500 mg PO TID #15 tab 02/26/19 Rx Past Med/Surg History Medical History Anemia (Acute) Angioma (Acute) Hypertension (Acute) Palpitations (Acute) Pleural plaque (Acute) Pyogenic arthritis of right knee joint (Acute) Seborrheic keratosis (Acute) Transient amnesia (Acute) BPH (benign prostatic hyperplasia) Acute cholecystitis (Acute) Colon cancer (Chronic) Hypertension (Chronic) Osteoarthritis (Chronic) TIA (transient ischemic attack) Pt denies BPH (benign prostatic hyperplasia) Surgical History History of colon resection (Chronic) Hx of cholecystectomy S/P TKR (total knee replacement) Right X 2 S/P arthroscopy of shoulder Left S/P cataract extraction Bilateral S/P hip replacement Left S/P laparoscopic cholecystectomy 12/17/18 Dr. Vinod Presley Social History Preferred Language: Mozambican Communication Ability: Effective Underwater Hunter Required: No Beliefs That Will Affect Care: None marital status: Current Living Situation: Spouse Feels Safe at Home: Yes Smoking Status: Former smoker Tobacco Type: pipe and cigars ; Second Hand Exposure: No ; Hx Alcohol Use: No Hx Substance Use: No Review of Systems Constitutional: no fever, no sweats and no malaise Eyes: no diplopia Ear, Nose, Mouth, Throat: no ear trauma and no hyperacusis Respiratory: no cough Cardiovascular: no chest pain and no radiating jaw, neck or arm pain Gastrointestinal: + abdominal pain Genitourinary: no dysuria Musculoskeletal: no back pain Integumentary: no acne Psychiatric: no hopelessness and no panic attacks Endocrine: no fatigue Hematologic / Lymphatic: no easy bleeding Physical Exam Constitutional: WD/WN, vitals as above well developed Eyes: PERRL, conjunctivae normal, anicteric sclerae ENMT: external ear and nose normal, oropharynx normal Neck: trachea midline, no thyromegaly Respiratory: normal respiratory effort, lungs clear to auscultation Cardiovascular: RRR, no murmur, no edema Gastrointestinal (Abdomen): normal bowel sounds, soft, nontender, no hepatosplenomegaly Skin: no rashes, warm and dry Neurologic: PERRL, EOMI, accommodation nl, no face palsy, no dysarthria Lymphatic: no cervical or axillary lymphadenopathy Results & Data Vital Signs (Past 12 Hours) Vital Signs Temp Pulse Resp BP BP Pulse Ox 02/23/19 04:48 58 L 18 173/85 H 97 02/23/19 03:39 97 H 16 164/82 H 97 02/23/19 03:20 98 02/23/19 02:56 36.5 C 16 176/90 H 98 PG Care Time/CCT Total # of Minutes Spent Total Time Spent with Patient: Total time spent is greater than 50% in coordination of care (as documented) at patient's floor/unit and/or counseling patient: (1) Pancreatitis Acute pancreatitis complication: unspecified Chronicity: acute Pancreatitis type: unspecified pancreatitis type Qualified Code(s): K85.90 - Acute pancreatitis without necrosis or infection, unspecified
[2019-02-23] MEDS ORDERED: LISINOPRIL 5 MG TAB PO ONE (05:55)
--- NOTE | 2019-02-23 07:48 | CT Scan Report ---
ABDOMEN AND PELVIS CT WITH IV CONTRAST CT DOSE: 467.86 mGy.cm HISTORY: Right upper quadrant pain. eval pancreas and RUQ TECHNIQUE: Multiaxial CT images of the abdomen and pelvis were performed following the use of intrave nous contrast. A dose lowering technique was utilized adhering to the principles of ALARA. COMPARISON STUDY: Abdomen and pelvis CT 12/16/2018. FINDINGS: The gallbladder is surgically absent. There is intra and extrahepatic bile duct dilatation. The common bile that measures up to 1 cm. Punctate density in the expected location of the distal co mmon bile duct best seen on image 166. This could represent a distal common bile duct stone. There is mild inflammatory change surrounding the pancreas consistent with acute pancreatitis. There is mild inflammatory change at the melanie hepatis which could be due to the recent postcholecystectomy changes . 7 mm hypodense lesion within the left hepatic lobe is too small to characterize but favors a cyst. The spleen is unremarkable. A few subcentimeter bilateral renal hypodense lesions are also too small to characterize but favor cysts. No hydronephrosis. No retroperitoneal lymphadenopathy. The bladder i s unremarkable. The prostate gland is mildly enlarged. Colonic diverticulosis. No bowel wall thickeni ng or obstruction. Prior right hemicolectomy. Therefore, the appendix is surgically absent. A few sub centimeter subpleural nodules within the lung bases with the largest on the right measuring 5 mm. IMPRESSION: 1. Inflammatory change surrounding the pancreas consistent with acute pancreatitis. 2. Intra and extrahepatic bile duct dilatation. There is also a punctate density at the expected loca tion of the distal common bile duct as described above. This could represent a distal common bile ronan t stone. MRCP is recommended for further evaluation. 3. Additional findings as described above. Electronically signed by: Chaim Olmstead M.D. 02/23/2019 7:47 AM
[2019-02-23] MEDS: MoRPHine SULFATE 4 MG/ML 1 ML CARP\\VIAL IV PRN ×2 (07:54→13:21)
[2019-02-23] MEDS ORDERED: PANTOprazole 40 MG TAB PO SCH (09:00)
[2019-02-23 09:39] LABS: Prothrombin Time 9.8 Seconds (9.0-12.0)
[2019-02-23] MEDS: LACTATED RINGER'S 1,000 ML IV SCH ×2 (10:12→18:56)
[2019-02-23] MEDS ORDERED: ENOXAPARIN INJ 40 MG/0.4 ML SYR SQ SCH (11:30)
[2019-02-23] MEDS: TAMSULOSIN HCL 0.4 MG CAP PO SCH (12:51)
[2019-02-23] MEDS: ASPIRIN 81 MG ECTAB PO SCH (12:51)
--- NOTE | 2019-02-23 14:08 | Emergency Department Note ---
Entered by Kane Zhang acting as a scribe for Maria Teresa Mcfarland DO History of Present Illness General Chief complaint: Abdominal Pain Stated complaint: PAIN IN ABD Time Seen by Provider: 02/23/19 03:01 Source: patient History of Present Illness Onset (ago): day(s) (2230 yesterday) Location: abdomen Pain Consistency: + other (worsening) Maximum Pain Intensity: 7 Associated symptoms: + other (Positive for nausea and an increased frequency of urination. Negative for vomiting, fever, chills, dysuria, and diarrhea.) The patient is an 83 year old male who presents to the emergency department with complaints of worsening abdominal pain beginning at 2230 yesterday. The patient states that he had a cholecystectomy done on 12/17/2018, and he notes that he has been having intermittent abdominal pain since. He reports that his current pain started at 2230 last night and has worsened since. He also complains of nausea and an increased frequency of urination. He denies any vomiting, fever, chills, dysuria, and diarrhea. The patient states that he has a previous history of colon cancer. He notes that he had a hamburger and carrots for dinner tonight. He reports that he does not drink any alcohol. Home Medications Home Medications Medication Instructions Recorded Confirmed Type Men's Multivitamin 1 tab PO DAILY 12/16/18 02/23/19 History aspirin [Aspir-81] 81 mg PO DAILY 12/16/18 02/23/19 History calcium carbonate [Calcium 600] 600 mg PO BID 12/16/18 02/23/19 History clindamycin HCl [Cleocin HCl] 600 mg PO UD 12/16/18 02/23/19 History lisinopril 10 0.5 tab PO DAILY #45 tab 12/26/18 02/23/19 Rx mg-hydrochlorothiazide 12.5 mg tablet tamsulosin 0.4 mg capsule 0.4 mg PO DAILY #90 cap 01/29/19 02/23/19 Rx omeprazole 20 mg capsule,delayed 20 mg PO DAILY #30 cap 02/06/19 02/23/19 Rx release Allergies Allergy/AdvReac Type Severity Reaction Status Date / Time adhesive Allergy Mild SKIN Verified 02/23/19 04:02 REDNESS No Known Drug Allergies AdvReac Unknown Unknown Verified 02/23/19 04:02 mylan brand HTN AdvReac Tachycardia Uncoded 02/23/19 07:04 Past Med/Surg History Medical History Anemia (Acute) Angioma (Acute) Hypertension (Acute) Palpitations (Acute) Pleural plaque (Acute) Pyogenic arthritis of right knee joint (Acute) Seborrheic keratosis (Acute) Transient amnesia (Acute) BPH (benign prostatic hyperplasia) Acute cholecystitis (Acute) Colon cancer (Chronic) Hypertension (Chronic) Osteoarthritis (Chronic) TIA (transient ischemic attack) Pt denies BPH (benign prostatic hyperplasia) Surgical History History of colon resection (Chronic) Hx of cholecystectomy S/P TKR (total knee replacement) Right X 2 S/P arthroscopy of shoulder Left S/P cataract extraction Bilateral S/P hip replacement Left S/P laparoscopic cholecystectomy 12/17/18 Dr. Vinod Presley Social History Preferred Language: Chadian Communication Ability: Effective Shop Clerk Required: No Beliefs That Will Affect Care: None marital status: Current Living Situation: Spouse Feels Safe at Home: Yes Smoking Status: Never smoker Tobacco Type: pipe and cigars ; Second Hand Exposure: No ; Hx Alcohol Use: No Hx Substance Use: No Review of Systems See HPI for pertinent positives & negatives. and A total of 10 systems reviewed and were otherwise negative Physical Exam Vital Signs Vital Signs - 24 hr 02/23/19 02:56 02/23/19 03:20 02/23/19 03:39 Temperature 36.5 C Temperature Source Oral Sepsis Recent Fever Within 48 Hours No Sepsis New/Unexplained Change in Mental Status No Sepsis Action Taken by Nursing No Action Required Pulse Rate [Finger] 97 H Respiratory Rate 16 16 Respiratory Effort / Characteristics Non-Labored Respiratory Depth Normal Blood Pressure 176/90 H Blood Pressure [Left Arm] 164/82 H Blood Pressure Mean 118 Blood Pressure Mean [Left Arm] 109 Blood Pressure Position Sitting Blood Pressure Position [Left Arm] Pulse Oximetry 98 98 97 Oxygen Delivery Method Room Air Room Air Room Air 02/23/19 04:48 02/23/19 05:25 Temperature Temperature Source Sepsis Recent Fever Within 48 Hours Sepsis New/Unexplained Change in Mental Status Sepsis Action Taken by Nursing Pulse Rate [Finger] 58 L 56 L Respiratory Rate 18 17 Respiratory Effort / Characteristics Non-Labored Respiratory Depth Normal Blood Pressure Blood Pressure [Left Arm] 173/85 H 195/100 H Blood Pressure Mean Blood Pressure Mean [Left Arm] 114 131 Blood Pressure Position Blood Pressure Position [Left Arm] Lying Pulse Oximetry 97 98 Oxygen Delivery Method Room Air Room Air HEENT: Head - normocephalic and atraumatic Pupils are equal, round, and reactive to light. Extraocular eye muscles are intact, very mild scleral icterus. Nose - moist nasal mucosa without discharge. Mouth - moist buccal mucosa. Oropharynx is nonerythematous and there is no tonsillar exudate or edema noted. Neck: Supple; no cervical lymphadenopathy or JVD. Heart: Regular rate and rhythm. There is a normal S1 and S2 with no murmurs, clicks, or gallops appreciated. Lungs: Clear to auscultation bilaterally with no wheezes, rales, or rhonchi. Abdomen: Soft, nondistended, with good bowel sounds. There are no palpable pulsatile masses or hepatosplenomegaly. There is no guarding, rigidity, or rebound noted. Exquisite epigastric pain, moderate RUQ pain. Extremities: No evidence of cyanosis, clubbing, or edema. There are easily palpable peripheral pulses. Skin: warm and dry with good turgor and no rashes. Very mild jaundice. Course 0305: The patient was evaluated in room A10. A complete history and physical examination were performed. Nursing notes and previous electronic medical records were reviewed. IV lock was established and labs were drawn as above. He will go for CT scan of his abdomen/pelvis. 0442: I reevaluated and updated the patient. He is still in pain. I discussed results of his labs with him and his . We are waiting for CT. 0458: Sodium Chloride 500 mls @ 125 mls/hr IV 0459: Ondansetron HCl 4mg IV, Hydromorphone HCl 0.5 mg IV 0511: Upon reevaluation, the patient is stable. He is much more comfortable. I discussed the findings and the treatment plan with the patient. He expresses agreement and understanding. I spoke with Dr. Avalos of the [facility] Hospitalist Service. The patient will be evaluated for further management. Consultations Consultation #1: I reviewed the patient's case with Dr. Avalos - Hospitalist, [facility]. He will evaluate the patient for further management. Time: 05:11 Administered Medications Aspirin (Ecotrin Ectab) 81 mg PO DAILY GRZEGORZ Stop: 03/25/19 08:59 Last Admin: 02/23/19 12:51 Dose: 81 mg Documented by: [id number] Enoxaparin Sodium (Lovenox) 40 mg SQ QAM GRZEGORZ Stop: 03/25/19 11:29 Last Admin: 02/23/19 12:43 Dose: 40 mg Documented by: [id number] Lactated Ringer's (Lr) 1,000 mls @ 125 mls/hr IV .Q8H GRZEGORZ Stop: 03/25/19 05:59 Last Admin: 02/23/19 10:12 Dose: 125 mls/hr Documented by: [id number] Ioversol (Optiray 320 100ml) 100 ml IV ONCE PRN PRN Reason: Interaction Checking Stop: 02/27/19 04:49 Last Admin: 02/23/19 04:50 Dose: 93 ml Documented by: [id number] Morphine Sulfate (Morphine Sulfate) 3 mg IV Q3H PRN PRN Reason: Pain Stop: 03/09/19 05:54 Last Admin: 02/23/19 13:21 Dose: 3 mg Documented by: [id number] Admin: 02/23/19 07:54 Dose: 3 mg Documented by: [id number] Pantoprazole Sodium (Protonix) 40 mg PO DAILY GRZEGORZ Stop: 03/25/19 08:59 Last Admin: 02/23/19 12:51 Dose: 40 mg Documented by: [id number] Tamsulosin HCl (Flomax) 0.4 mg PO DAILY GRZEGORZ Stop: 03/25/19 08:59 Last Admin: 02/23/19 12:51 Dose: 0.4 mg Documented by: [id number] Discontinued Medications Hydromorphone HCl (Dilaudid) 0.5 mg IV NOW STA Stop: 02/23/19 04:43 Last Admin: 02/23/19 04:59 Dose: 0.5 mg Documented by: [id number] Sodium Chloride (Nss) 500 mls @ 125 mls/hr IV .Q4H GRZEGORZ Stop: 03/25/19 04:44 Last Admin: 02/23/19 09:57 Dose: Not Given Documented by: [id number] Infusion: 02/23/19 09:57 Dose: 0 mls/hr Documented by: [id number] Admin: 02/23/19 04:58 Dose: 125 mls/hr Documented by: [id number] Lisinopril (Zestril) 5 mg PO NOW ONE Stop: 02/23/19 05:56 Last Admin: 02/23/19 06:59 Dose: 5 mg Documented by: [id number] Ondansetron HCl (Zofran) 4 mg IV NOW STA Stop: 02/23/19 04:43 Last Admin: 02/23/19 04:59 Dose: 4 mg Documented by: [id number] Medical Decision Making Differential Diagnosis Differential diagnoses include: hepatitis, pancreatitis, transaminitis, retained common bile duct stone. Medical Records Attestation: I reviewed the patient's medical records. Home Medications Current Medication List: was personally reviewed by me Laboratory Data Attestation: I reviewed the patient's lab results. Result diagrams: 02/23/19 03:18 02/23/19 03:18 Lab Results 02/23/19 02/23/19 02/23/19 Range/Units 03:18 03:18 03:25 WBC 9.72 (4.8-10.8) K/uL RBC 4.29 L (4.7-6.1) M/uL Hgb 12.8 L (14.0-18.0) g/dL Hct 38.0 L (42-52) % MCV 88.6 (80-100) fL MCH 29.8 (25-34) pg MCHC 33.7 (32-36) g/dL RDW Std Deviation 44.5 (36.4-46.3) fL RDW Coeff of Juan 13.8 (11.5-14.5) % Plt Count 218 (130-400) K/uL MPV 9.3 (7.4-10.4) fL Immature Gran % (Auto) 0.2 % Neut % (Auto) 81.1 % Lymph % (Auto) 9.8 % [place] % (Auto) 8.0 % Eos % (Auto) 0.7 % Baso % (Auto) 0.2 % Immature Gran # (Auto) 0.02 (0.00-0.02) K/uL Neut # (Auto) 7.88 H (1.4-6.5) K/uL Lymph # (Auto) 0.95 L (1.2-3.4) K/uL [place] # (Auto) 0.78 H (0.11-0.59) K/uL Eos # (Auto) 0.07 (0-0.5) K/uL Baso # (Auto) 0.02 (0-0.2) K/uL Sodium 140 (136-145) mmol/L Potassium 4.0 (3.5-5.1) mmol/L Chloride 107 (98-107) mmol/L Carbon Dioxide 28 (21-32) mmol/L Anion Gap 5.0 (3-11) BUN 15 (7-18) mg/dl Creatinine 0.97 (0.6-1.4) mg/dl Est Cr Clr Drug Dosing 30.8 ml/min Est GFR ( Amer) 84.5 Est GFR (Non-Af Amer) 72.9 BUN/Creatinine Ratio 15.5 (10-20) Glucose 104 H (70-99) mg/dl Calcium 9.1 (8.5-10.1) mg/dl Total Bilirubin 7.9 H (0.2-1) mg/dl AST 216 H (15-37) U/L ALT 306 H (12-78) U/L Alkaline Phosphatase 562 H (45-117) U/L Total Protein 7.1 (6.4-8.2) gm/dl Albumin 3.5 (3.4-5.0) gm/dl Globulin 3.6 (2.5-4.0) gm/dl Albumin/Globulin Ratio 1.0 (0.9-2) Lipase 81324 H (73-393) U/L Urine Color Dark Yellow Urine Appearance Clear (Clear) Urine pH 5.0 (4.5-7.5) Ur Specific [place] 1.010 (1.000-1.030) Urine Protein Negative (Negative) Urine Glucose (UA) Negative (Negative) Urine Ketones Negative (Negative) Urine Blood Negative (Negative) Urine Nitrite Negative (Negative) Urine Bilirubin 1+ H (Negative) Urine Urobilinogen Negative (Negative) Ur Leukocyte Esterase Negative (Negative) Imaging Data Radiologist's Impression: Radiology results as stated below per my review and the radiologist's interpretation: CT ABDOMEN & PELVIS With Contrast: Mild pancreatitis at the uncinate process of the pancreas. No bowel obstruction or wall thickening. Colonic diverticulosis. Radiologist: Go Samuel MD. Blood Pressure Blood Pressure Findings: Elevated blood pressure Blood Pressure Disposition: further management by hospitalist MDM Narrative The patient is an 83 year old male who presents to the emergency department with complaints of worsening abdominal pain beginning at 2230 yesterday. The patient underwent cholecystectomy 2 months ago. He did well for approximately 6 weeks following that then developed some increasing epigastric pain. He was evaluated by his doctor and had negative laboratory testing according to the patient. He then had an ultrasound approximately 2-3 weeks ago. I reviewed the results of this and it was normal. The patient's pain has escalated tonight. He has a lipase greater than 39,000 and a total bilirubin of 7.6. CT scan of the abdomen/pelvis shows inflammatory changes about the pancreas. The patient is hemodynamic is stable and his pain is controlled. I discussed the case with the [facility] Hospitalist and they will evaluate for further management. Impression & Plan Pancreatitis Discharge Plan Visit Data *Final* Discharge Date/Time: 02/23/19 08:29 Chief Complaint: Abdominal Pain Stated Complaint: PAIN IN ABD ED Provider: Maria Teresa Mcfarland Discharge Problem: Pancreatitis Patient Disposition: Admitted As Inpatient Discharge Instructions Interventions: ED Discharge Assessment Last Done: 02/23/19 08:29 Discharge Problem: Pancreatitis Qualifiers: Chronicity: acute Pancreatitis type: unspecified pancreatitis type Acute pancreatitis complication: unspecified Qualified Code(s): K85.90 - Acute pancreatitis without necrosis or infection, unspecified The scribe's documentation has been prepared under my direction and personally reviewed by me in its entirety. I confirm that the note above accurately reflects all work, treatment, procedures, and medical decision making performed by me.
--- NOTE | 2019-02-23 16:30 | Gastrointestinal Consultation ---
Date of Consultation February 23, 2019 Assessment & Plan (1) Pancreatitis: (2) Gallstone pancreatitis: Recommend MRCP now for further evaluation Due to probable distal bile duct obstruction, I would recommend Zosyn 3.375g IV q8 hours If MRCP +, will need ERCP in the AM I will try to arrange that at [facility], however, if there is no availability of physician to perform this, the patient may need to be transferred to a tertiary center. I will follow his clinical course and make further recommendations as needed. (3) Abnormal CT scan, gastrointestinal tract: (4) Abdominal discomfort, epigastric: History of Present Illness Reason for Consultation: Gallstone pancreatitis Attending Physician: Olman Avalos History of Present Illness Juan Fung presented to the ER today, with complaints of abdominal pain. He states that he underwent a lap jb on 12/17/2018, by Dr. Hannah, and did quite well. He states approximately 6 weeks post-op, he began experiencing intermittent abdominal pain, 5/10 in intensity, non-radiating in the epigastrum and RUQ. He described intermittent nausea as well. He did have a normal RUQ US in early February, however, he continued to have symptoms. He states that his symptoms became much worse over the past 24 hours, and he presented to the ER. Upon arrival, he was noted to have a significantly elevated lipase (>39,000), elevated liver panel, and a CT scan of the abd/pelvis showed intra and extrahepatic biliary ductal dilation and a probable stone at the distal CBD. I was consulted to see the patient. He states that his pain has improved with narcotic analgesics, but still rates it as 2/10 in intensity. He denies any fevers, chills, nausea or vomiting at present. He denies any further complaints. Allergies Allergy/AdvReac Type Severity Reaction Status Date / Time adhesive Allergy Mild SKIN Verified 02/23/19 04:02 REDNESS No Known Drug Allergies AdvReac Unknown Unknown Verified 02/23/19 04:02 mylan brand HTN AdvReac Tachycardia Uncoded 02/23/19 07:04 Home Medications Home Medications Medication Instructions Recorded Confirmed Type Men's Multivitamin 1 tab PO DAILY 12/16/18 02/23/19 History aspirin [Aspir-81] 81 mg PO DAILY 12/16/18 02/23/19 History calcium carbonate [Calcium 600] 600 mg PO BID 12/16/18 02/23/19 History clindamycin HCl [Cleocin HCl] 600 mg PO UD 12/16/18 02/23/19 History lisinopril 10 0.5 tab PO DAILY #45 tab 12/26/18 02/23/19 Rx mg-hydrochlorothiazide 12.5 mg tablet tamsulosin 0.4 mg capsule 0.4 mg PO DAILY #90 cap 01/29/19 02/23/19 Rx omeprazole 20 mg capsule,delayed 20 mg PO DAILY #30 cap 02/06/19 02/23/19 Rx release Patient History Medical History Anemia (Acute) Angioma (Acute) Hypertension (Acute) Palpitations (Acute) Pleural plaque (Acute) Pyogenic arthritis of right knee joint (Acute) Seborrheic keratosis (Acute) Transient amnesia (Acute) BPH (benign prostatic hyperplasia) Acute cholecystitis (Acute) Colon cancer (Chronic) Hypertension (Chronic) Osteoarthritis (Chronic) TIA (transient ischemic attack) Pt denies BPH (benign prostatic hyperplasia) Surgical History History of colon resection (Chronic) Hx of cholecystectomy S/P TKR (total knee replacement) Right X 2 S/P arthroscopy of shoulder Left S/P cataract extraction Bilateral S/P hip replacement Left S/P laparoscopic cholecystectomy 12/17/18 Dr. Vinod Presley Social History Preferred Language: Dutch Communication Ability: Effective Executive Vice President Required: No Beliefs That Will Affect Care: None marital status: Current Living Situation: Spouse Other Information That Helps Us Care for You: No Feels Safe at Home: Yes Safety Concerns: Feels Safe At This Time Smoking Status: Former smoker Tobacco Type: pipe and cigars ; Do You Dip or Chew Tobacco: No ; Second Hand Exposure: No ; Tobacco Cessation Education Requested by Patient: Yes Hx Alcohol Use: No Hx Substance Use: No Review of Systems Constitutional: no fever and no chills Eyes: no eye pain and no itchy eyes Ear, Nose, Mouth, Throat: no dysphagia and no pain with swallowing Respiratory: no cough and no dyspnea Cardiovascular: no chest pain and no dyspnea Gastrointestinal: as per Subjective / HPI Genitourinary: no dysuria and no hematuria Musculoskeletal: no joint pain and no myalgia Integumentary: no rash Neurologic: no seizure-like activity and no syncope Psychiatric: no depression and no anxiety Hematologic / Lymphatic: no easy bleeding and no easy bruising Allergy / Immunological: no cough, no dyspnea and no rash Physical Exam Constitutional: WD/WN, vitals as above Respiratory: normal respiratory effort, lungs clear to auscultation Cardiovascular: RRR, no murmur, no edema Gastrointestinal (Abdomen): Inspection/Auscultation: normal bowel sounds; abdomen not distended Percussion/Palpation: + abdomen tender (RUQ and epigastrum) and abdomen soft; no guarding and abdomen not rigid Musculoskeletal: Head/Neck/Chest: normocephalic, head atraumatic and neck supple Skin: no rashes, warm and dry Results & Data Vital Signs (Past 12 Hours) Vital Signs Temp Pulse Resp BP BP Pulse Ox 02/23/19 15:00 36.4 C L 86 18 130/73 95 02/23/19 12:00 36.5 C 61 18 166/85 H 91 02/23/19 08:16 56 L 16 149/82 H 94 02/23/19 07:25 58 L 16 146/99 H 98 02/23/19 06:48 56 L 23 168/89 H 92 02/23/19 06:04 60 22 194/95 H 95 02/23/19 05:25 56 L 17 195/100 H 98 02/23/19 04:48 58 L 18 173/85 H 97 PG Care Time/CCT Total # of Minutes Spent Total Time Spent with Patient: Total time spent is greater than 50% in coordination of care (as documented) at patient's floor/unit and/or counseling patient: (1) Pancreatitis Acute pancreatitis complication: unspecified Chronicity: acute Pancreatitis type: unspecified pancreatitis type Qualified Code(s): K85.90 - Acute pancreatitis without necrosis or infection, unspecified
[2019-02-23] MEDS: FAMOTIDINE 20 MG in SYRINGE 3 ML IV SCH (16:35)
[2019-02-23 16:40] LABS: Chol HDL Ratio 3; Cholesterol 154 mg/dl (0-200); HDL Cholesterol 51 mg/dl; LDL Cholesterol Calculated 83 mg/dl; Triglycerides 102 mg/dl (0-150); VLDL Cholesterol 20 mg/dl
[2019-02-23] MEDS ORDERED: PIPERACILL/TAZOBAC CONSULT ACTIVE PRN (16:51)
[2019-02-23] MEDS ORDERED: PIPERACILLIN/TAZOBACTAM 3.375 GM in DEXTROSE 5% 100 ML IV SCH (17:00)
[2019-02-23] MEDS ORDERED: PIPERACILLIN/TAZOBACTAM 3.375 GM in DEXTROSE 5% 100 ML IV ONE (17:30)
--- NOTE | 2019-02-23 20:04 | Magnetic Resonance Report ---
Study: MRCP HISTORY: Pancreatitis FINDINGS: Liver and spleen appear uniform. Mild infiltrative change in the peripancreatic fat. This a ppearance suggests a component of pancreatitis. No evidence for abscess collection or pseudocyst formation. The MRCP component of the study shows no significant distention of the pancreatic or biliary ductal s ystem. There is a linear density appearing to be within the common bile duct, although this is felt t o represent low insertion of the residual cystic duct. No definite filling defects are noted within the common bile duct. Bowel pattern is nonobstructive. Small diverticulum of the descending component of the duodenal sweep . Several small renal cortical cysts. IMPRESSION:: 1. Mild pancreatitis. 2. Prior cholecystectomy. 3. No evidence for abscess collection or pseudocyst at the current time. 4. No significant and are only minimal fullness of the biliary ductal system. Normal pancreatic duct. 5. No well-defined defect with in the distal common bile duct as was noted on the patient's prior CT exam. Electronically signed by: Vinod Alaniz M.D. 02/23/2019 8:02 PM
[2019-02-23] MEDS: PIPERACILLIN/TAZOBACTAM 3.375 GM in DEXTROSE 5% 100 ML IV SCH (22:06)
[2019-02-24] MEDS: PIPERACILLIN/TAZOBACTAM 3.375 GM in DEXTROSE 5% 100 ML IV SCH ×4 (05:36→21:32)
[2019-02-24 07:17] LABS: Creatinine Clr Calc Pharmacy 72.8 ml/min; Est GFR (African American) 98.6; Est GFR (Non-African American) 85.1
[2019-02-24] MEDS ORDERED: INDOMETHACIN 50 MG SUPP PR ONE (08:40)
[2019-02-24] MEDS ORDERED: fentaNYL citrate 100 MCG/2 ML VIAL ONE (08:46)
[2019-02-24] MEDS ORDERED: ONDANSETRON INJ 2 MG/ML 2 ML VIAL ONE (08:46)
[2019-02-24] MEDS ORDERED: PROPOFOL IV EMULSION 10 MG/ML 20 ML VIAL IV ONE (08:46)
[2019-02-24] MEDS ORDERED: LIDOCAINE HCL 2% 2 ML VIAL/AMP(20MG/ML) INFIL ONE (08:46)
[2019-02-24 08:49] LABS: Albumin Level 2.9 gm/dl (3.4-5.0); BUN Creatinine Ratio 27.1 (10-20); Calcium 8.7 mg/dl (8.5-10.1); Creatinine Clr Calc Pharmacy 70.9 ml/min; Est GFR (African American) 97.6; Est GFR (Non-African American) 84.2; Potassium 3.5 mmol/L (3.5-5.1)
--- NOTE | 2019-02-24 08:50 | History & Physical Bridge Note ---
Date of Service February 24, 2019 History & Physical Bridge Note I have examined the patient, reviewed the History & Physical and in the interval since the performance of the History & Physical I have noted the following changes of clinical significance: no changes noted ERCP today for CBD stones. I explained the risk, benefits and alternatives and he agreed.
[2019-02-24 08:55] LABS: Albumin Globulin Ratio 0.9 (0.9-2); Bilirubin,Total 3.5 mg/dl (0.2-1); Globulin 3.4 gm/dl (2.5-4.0); Total Protein 6.3 gm/dl (6.4-8.2)
--- NOTE | 2019-02-24 09:12 | Anesthesiology Consultation ---
Date of Service February 24, 2019 Assessment & Plan (1) Encounter for pre-operative examination: Chart Review Chart Review: Acceptable Risk for Surgery and Patient NOT seen in Pre Admission Testing Consults Requested none ASA ASA3 Proposed Anesthesia Anesthesia Type: General History Surgery Operation Date: 02/24/19 09:20 Proposed Procedures p Endoscopic Retrograde Cholangiopancreatogram - Alfredo Donovan MD Height/Weight Height: 5 ft 8 in Weight: 77.7 kg Allergies Allergy/AdvReac Type Severity Reaction Status Date / Time adhesive Allergy Mild SKIN Verified 02/23/19 04:02 REDNESS No Known Drug Allergies AdvReac Unknown Unknown Verified 02/23/19 04:02 mylan brand HTN AdvReac Tachycardia Uncoded 02/23/19 07:04 Medications Home Medications Medication Instructions Recorded Confirmed Last Taken Men's Multivitamin 1 tab PO DAILY 12/16/18 02/23/19 02/22/19 aspirin [Aspir-81] 81 mg PO DAILY 12/16/18 02/23/19 02/22/19 calcium carbonate [Calcium 600] 600 mg PO BID 12/16/18 02/23/19 02/22/19 clindamycin HCl [Cleocin HCl] 600 mg PO UD 12/16/18 02/23/19 Unknown lisinopril 10 0.5 tab PO DAILY #45 tab 12/26/18 02/23/19 02/22/19 mg-hydrochlorothiazide 12.5 mg tablet tamsulosin 0.4 mg capsule 0.4 mg PO DAILY #90 cap 01/29/19 02/23/19 02/22/19 omeprazole 20 mg capsule,delayed 20 mg PO DAILY #30 cap 02/06/19 02/23/19 02/22/19 release Active Medications Generic Name Dose Route Start Last Admin Trade Name Freq PRN Reason Stop Dose Admin Aspirin 81 mg 02/23/19 09:00 02/23/19 12:51 Ecotrin Ectab PO 03/25/19 08:59 81 mg DAILY GRZEGORZ Administration Lactated Ringer's 1,000 mls @ 125 mls/hr 02/23/19 06:00 02/24/19 08:39 Lr IV 03/25/19 05:59 Infused .Q8H GRZEGORZ Infusion Famotidine 20 mg/ Syringe 5 mls @ 2.5 mls/min 02/23/19 16:15 02/23/19 16:35 IV 03/25/19 16:14 2.5 mls/min DAILY GRZEGORZ Administration Piperacillin Sod/Tazobactam 115 mls @ 28.75 mls/hr 02/23/19 22:00 02/24/19 05:36 Sod 3.375 gm/ Dextrose IV 03/05/19 21:59 28.8 mls/hr Q8H GRZEGORZ Administration Protocol Ioversol 100 ml 02/23/19 04:50 02/23/19 04:50 Optiray 320 100ml IV 02/27/19 04:49 93 ml ONCE PRN Administration Interaction Checking Morphine Sulfate 3 mg 02/23/19 05:55 02/23/19 13:21 Morphine Sulfate IV 03/09/19 05:54 3 mg Q3H PRN Administration Pain Tamsulosin HCl 0.4 mg 02/23/19 09:00 02/23/19 12:51 Flomax PO 03/25/19 08:59 0.4 mg DAILY GRZEGORZ Administration NPO Date Last Intake of Fluids: 02/24/19 Time Last Intake of Fluids: 08:30 Last Intake of Fluids Comment: sip of water Date Last Intake of Solids: 02/22/19 Time Last Intake of Solids: 17:30 Last Intake of Solids Comment: meds Past Medical History Medical History Anemia (Acute) Angioma (Acute) Hypertension (Acute) Palpitations (Acute) Pleural plaque (Acute) Pyogenic arthritis of right knee joint (Acute) Seborrheic keratosis (Acute) Transient amnesia (Acute) BPH (benign prostatic hyperplasia) Acute cholecystitis (Acute) Colon cancer (Chronic) Hypertension (Chronic) Osteoarthritis (Chronic) TIA (transient ischemic attack) Pt denies BPH (benign prostatic hyperplasia) Past Surgical History Surgical History History of colon resection (Chronic) Hx of cholecystectomy S/P TKR (total knee replacement) Right X 2 S/P arthroscopy of shoulder Left S/P cataract extraction Bilateral S/P hip replacement Left S/P [facility] Social History Smoking Status: Former smoker tobacco type: pipe and cigars Do You Dip or Chew Tobacco: No Hx Alcohol Use: No Hx Substance Use: No Physical Exam Vital Signs Last Vital Signs Temp 36.8 C 02/24/19 07:37 Pulse 53 L 02/24/19 07:37 Resp 18 02/24/19 07:37 BP 166/67 H 02/24/19 07:37 Pulse Ox 91 02/24/19 07:37 Testing Laboratory Results 02/23/19 03:18 02/24/19 06:05 PT 9.8 Seconds (9.0-12.0) 02/23/19 09:21 INR 1.0 (0.9-1.1) 02/23/19 09:21 Urine Color Dark Yellow 02/23/19 03:25 Urine Appearance Clear (Clear) 02/23/19 03:25 Urine pH 5.0 (4.5-7.5) 02/23/19 03:25 Ur Specific [place] 1.010 (1.000-1.030) 02/23/19 03:25 Urine Protein Negative (Negative) 02/23/19 03:25 Urine Glucose (UA) Negative (Negative) 02/23/19 03:25 Urine Ketones Negative (Negative) 02/23/19 03:25 Urine Nitrite Negative (Negative) 02/23/19 03:25 Ur Leukocyte Esterase Negative (Negative) 02/23/19 03:25
[2019-02-24] MEDS ORDERED: INDOMETHACIN 50 MG SUPP PR SCH (09:15)
--- NOTE | 2019-02-24 10:16 | Operative Report ---
Post Operative Report Pre & Post Diagnosis Operation Date: 02/24/19 09:20 Pre-Op Diagnosis: ACUTE PANCREATITIS Post-Op Diagnosis: ACUTE PANCREATITIS Procedure Operation Date: 02/24/19 09:20 Actual Procedures p Endoscopic Retrograde Cholangiopancreatogram - Alfredo Donovan MD Surgeon Alfredo Donovan MD Ship/Rec/Doc Control None Estimated Blood Loss 2 Findings See Below (CBD stones removed, CBD and PD stent placed after sphincterotomy and balloon dilation) Specimens None Description of Procedure ERCP I attest to the content of the Intraoperative Record and any orders documented therein. Any exceptions are noted below.
[2019-02-24] MEDS ORDERED: SUCCINYLCHOLINE CHLORIDE 20 MG/ML 10 ML VIAL ONE (10:33)
--- NOTE | 2019-02-24 10:38 | GI REPORT ---
Patient Name: Juan Fung Procedure Date: 02/24/2019 8:53 AM Date of : 1935 Admit Type: Inpatient Age: 83 Gender: Male Attending MD: Alfredo Donovan MD Procedure: ERCP Providers: Alfredo Donovan MD Referring MD: Olman Avalos M.d., Dustin G. Case, DO Indications: Bile duct stone on Computed Tomogram Scan, For therapy of bile duct stone(s), Jaundice, Elevated liver enzymes, Gallstone associated acute pancreatitis Medicines: General Anesthesia Complications: No immediate complications. Estimated Blood Loss: Estimated blood loss: none. Procedure: Pre-Anesthesia Assessment: - Prior to the procedure, a History and Physical was performed, and patient medications and allergies were reviewed. The patient is competent. The risks and benefits of the procedure and the sedation options and risks were discussed with the patient. All questions were answered and informed consent was obtained. Patient identification and proposed procedure were verified by the physician and the nurse in the procedure room. Mental Status Examination: alert and oriented. Airway Examination: normal oropharyngeal airway and neck mobility. Respiratory Examination: clear to auscultation. CV Examination: normal. ASA Grade Assessment: II - A patient with mild systemic disease. After reviewing the risks and benefits, the patient was deemed in satisfactory condition to undergo the procedure. The anesthesia plan was to use general anesthesia. Immediately prior to administration of medications, the patient was re-assessed for adequacy to receive sedatives. The heart rate, respiratory rate, oxygen saturations, blood pressure, adequacy of pulmonary ventilation, and response to care were monitored throughout the procedure. The physical status of the patient was re-assessed after the procedure. After obtaining informed consent, the scope was passed under direct vision. Throughout the procedure, the patient's blood pressure, pulse, and oxygen saturations were monitored continuously. The SCOPE was introduced through the mouth, and advanced to the duodenum and used to inject contrast into the bile duct. The ERCP was accomplished without difficulty. The patient tolerated the procedure well. Findings: A coating machine feeder film of the abdomen was obtained. Surgical clips, consistent with a previous cholecystectomy, were seen in the area of the right upper quadrant of the abdomen. The esophagus was successfully intubated under direct vision. The scope was advanced to a normal major papilla in the descending duodenum without detailed examination of the pharynx, larynx and associated structures, and upper GI tract. The upper GI tract was grossly normal. The major papilla was flat, small and contained a benign appearing stenosis. The ventral pancreatic duct was inadvertently cannulated with the Fusion OMNI sphincterotome without any complications. The wire was kept in place to aid in biliary ductal cannulation (double wire technique). A 0.035 inch straight standard Acrobat wire was passed into the biliary tree. The Fusion OMNI sphincterotome was passed over the guidewire and the bile duct was then deeply cannulated. Contrast was injected. I personally interpreted the bile duct images. Ductal flow of contrast was adequate. Image quality was adequate. Contrast extended to the main bile duct. The main bile duct was moderately dilated. The largest diameter was 9 mm. The lower third of the main duct contained one stone. Opacification of the left and right hepatic ducts and all intrahepatic branches was seen. Biliary sphincterotomy was made with a monofilament traction (standard) sphincterotome using ERBE electrocautery. There was no post-sphincterotomy bleeding. Dilation of the common bile duct with an 8 mm balloon dilator was successful. The biliary tree was swept with an 11.5 mm balloon starting at the bifurcation. Sludge was swept from the duct. One stone was removed. No stones remained. One 5 Fr by 9 cm plastic pancreatic stent with a full external pigtail and no internal flaps was placed into the common bile duct. Clear fluid flowed through the stent. The stent was in good position. One 10 Fr by 7 cm plastic biliary stent with a single external flap and a single internal flap was placed into the common bile duct. Bile flowed through the stent. The stent was in good position. Indomethacin 100 mg was given via suppository to decrease the risk of post-ERCP pancreatitis (PEP). Impression: - The major papilla was flat, small and stenotic. - The entire main bile duct was moderately dilated. - Choledocholithiasis was found. Complete removal was accomplished by biliary sphincterotomy, sphincteroplasty and balloon extraction. - One plastic pancreatic stent was placed into the common bile duct. - One plastic biliary stent was placed into the common bile duct. Recommendation: - [facility]. - Avoid aspirin and nonsteroidal anti-inflammatory medicines for 5 days. - Clear liquid diet today, then advance as tolerated to advance diet as tolerated if his underlying pancreatitis is improving. - Repeat ERCP in 3- 4 weeks to remove stents. - Return to referring physician. Alfredo Donovan MD 02/24/2019 10:37:54 AM This report has been signed electronically. Note Initiated On: 02/24/2019 8:53 AM Number of Addenda: 0 I attest to the content of the Intraoperative Record and orders documented therein, exceptions below {[id number]}
[2019-02-24] MEDS ORDERED: GLUCAGON FOR INJ 1 MG VIAL ONE (10:43)
--- NOTE | 2019-02-24 10:50 | Fluoroscopy Report ---
FL ERCP biliary ductal CLINICAL HISTORY: Pancreatitis. Possible distal common bile duct calculus. COMPARISON STUDY: CT scan dated 02/23/2019, MRCP dated 02/23/2019 FLUOROSCOPY TIME: 4 minutes 26 seconds. NUMBER OF FLUOROSCOPIC IMAGES: 21 FINDINGS: The pancreatic duct was cannulated. The common bile duct was cannulated. A sphincterotomy a ppears to have been performed. The common bile duct was swept with a balloon catheter. A biliary sten t was placed. IMPRESSION: Fluoroscopic spot images obtained during ERCP in which a biliary enteric stent was place d Electronically signed by: Matthieu Ríos M.D. 02/24/2019 10:49 AM
--- NOTE | 2019-02-24 11:37 | Anesthesiology Progress Note ---
Date of Service February 24, 2019 Anesthesia Post Procedure Vital Signs Vital Signs: Temp Pulse Pulse Pulse Resp BP BP 02/24/19 11:29 36.7 C 55 L 18 157/81 H 02/24/19 11:05 36.4 C L 55 L 17 145/77 H 02/24/19 10:55 55 L 15 145/76 H 02/24/19 10:45 54 L 21 153/79 H 02/24/19 10:35 56 L 18 159/80 H 02/24/19 10:25 36.2 C L 69 13 164/84 H 02/24/19 07:37 36.8 C 53 L 18 166/67 H 02/24/19 07:35 36.7 C 53 L 18 132/73 02/24/19 04:00 36.5 C 70 20 145/74 H 02/24/19 00:00 64 02/23/19 23:46 36.5 C 60 19 133/72 02/23/19 19:38 36.7 C 61 19 136/72 02/23/19 17:06 70 02/23/19 15:00 36.4 C L 86 18 130/73 02/23/19 12:00 36.5 C 61 18 166/85 H Pulse Ox 02/24/19 11:29 94 02/24/19 11:05 95 02/24/19 10:55 96 02/24/19 10:45 100 02/24/19 10:35 100 02/24/19 10:25 97 02/24/19 07:37 91 02/24/19 07:35 96 02/24/19 04:00 92 02/24/19 00:00 02/23/19 23:46 95 02/23/19 19:38 94 02/23/19 17:06 02/23/19 15:00 95 02/23/19 12:00 91 Pain Intensity Upper Medial Abdomen: Pain Intensity: 1 Transfer of Care Handoff Completed per policy Notes Mental Status: alert / awake / arousable Patient Amnestic to Procedure: Yes Nausea / Vomiting: adequately controlled Pain: adequately controlled Airway Patency, RR, SpO2: stable & adequate BP & HR: stable & adequate Hydration State: stable & adequate Anesthetic Complications: no major complications apparent and Pt Satisfied with anesthetic care
--- NOTE | 2019-02-24 12:50 | Hospitalist Progress Note ---
Date of Service February 24, 2019 Assessment & Plan (1) Pancreatitis: Continue medsurge with tele. via ERCP removed one stone and moderate sludge, put the stent. Patient had history of Acute cholecystitis treated with a Lap choley performed by Dr. Hannah 12/17. Pain management. IVF 80 cc/hr and stop after 500 cc. Plan to start clears and advance to low fat diet , tomorrow. Trend lipase : 86399-->2371 (2) Anemia: Patient appears to have chronic anemia. will be monitoring his hemoglobin in AM. 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 (4) Hypertension: BP is improving,but will continue monitoring and add antihypertensive agent if BP remains elevated. Patient is currently only on a diuretic.Hold diuretic for now and restart tomorrow. (5) History of colon resection: Patient had colon cancer. Patient had R partial pablo-colectomy performed by Dr Marie in [place] on 11/06/18 due to colon cancer DVT : lovenox Subjective Patient seen and examined at the bedside. Status post ERCP. CBD stones removed, CBD and PD stent placed after sphincterotomy and balloon dilation by Dr. Rodriguez. Patient tolerated procedure well, afebrile. Her lipase went down from [phone]. Patient said he feels much better and his pain is improving. Patient denies fever chills chest pain shortness of breath headache abdominal pain frequency urgency, jaundice hemoptysis hematemesis hematuria melena sweating right upper quadrant pain. Review of Systems Review of Systems: All systems reviewed & are unremarkable except as noted in HPI & below Physical Exam Constitutional: WD/WN, vitals as above well developed Eyes: PERRL, conjunctivae normal, anicteric sclerae ENMT: external ear and nose normal, oropharynx normal Neck: trachea midline, no thyromegaly Respiratory: normal respiratory effort, lungs clear to auscultation Cardiovascular: RRR, no murmur, no edema Chest (Breasts): normal inspection/palpation of breasts Gastrointestinal (Abdomen): Inspection/Auscultation: abdomen normal to inspection Percussion/Palpation: + abdomen tender (midly tender, no guarding, no rebound) Musculoskeletal: no cyanosis or clubbing, extremities motor strength 5/5 Skin: no rashes, warm and dry Neurologic: patellar DTR's 2+ bilat, sensation intact Psychiatric: A+Ox3, euthymic affect Genitourinary: no testicular masses, no penis abnormality Lymphatic: no cervical or axillary lymphadenopathy Results & Data Vital Signs (Past 12 Hours) Vital Signs Temp Pulse Pulse Resp BP BP Pulse Ox 02/24/19 12:00 55 L 18 158/70 H 94 02/24/19 11:29 36.7 C 55 L 18 157/81 H 94 02/24/19 11:05 36.4 C L 55 L 17 145/77 H 95 02/24/19 10:55 55 L 15 145/76 H 96 02/24/19 10:45 54 L 21 153/79 H 100 02/24/19 10:35 56 L 18 159/80 H 100 02/24/19 10:25 36.2 C L 69 13 164/84 H 97 02/24/19 07:37 36.8 C 53 L 18 166/67 H 91 02/24/19 07:35 36.7 C 53 L 18 132/73 96 02/24/19 04:00 36.5 C 70 20 145/74 H 92 PG Care Time/CCT Total # of Minutes Spent Total Time Spent with Patient: Total time spent is greater than 50% in coordination of care (as documented) at patient's floor/unit and/or counseling patient: (1) Pancreatitis Acute pancreatitis complication: unspecified Chronicity: acute Pancreatitis type: unspecified pancreatitis type Qualified Code(s): K85.90 - Acute pancreatitis without necrosis or infection, unspecified
[2019-02-24] MEDS ORDERED: SODIUM CHLORIDE 0.9% 500 ML IV SCH (13:15)
[2019-02-24] MEDS: LACTATED RINGER'S 1,000 ML IV SCH ×2 (13:31→13:32)
[2019-02-24] MEDS: FAMOTIDINE 20 MG in SYRINGE 3 ML IV SCH (13:55)
[2019-02-24] MEDS: LISINOPRIL 5 MG TAB PO SCH (13:56)
[2019-02-24] MEDS: ASPIRIN 81 MG ECTAB PO SCH (13:56)
[2019-02-24] MEDS: TAMSULOSIN HCL 0.4 MG CAP PO SCH (13:56)
[2019-02-25] MEDS: PIPERACILLIN/TAZOBACTAM 3.375 GM in DEXTROSE 5% 100 ML IV SCH ×3 (06:01→21:58)
[2019-02-25 08:14] LABS: Albumin Level 2.7 gm/dl (3.4-5.0); BUN Creatinine Ratio 20.9 (10-20); Calcium 8.5 mg/dl (8.5-10.1); Creatinine Clr Calc Pharmacy 75.7 ml/min; Est GFR (African American) 100.3; Est GFR (Non-African American) 86.5; Potassium 3.5 mmol/L (3.5-5.1)
[2019-02-25 08:19] LABS: Albumin Globulin Ratio 0.8 (0.9-2); Bilirubin,Total 2.5 mg/dl (0.2-1); Globulin 3.3 gm/dl (2.5-4.0)
[2019-02-25] MEDS: ASPIRIN 81 MG ECTAB PO SCH (10:15)
[2019-02-25] MEDS: TAMSULOSIN HCL 0.4 MG CAP PO SCH (10:15)
[2019-02-25] MEDS: LISINOPRIL 5 MG TAB PO SCH (10:15)
[2019-02-25] MEDS: FAMOTIDINE 20 MG in SYRINGE 3 ML IV SCH (10:19)
--- NOTE | 2019-02-25 14:33 | Hospitalist Progress Note ---
Date of Service February 25, 2019 Assessment & Plan (1) Pancreatitis: Continue medsurge with tele. POD #1 via ERCP removed one stone and moderate sludge, put the stent. Patient had history of Acute cholecystitis treated with a Lap choley performed by Dr. Hannah 12/17. Pain management. Patient tolerates clear liquids Trend lipase : 57250-->2371-->1597 DVT prophylaxis with Lovenox 40 mg SC daily Full code (2) Anemia: Patient appears to have chronic anemia. will be monitoring his hemoglobin in AM. 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 (4) Hypertension: BP is improving,but will continue monitoring and add antihypertensive agent if BP remains elevated. Patient is currently only on a diuretic.Hold diuretic for now and restart tomorrow. (5) History of colon resection: Patient had colon cancer. Patient had R partial pablo-colectomy performed by Dr Marie in [place] on 11/06/18 due to colon cancer DVT : lovenox Subjective Patient seen and examined at the bedside. Status POD#1 ERCP. Patient said he is doing much better. His abdominal pain is almost gone 1-2 on the scale from 0- 10. Patient said he tolerated well clear liquids. His lipase pending down from [phone]--[phone]. Patient denies fever chills chest pain shortness of breath headache abdominal pain frequency urgency, jaundice hemoptysis hematemesis hematuria melena sweating right upper quadrant pain. Review of Systems Review of Systems: All systems reviewed & are unremarkable except as noted in HPI & below Physical Exam Constitutional: WD/WN, vitals as above well developed Eyes: PERRL, conjunctivae normal, anicteric sclerae ENMT: external ear and nose normal, oropharynx normal Neck: trachea midline, no thyromegaly Respiratory: normal respiratory effort, lungs clear to auscultation Cardiovascular: RRR, no murmur, no edema Chest (Breasts): normal inspection/palpation of breasts Gastrointestinal (Abdomen): Inspection/Auscultation: abdomen normal to inspection Percussion/Palpation: abdomen soft Abdomen is only mildly tender. Bowel sounds positive in all 4 quadrants. There is no guarding and no rebound tenderness. Musculoskeletal: no cyanosis or clubbing, extremities motor strength 5/5 Skin: no rashes, warm and dry Neurologic: patellar DTR's 2+ bilat, sensation intact Psychiatric: A+Ox3, euthymic affect Genitourinary: no testicular masses, no penis abnormality Lymphatic: no cervical or axillary lymphadenopathy Results & Data Vital Signs (Past 12 Hours) Vital Signs Temp Pulse Resp BP BP Pulse Ox 02/25/19 12:00 36.3 C L 60 18 128/76 97 02/25/19 06:15 36.8 C 55 L 20 126/68 93 02/25/19 04:07 36.9 C 51 L 19 122/71 PG Care Time/CCT Total # of Minutes Spent Total Time Spent with Patient: Total time spent is greater than 50% in coordination of care (as documented) at patient's floor/unit and/or counseling patient: (1) Pancreatitis Acute pancreatitis complication: unspecified Chronicity: acute Pancreatitis type: unspecified pancreatitis type Qualified Code(s): K85.90 - Acute pancreatitis without necrosis or infection, unspecified
--- NOTE | 2019-02-25 16:25 | Gastroenterology Progress Note ---
Date of Service February 25, 2019 Assessment & Plan (1) Gallstone pancreatitis: Doing well post ERCP with sphincterotomy and stone extraction. Advance diet as tolerated Followup with Dr. Donovan for stent removal Subjective Patient feeling much better after ERCP with stone extraction yesterday. Tolerating PO intake. Had BM yesterday. Would like to advance his diet. No further complaints. Physical Exam Constitutional: WD/WN, vitals as above Respiratory: normal respiratory effort, lungs clear to auscultation Cardiovascular: RRR, no murmur, no edema Gastrointestinal (Abdomen): normal bowel sounds, soft, nontender, no hepatosplenomegaly Results & Data Vital Signs (Past 12 Hours) Vital Signs Temp Pulse Resp BP BP Pulse Ox 02/25/19 14:00 36.3 C L 53 L 18 147/73 H 97 02/25/19 12:00 36.3 C L 60 18 128/76 97 02/25/19 06:15 36.8 C 55 L 20 126/68 93 PG Care Time/CCT Total # of Minutes Spent Total Time Spent with Patient: Total time spent is greater than 50% in coordination of care (as documented) at patient's floor/unit and/or counseling patient:
[2019-02-26] MEDS: PIPERACILLIN/TAZOBACTAM 3.375 GM in DEXTROSE 5% 100 ML IV SCH ×2 (06:01→15:02)
[2019-02-26 06:52] LABS: Hematocrit (blood only) 32.2 % (42-52); Hemoglobin 10.7 g/dL (14.0-18.0); Mean Corpuscular Hgb Conc 33.2 g/dL (32-36); Mean Corpuscular Volume 90.4 fL (80-100); Platelet Count 181 K/uL (130-400); RDW Coefficient of Variation 13.8 % (11.5-14.5); RDW Standard Deviation 45.6 fL (36.4-46.3); Red Blood Count 3.56 M/uL (4.7-6.1); White Blood Count 6.02 K/uL (4.8-10.8)
[2019-02-26 07:28] LABS: Albumin Level 2.6 gm/dl (3.4-5.0); BUN Creatinine Ratio 13.6 (10-20); Calcium 8.4 mg/dl (8.5-10.1); Creatinine Clr Calc Pharmacy 73.8 ml/min; Est GFR (African American) 99.2; Est GFR (Non-African American) 85.6; Potassium 3.5 mmol/L (3.5-5.1)
[2019-02-26 07:35] LABS: Albumin Globulin Ratio 0.8 (0.9-2); Bilirubin,Total 1.9 mg/dl (0.2-1); Globulin 3.4 gm/dl (2.5-4.0)
[2019-02-26] MEDS: ASPIRIN 81 MG ECTAB PO SCH (08:15)
[2019-02-26] MEDS: TAMSULOSIN HCL 0.4 MG CAP PO SCH (08:15)
[2019-02-26] MEDS: LISINOPRIL 5 MG TAB PO SCH (08:15)
[2019-02-26] MEDS: FAMOTIDINE 20 MG in SYRINGE 3 ML IV SCH (08:16)
[2019-02-26] MEDS ORDERED: ENOXAPARIN INJ 40 MG/0.4 ML SYR SQ SCH (09:00)
--- NOTE | 2019-02-26 10:37 | Gastroenterology Progress Note ---
Date of Service February 26, 2019 Assessment & Plan (1) Gallstone pancreatitis: Much improved. Advance to low fat diet. If tolerates well then no GI contraindication to DC today. Present on Admission?: Yes (2) Choledocholithiasis: Needs OP ERCP in 3-4 weeks to remove stent. Our GI office has been notified and will arrange Present on Admission?: Yes Supervising Physician Co-Signing Physician Notes I have performed a history and physical examination of this patient and reviewed the electronic medical record. Specifically, on physical examination there is no abdominal tenderness. I have discussed the case with CHARLOTTE Sinha. The above note reflects my findings, conclusions, and recommendations. Lucho De Oliveira MD Subjective MR. Russell Fung is an 83 yr old male who underwent ERCP with stone extraction on Sat 03/03. He is doing well, tolerating clear liqs po. No abd pain. LFTs and lipase much improved: T Bili 7.9->1.9 AST 216-> 58 ALT 306->135 Alk Phos 562->274 lipase 39k->729 Review of Systems Review of Systems: ROS: Gen: Denies weakness, fevers, weight loss Eyes: No eye redness, or pain, no recent vision changes Resp: No SOB, no cough Cardio: No palpitations/irregular beats, no chest pain GI: No abdominal pain, no nausea/vomiting : Denies pain on urination Skin: No jaundice, itching or new rashes Physical Exam Constitutional: WD/WN, vitals as above Eyes: PERRL, conjunctivae normal, anicteric sclerae ENMT: external ear and nose normal, oropharynx normal Neck: trachea midline, no thyromegaly Respiratory: normal respiratory effort, lungs clear to auscultation Cardiovascular: RRR, no murmur, no edema Gastrointestinal (Abdomen): normal bowel sounds, soft, nontender, no hepatosplenomegaly Skin: no rashes, warm and dry Neurologic: PERRL, EOMI, accommodation nl, no face palsy, no dysarthria Lymphatic: no cervical or axillary lymphadenopathy Results & Data Vital Signs (Past 12 Hours) Vital Signs Temp Pulse Pulse Resp BP Pulse Ox 02/26/19 07:03 56 L 02/26/19 06:20 36.8 C 55 L 18 139/76 93 02/26/19 04:28 36.8 C 58 L 20 144/73 H 95 02/26/19 00:00 63 02/25/19 22:40 36.9 C 66 18 169/75 H 94 Diagnostic Findings [place], [place] [phone] Magnetic Resonance Report Patient: RUSSELL FUNG Date: 02/23/19 MR#: [id number]: [address] Acct ID:[id number]: Date: 1935City Zip: [place] [address] Age: 83Location: 2W Sex: M Room/Bed: [facility] Att Phy: Olman Avalos M.D.Diagnosis: ACUTE PANCREATITIS Marilee Phy: Mariajose John MDService Date: 02/23/19 Fam Phy: Interpreting Phy: Vinod Alaniz MD Admit Phy: Olman Avalos M.D. Ordering Phy: Milana Martini MD cc: ~ Study: MRCP HISTORY: Pancreatitis FINDINGS: Liver and spleen appear uniform. Mild infiltrative change in the peripancreatic fat. This appearance suggests a component of pancreatitis. No evidence for abscess collection or pseudocyst formation. ERCP on 02/23/[address] Donovan 1. Mild pancreatitis. 2. Prior cholecystectomy. 3. No evidence for abscess collection or pseudocyst at the current time. 4. No significant and are only minimal fullness of the biliary ductal system. Normal pancreatic duct. 5. No well-defined defect with in the distal common bile duct as was noted on the patient's prior CT exam.
--- NOTE | 2019-02-26 12:11 | Anesthesiology Progress Note ---
Date of Service February 26, 2019 Anesthesia Post Procedure Vital Signs Vital Signs: Temp Pulse Pulse Resp BP BP Pulse Ox 02/26/19 07:03 56 L 02/26/19 06:20 36.8 C 55 L 18 139/76 93 02/26/19 04:28 36.8 C 58 L 20 144/73 H 95 02/26/19 00:00 63 02/25/19 22:40 36.9 C 66 18 169/75 H 94 02/25/19 19:36 36.3 C L 54 L 18 157/84 H 96 02/25/19 14:00 36.3 C L 53 L 18 147/73 H 97 Pain Intensity Upper Medial Abdomen: Pain Intensity: 1 Throat: Pain Intensity: 1 Notes Mental Status: alert / awake / arousable Patient Amnestic to Procedure: Yes Nausea / Vomiting: adequately controlled Pain: adequately controlled Airway Patency, RR, SpO2: stable & adequate BP & HR: stable & adequate Hydration State: stable & adequate Anesthetic Complications: no major complications apparent and Pt Satisfied with anesthetic care
--- NOTE | 2019-02-26 16:20 | Hospitalist Progress Note ---
Date of Service February 26, 2019 Assessment & Plan (1) Pancreatitis: Continue medsurge with tele. POD #2 via ERCP removed one stone and moderate sludge, put the stent. Patient had history of Acute cholecystitis treated with a Lap choley performed by Dr. Hannah 12/17. Pain management. Patient tolerates low-fat diet Trend lipase : 84591-->2371-->1597-->729 DVT prophylaxis with Lovenox 40 mg SC daily Full code DC home today and follow-up with PCP in 7 days Choledocholithiasis; patient will need to schedule appointment for OP ERCP in 3 to 4 weeks to remove stent. 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 will be monitoring his hemoglobin in AM. 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 (4) Hypertension: BP is improving,but will continue monitoring and add antihypertensive agent if BP remains elevated. Patient is currently only on a diuretic.Hold diuretic for now and restart tomorrow. (5) History of colon resection: Patient had colon cancer. Patient had R partial pablo-colectomy performed by Dr Marie in [place] on 11/06/18 due to colon cancer DVT : lovenox Subjective Seen and examined at. Improving. Patient have a low-fat breakfast without any issue.He is S/P ERCP POD#2 with stone extraction. Good p.o. eat intake. Patient tolerates pain very well eager to go home Labs improved : T Bili 7.9->1.9 AST 216-> 58 ALT 306->135 Alk Phos 562->274 lipase 01280->729 Patient denies fever chills headache chest pain shortness of breath abdominal pain frequency urgency hematemesis melena hematochezia nausea or vomiting Review of Systems Review of Systems: All systems reviewed & are unremarkable except as noted in HPI & below Physical Exam Constitutional: WD/WN, vitals as above well developed Eyes: PERRL, conjunctivae normal, anicteric sclerae ENMT: external ear and nose normal, oropharynx normal Neck: trachea midline, no thyromegaly Respiratory: normal respiratory effort, lungs clear to auscultation Cardiovascular: RRR, no murmur, no edema Chest (Breasts): normal inspection/palpation of breasts Gastrointestinal (Abdomen): Inspection/Auscultation: abdomen normal to inspection Percussion/Palpation: abdomen soft Musculoskeletal: no cyanosis or clubbing, extremities motor strength 5/5 Skin: no rashes, warm and dry Neurologic: patellar DTR's 2+ bilat, sensation intact Psychiatric: A+Ox3, euthymic affect Genitourinary: no testicular masses, no penis abnormality Lymphatic: no cervical or axillary lymphadenopathy Results & Data Vital Signs (Past 12 Hours) Vital Signs Temp Pulse Pulse Resp BP Pulse Ox 02/26/19 15:30 36.6 C 52 L 18 126/70 97 02/26/19 07:03 56 L 02/26/19 06:20 36.8 C 55 L 18 139/76 93 02/26/19 04:28 36.8 C 58 L 20 144/73 H 95 PG Care Time/CCT Total # of Minutes Spent Total Time Spent with Patient: Total time spent is greater than 50% in coordi nation of care (as documented) at patient's floor/unit and/or counseling patient: (1) Pancreatitis Acute pancreatitis complication: unspecified Chronicity: acute Pancreatitis type: unspecified pancreatitis type Qualified Code(s): K85.90 - Acute pancreatitis without necrosis or infection, unspecified
--- NOTE | 2019-02-26 16:28 | Discharge Summary ---
Date of Service February 26, 2019 Admission HPI Per Admitting Provider This is a pleasant 83 yo male with past medical history described below, Patient reports having intermittent abd. pain which began about 2-3 weeks. He reports that they became more frequent this past weekend. Pain was dull, sometimes burning, epigastric, non radiating, would last about 20-30 mins. Patient did not appreciate any associated factors, except for diary food. However from Tuesday to tuesday, patient had no pain, until . On evening, patient had abd. pain which was severe and began at 10 pm. The pain did not subside over the course of the night. Patient arrived at the ER and was diagnosed with pancreatitis due to elevated lipase. Principal Diagnosis none Discharge Data Allergies Allergy/AdvReac Type Severity Reaction Status Date / Time adhesive Allergy Mild SKIN Verified 02/23/19 04:02 REDNESS No Known Drug Allergies AdvReac Unknown Unknown Verified 02/23/19 04:02 mylan brand HTN AdvReac Tachycardia Uncoded 02/23/19 07:04 Consultations 02/23/19 05:20 ED Decision to Admit Stat 02/23/19 15:39 Consult Gastroenterology Routine Procedures Performed Operation Date: 02/24/19 09:20 Actual Procedures p Endoscopic Retrograde Cholangiopancreatogram - Alfredo Donovan MD Ordered Studies 02/23/19 03:11 CT abd pelvis IV con only Urgent 02/23/19 15:36 MR MRCP Routine 02/24/19 08:00 [place] ERCP biliary ductal Routine Hospital Course (1) Pancreatitis: Continue medsurge with tele. POD #2 via ERCP removed one stone and moderate sludge, put the stent. Patient had history of Acute cholecystitis treated with a Lap choley performed by Dr. Hannah 12/17. Pain management. Patient tolerates low-fat diet Trend lipase : 69097-->2371-->1597-->729 DVT prophylaxis with Lovenox 40 mg SC daily Full code DC home today and follow-up with PCP in 7 days Choledocholithiasis; patient will need to schedule appointment for OP ERCP in 3 to 4 weeks to remove stent. 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 will be monitoring his hemoglobin in AM. 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 (4) Hypertension: BP is improving,but will continue monitoring and add antihypertensive agent if BP remains elevated. Patient is currently only on a diuretic.Hold diuretic for now and restart tomorrow. (5) History of colon resection: Patient had colon cancer. Patient had R partial pablo-colectomy performed by Dr Marie in [place] on 11/06/18 due to colon cancer DVT : lovenox Total Time Total Time Spent Total Time Spent (In Minutes): over 35 min Discharge Plan Discharge Items Patient Disposition: Home - Self-Care Reason For Visit: ACUTE PANCREATITIS Discharge Diagnosis: Choledocholithiasis, acute pancreatitis Discharge Goals: Decrease discomfort, Diagnostic testing and Improve disease control Activity: Resume your previous activity Non-emergency contact: Primary Care Provider Call non-emergency contact if: you have any medication questions, your pain is unusual for you, you have a fever and your temperature is above 100.5 Follow-up/Referrals: Mariajose John MD [Primary Care Provider] - Diet: Heart Healthy and Low Fat Addtl Provider Instructions: You will need outpatient ERCP in 3 to 4 weeks to remove stent. GI office is notified and will call you with the appointment. Prescriptions: New metronidazole 500 mg tablet 500 mg PO TID Qty: 15 RF: 0 Continued tamsulosin [Flomax] 0.4 mg capsule 0.4 mg PO DAILY Qty: 90 RF: 1 lisinopril-hydrochlorothiazide [Zestoretic] 10-12.5 mg tablet 0.5 tab PO DAILY Qty: 45 RF: 1 omeprazole 20 mg capsule,delayed release(DR/EC) 20 mg PO DAILY Qty: 30 RF: 1 aspirin [Aspir-81] 81 mg Tablet,Delayed Release (Dr/Ec) 81 mg PO DAILY RF: 0 calcium carbonate [Calcium 600] 600 mg calcium (1,500 mg) Tablet 600 mg PO BID RF: 0 Men's Multivitamin 400-20-300 mcg Tablet 1 tab PO DAILY RF: 0 Discontinued clindamycin HCl [Cleocin HCl] 300 mg capsule 600 mg PO UD RF: 0 Stand-Alone Forms: [facility] Discharge Orders: Discharge Order (Routine); Ordered 02/26/19 Ordered By: Milana Martini Admission Data Admit Date/Time: 02/23/19 05:52 Attending Provider: Milana Martini Admit Provider: Olman Avalos Primary Care Provider: Mariajose John Other Providers: Olman Avalos ; Patrice Carter Service: Medical Other Interventions: Discharge Summary Assessment (RN) Last Done: 02/26/19 16:47 DC Date/Time DO NOT enter until pt leaves facility: 02/26/19 17:38
== END 2019-02-26 17:38 | disposition home or self-care (01) | DRG 440 ==
LOC: ED 02:50 → 2W 05:52 → SUATTDRO 05:52 → 2W 08:29

== ENCOUNTER 2023-05-21 12:07 | Observation (INO) ==
[2023-05-21] MEDS ORDERED: KETOROLAC TROMETHAMINE 15 MG/ML VIAL IV STA (12:44)
[2023-05-21] MEDS ORDERED: SODIUM CHLORIDE 0.9% 500 ML IV STA (12:44)
[2023-05-21] MEDS ORDERED: FAMOTIDINE 20MG IV PUSH 20 MG/5 ML SYR IV STA (12:46)
--- NOTE | 2023-05-21 12:58 | Emergency Department Note ---
Impression & Plan Acute upper abdominal pain, Headache ED Provider Note Provider: Fabiano Villa MD DATE OF SERVICE: 05/21/2023 CHIEF COMPLAINT: Head pressure, stomach upset HISTORY OF PRESENT ILLNESS: Patient is a 87-year-old gentleman history of colon cancer status post partial colectomy, pancreatitis and cholecystectomy presenting here today stating over the past 3 days has been having some upper abdominal discomfort and a burning-like quality. Limited radiation to the flank and back it last night but not so much today. Started Tuesday after being at a [employer] meal. Denies any trauma. Reports yesterday started with frontal head pressure more so than pain. Denies numbness or tingling. Denies dizziness. Denies sore throat maybe a slight congestion. Denies significant chest comfort now but has had some intermittent sharp chest pains in the lateral chest. Denies significant shortness of breath or leg swelling. Does not feel like prior episode of gallstone pancreatitis. Denies palpitations. Denies syncope. Denies diarrhea or lower abdominal discomfort. PAST MEDICAL HISTORY: As noted above MEDICATIONS: Reviewed home medications at bedside SOCIAL HISTORY: PHYSICAL EXAM: GENERAL: alert and oriented in no acute distress on stretcher Head: normocephalic and atraumatic EYES: No injection, discharge or icterus. NECK: Trachea midline. Supple with good range of motion ENT: Mucous membranes pink and moist. LUNGS: Airway patent. No retractions or tachypnea HEART: Regular rate and rhythm. No chest wall tenderness ABDOMEN: Soft and non-tender, without guarding or rebound. SKIN: Acyanotic, warm, dry, without rashes EXTREMITIES: Without swelling, tenderness or deformity NEUROLOGICAL: No focal deficits. No aphasia. No facial droop or slurred speech. Ambulatory. EK bpm sinus rhythm first-degree AV block. No PVC. No acute ST segment elevation or depression with QTc 418. CONTINUOUS CARDIAC MONITORING: was ordered and showed a heart rate of 50s-70s bpm in sinus rhythm first-degree heart block Patient's laboratory studies and imaging reviewed. Differential includes Appendicitis, testicular torsion, infections, diverticulitis, UTI, obstruction, mesenteric ischemia, aortic pathology, inflammatory bowel disease, renal colic, PUD, pancreatitis, biliary pathology, hernia, volvulus, constipation, as well as other pathologies. IMPRESSION/MEDICAL DECISION MAKING: Patient with 2 general complaints: Some abdominal discomfort in the upper abdomen but not significantly tender developing over the past 3 to 4 days. Some eye pressure since yesterday. Some intermittent sharp left-sided chest pains yesterday but minimal now. Limited pain in the mid back around the kidney area he reports last night but not so much now. Eating okay. No significant swelling noted. Good range of motion and no fevers reported. Low suspicion for meningitis. Significant GI history but does not seem like pancreatitis. EKG obtained as well as troponin sent but seems less likely to be ACS. No significant neurological deficit I doubt acute CVA but will obtain a CT of the head given his complaint and age as well as a CT of the abdomen pelvis with his abdominal complaints. We will complete a CT angiogram of the chest as well given his complaint of some pain in the left side as well as his upper abdominal discomfort to exclude an occult PE causing his symptoms. Questions could be infectious and respiratory panel ordered. Blood work here with slight leukocytosis 11.11. No significant anemia. No significant exit abnormality signs of renal dysfunction. AST ALT" phosphatase normal with bilirubin 1.6 not severely elevated. Lipase also 113 very minimally elevated but I doubt this represents acute pancreatitis. Urinalysis negative as is his respiratory viral panel. CT per radiology without evidence of PE or acute pulmonary pathology however CT abdomen pelvis question of possible pancreatic inflammation versus peptic ulcer disease. Given a dose of Protonix here. Will bring in for further care given this question. Lipase again minimally elevated but the severity of his pain is underwhelming for true pancreatitis. Believe further monitoring and GI evaluation is warranted. Patient and updated. DIAGNOSIS: Epigastric abdominal pain, headache, elevated lipase DISPOSITION: Hospitalist will evaluate Patient was agreeable with this plan. 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) Surgical History S/P tendon repair left hand many years ago as per pt History of basal cell carcinoma excision Hx of cataract extraction History of back surgery History of arthroscopy of left shoulder History of left hip replacement History of right knee joint replacement Hx of cholecystectomy History of colon resection Family History Brother Family hx of colon cancer Colorectal cancer Sister Breast cancer Father Myocardial infarction Other Hypertension Denies family history of Ovarian cancer Prostate cancer Diabetes Social History Smoking Status: Former smoker Tobacco Type: Cigarettes Second Hand Exposure: No; Do You Dip or Chew Tobacco: No; Hx Alcohol Use: Yes Hx Substance Use: No Preferred Language: Irish Communication Ability: Effective Visual Impairment: No Limitations Railroad Firer/Fireman Required: No Beliefs That Will Affect Care: None marital status: Current Living Situation: Spouse current occupational status: retired How many Children do You have: 2 Feels Safe at Home: Yes Childhood Exposure to Second-Hand Smoke: Yes Diet: regular caffeine: No Dental Care, Regularly: Yes Physical Activity Frequency: Daily Seatbelt Use: always Sunscreen Use: Yes Assistive Devices: Denture - Upper and Glasses Allergies Allergies Allergy/AdvReac Type Severity Reaction Status Date / Time adhesive Allergy Mild SKIN Verified 05/21/23 15:29 REDNESS mylan brand HTN AdvReac Intermediate Tachycardia Uncoded 05/21/23 15:29 Home Meds Home Medications Medication Instructions Recorded Confirmed calcium carbonate 600 mg calcium 600 mg PO BID 12/16/18 05/21/23 (1,500 mg) tablet (Calcium) clindamycin HCl 300 mg capsule 300 mg PO DAILY PRN PRE DENTAL 06/15/21 05/21/23 acetaminophen 500 mg tablet 500 mg PO Q6H PRN Pain 11/21/21 05/21/23 aspirin 81 mg tablet,delayed 81 mg PO DAILY 11/21/21 05/21/23 release (Elly Low Dose Aspirin) yvtuyohn-[id number]-[id number] acid 400 1 tab PO QAM 05/21/23 05/21/23 mcg-vit K 20 mcg-lycop 300 mcg tablet Previous Rx's Medication Instructions Recorded lisinopril 5 mg tablet 5 mg PO DAILY #90 tabs 07/26/22 Results & Data (ED) Vital Signs Vital Signs - 24 hr 05/21/23 12:16 05/21/23 12:43 05/21/23 12:50 Temperature 36.7 C Temperature Source Temporal Artery Scan Pulse Rate 79 63 Pulse Rate [Right Finger] Respiratory Rate 18 Respiratory Effort / Characteristics Respiratory Depth Respiratory Pattern Blood Pressure 144/81 H Blood Pressure [Right Arm] Blood Pressure Mean 102 Blood Pressure Mean [Right Arm] Blood Pressure Position [Right Arm] Pulse Oximetry 97 97 Oxygen Delivery Method Room Air Room Air Sepsis Recent Fever Within 48 Hours No Sepsis New/Unexplained Change in Mental Status No Sepsis Action Taken by Nursing No Action Required 05/21/23 12:59 05/21/23 14:37 05/21/23 14:40 Temperature Temperature Source Pulse Rate 63 69 Pulse Rate [Right Finger] 56 L Respiratory Rate 20 20 16 Respiratory Effort / Characteristics Non-Labored Spontaneous Respiratory Depth Normal Respiratory Pattern Regular Blood Pressure 153/85 H 147/73 H Blood Pressure [Right Arm] 147/73 H Blood Pressure Mean 109 87 Blood Pressure Mean [Right Arm] 97 Blood Pressure Position [Right Arm] Lying Pulse Oximetry 97 96 95 Oxygen Delivery Method Room Air Sepsis Recent Fever Within 48 Hours Sepsis New/Unexplained Change in Mental Status Sepsis Action Taken by Nursing 05/21/23 15:00 05/21/23 15:31 05/21/23 16:43 Temperature Temperature Source Pulse Rate 57 L 62 57 L Pulse Rate [Right Finger] Respiratory Rate 20 20 18 Respiratory Effort / Characteristics Respiratory Depth Respiratory Pattern Blood Pressure 139/74 183/96 H 171/99 H Blood Pressure [Right Arm] Blood Pressure Mean 93 116 130 Blood Pressure Mean [Right Arm] Blood Pressure Position [Right Arm] Pulse Oximetry 97 97 99 Oxygen Delivery Method Sepsis Recent Fever Within 48 Hours Sepsis New/Unexplained Change in Mental Status Sepsis Action Taken by Nursing 05/21/23 16:47 Temperature Temperature Source Pulse Rate 59 L Pulse Rate [Right Finger] Respiratory Rate Respiratory Effort / Characteristics Respiratory Depth Respiratory Pattern Blood Pressure Blood Pressure [Right Arm] Blood Pressure Mean Blood Pressure Mean [Right Arm] Blood Pressure Position [Right Arm] Pulse Oximetry Oxygen Delivery Method Sepsis Recent Fever Within 48 Hours Sepsis New/Unexplained Change in Mental Status Sepsis Action Taken by Nursing Laboratory Data 05/21/23 12:39 05/21/23 12:39 Lab Results 05/21/23 05/21/23 05/21/23 Range/Units 12:39 13:01 13:36 WBC 11.11 H (4.8-10.8) K/ul RBC 4.44 L (4.70-6.10) M/uL Hgb 13.9 L (14.0-18.0) g/dl Hct 41.9 L (42.0-52.0) % MCV 94.4 (80.0-100.0) fL MCH 31.3 (25.0-34.0) pg MCHC 33.2 (32.0-36.0) g/dL RDW Std Deviation 43.2 (36.4-46.3) fL RDW Coeff of Juan 12.4 (11.5-14.5) % Plt Count 254 (130-400) K/uL MPV 8.7 L (9.4-12.4) fL Immature Gran % (Auto) 0.5 % Neut % (Auto) 72.5 % Lymph % (Auto) 18.4 % [place] % (Auto) 7.7 % Eos % (Auto) 0.6 % Baso % (Auto) 0.3 % Neut # (Auto) 8.07 H (1.40-6.50) K/uL Lymph # (Auto) 2.04 (1.20-3.40) K/uL [place] # (Auto) 0.85 H (0.11-0.59) K/uL Eos # (Auto) 0.07 (0.00-0.50) K/uL Baso # (Auto) 0.03 (0.00-0.20) K/uL Immature Gran # (Auto) 0.05 (0.01-0.20) K/uL PT Cancelled INR Cancelled Sodium 137 (136-145) mmol/L Potassium 3.9 (3.5-5.1) mmol/L Chloride 102 (98-107) mmol/L Carbon Dioxide 30 (21-32) mmol/L Anion Gap 5 (3-11) BUN 17 (6-23) mg/dl Creatinine 0.88 (0.6-1.4) mg/dl Est Cr Clr Drug Dosing 59.4 ml/min Est GFR ( Amer) 90.8 ml/min Est GFR (Non-Af Amer) 78.3 ml/min BUN/Creatinine Ratio 19.3 (10-20) Glucose 91 (70-99(Fasting)) mg/dl Calcium 10.0 (8.6-10.3) mg/dl Total Bilirubin 1.6 H (0.2-1.0) mg/dl AST 20 (13-39) U/L ALT 12 (7-52) U/L Alkaline Phosphatase 80 (34-104) U/L Troponin I High Sens 5.0 (0-20) pg/ml Total Protein 7.7 (6.0-8.3) gm/dl Albumin 4.3 (3.4-5.0) gm/dl Globulin 3.4 (2.5-4.0) gm/dl Albumin/Globulin Ratio 1.3 (0.9-2) Triglycerides 112 (0-150) mg/dl Cholesterol 141 (0-200) mg/dl LDL Cholesterol, Calc 63 mg/dl VLDL Cholesterol, Calc 22 (0-30) mg/dl HDL Cholesterol 56 mg/dl Cholesterol/HDL Ratio 2.5 (0-5) Lipase 113 H (11-82) U/L Urine Color Yellow Urine Appearance Clear (Clear) Urine pH 6.0 (4.5-7.5) Ur Specific [place] 1.011 (1.000-1.030) Urine Protein Negative (Negative) Urine Glucose (UA) Negative (Negative) Urine Ketones Negative (Negative) Urine Blood Negative (Negative) Urine Nitrite Negative (Negative) Urine Bilirubin Negative (Negative) Urine Urobilinogen Negative (Negative) Ur Leukocyte Esterase Negative (Negative) Adenovirus (PCR) Not Detected (NotDetected) B. pertussis DNA (PCR) Not Detected (NotDetected) B.parapertussis DNA PCR Not Detected (NotDetected) C. pneumoniae DNA (PCR) Not Detected (NotDetected) Coronavirus OC43 (PCR) Not Detected (NotDetected) Coronavirus HKU1 (PCR) Not Detected (NotDetected) Coronavirus 229E (PCR) Not Detected (NotDetected) SARS-CoV-2 (PCR) Not Detected (NotDetected) Coronavirus NL63 (PCR) Not Detected (NotDetected) Human Metapneumovir PCR Not Detected (NotDetected) Influenza Type A (PCR) Not Detected (NotDetected) Influenza Type B (PCR) Not Detected (NotDetected) M. pneumoniae (PCR) Not Detected (NotDetected) Parainfluenza 1 (PCR) Not Detected (NotDetected) Parainfluenza 2 (PCR) Not Detected (NotDetected) Parainfluenza 3 (PCR) Not Detected (NotDetected) Parainfluenza 4 (PCR) Not Detected (NotDetected) RSV (PCR) Not Detected (NotDetected) Entero/Rhino (PCR) Not Detected (NotDetected) 05/21/23 Range/Units 14:23 WBC (4.8-10.8) K/ul RBC (4.70-6.10) M/uL Hgb (14.0-18.0) g/dl Hct (42.0-52.0) % MCV (80.0-100.0) fL MCH (25.0-34.0) pg MCHC (32.0-36.0) g/dL RDW Std Deviation (36.4-46.3) fL RDW Coeff of Juan (11.5-14.5) % Plt Count (130-400) K/uL MPV (9.4-12.4) fL Immature Gran % (Auto) % Neut % (Auto) % Lymph % (Auto) % [place] % (Auto) % Eos % (Auto) % Baso % (Auto) % Neut # (Auto) (1.40-6.50) K/uL Lymph # (Auto) (1.20-3.40) K/uL [place] # (Auto) (0.11-0.59) K/uL Eos # (Auto) (0.00-0.50) K/uL Baso # (Auto) (0.00-0.20) K/uL Immature Gran # (Auto) (0.01-0.20) K/uL PT 10.9 INR 1.0 Sodium (136-145) mmol/L Potassium (3.5-5.1) mmol/L Chloride (98-107) mmol/L Carbon Dioxide (21-32) mmol/L Anion Gap (3-11) BUN (6-23) mg/dl Creatinine (0.6-1.4) mg/dl Est Cr Clr Drug Dosing ml/min Est GFR ( Amer) ml/min Est GFR (Non-Af Amer) ml/min BUN/Creatinine Ratio (10-20) Glucose (70-99(Fasting)) mg/dl Calcium (8.6-10.3) mg/dl Total Bilirubin (0.2-1.0) mg/dl AST (13-39) U/L ALT (7-52) U/L Alkaline Phosphatase (34-104) U/L Troponin I High Sens (0-20) pg/ml Total Protein (6.0-8.3) gm/dl Albumin (3.4-5.0) gm/dl Globulin (2.5-4.0) gm/dl Albumin/Globulin Ratio (0.9-2) Triglycerides (0-150) mg/dl Cholesterol (0-200) mg/dl LDL Cholesterol, Calc mg/dl VLDL Cholesterol, Calc (0-30) mg/dl HDL Cholesterol mg/dl Cholesterol/HDL Ratio (0-5) Lipase (11-82) U/L Urine Color Urine Appearance (Clear) Urine pH (4.5-7.5) Ur Specific [place] (1.000-1.030) Urine Protein (Negative) Urine Glucose (UA) (Negative) Urine Ketones (Negative) Urine Blood (Negative) Urine Nitrite (Negative) Urine Bilirubin (Negative) Urine Urobilinogen (Negative) Ur Leukocyte Esterase (Negative) Adenovirus (PCR) (NotDetected) B. pertussis DNA (PCR) (NotDetected) B.parapertussis DNA PCR (NotDetected) C. pneumoniae DNA (PCR) (NotDetected) Coronavirus OC43 (PCR) (NotDetected) Coronavirus HKU1 (PCR) (NotDetected) Coronavirus 229E (PCR) (NotDetected) SARS-CoV-2 (PCR) (NotDetected) Coronavirus NL63 (PCR) (NotDetected) Human Metapneumovir PCR (NotDetected) Influenza Type A (PCR) (NotDetected) Influenza Type B (PCR) (NotDetected) M. pneumoniae (PCR) (NotDetected) Parainfluenza 1 (PCR) (NotDetected) Parainfluenza 2 (PCR) (NotDetected) Parainfluenza 3 (PCR) (NotDetected) Parainfluenza 4 (PCR) (NotDetected) RSV (PCR) (NotDetected) Entero/Rhino (PCR) (NotDetected) Administered Medications Discontinued Medications Sodium Chloride (Nss) 500 mls @ 999 mls/hr IV .Q31M STA Stop: 05/21/23 13:14 Last Infusion: 05/21/23 13:25 Dose: Infused Documented By: Admin: 05/21/23 12:54 Dose: 999 mls/hr Documented By: KUNAL Famotidine (Pepcid 20mg Iv Push) 20 mg in 5 mls @ 2.5 mls/min IV NOW STA Stop: 05/21/23 12:47 Last Admin: 05/21/23 12:54 Dose: 2.5 mls/min Documented By: KUNAL Pantoprazole Sodium 80 mg/ (Dextrose) 120 mls @ 480 mls/hr IV ONE STA Stop: 05/21/23 15:29 Last Infusion: 05/21/23 16:07 Dose: Infused Documented By: Admin: 05/21/23 15:50 Dose: 480 mls/hr Documented By: KUNAL Ioversol (Optiray 320 500ml) 112 ml IV ONCE ONE Stop: 05/21/23 14:03 Last Admin: 05/21/23 14:02 Dose: 112 ml Documented By: HAYLIE Ketorolac Tromethamine (Ketorolac Tromethamine 15 Mg/Ml Vial) 10 mg IV NOW STA Stop: 05/21/23 12:45 Last Admin: 05/21/23 12:54 Dose: 10 mg Documented By: KUNAL Imaging Data Radiologist's Impression: Head CT 05/21/23 12:44 CT OF THE HEAD WITHOUT CONTRAST CLINICAL HISTORY: Headache. COMPARISON STUDY: Head CT and MRI of the brain May 26, 2017. TECHNIQUE: Helical axial images of the head were obtained without IV contrast. Automated exposure control was utilized for the study. A dose lowering technique was utilized adhering to the principles of ALARA. FINDINGS: No acute intracranial hemorrhage, midline shift or mass effect is present. The ventricular system is unremarkable. The basal cisterns are patent. No extra-axial collections are present. There are no findings to suggest acute dural sinus thrombosis or acute territorial infarct. No significant calvarial abnormalities are present. Visualized portions of the sinuses and mastoid air cells are clear. IMPRESSION: No acute intracranial findings. ACT 112: Negative or not required by law. Electronically signed by: Seamus Garza M.D. 05/21/2023 2:13 PM Abdomen/Pelvis CT 05/21/23 12:45 CT OF THE ABDOMEN AND PELVIS WITH CONTRAST CLINICAL HISTORY: Upper abdominal pain to flank. COMPARISON STUDY: CT of the abdomen and pelvis November 21, 2021. TECHNIQUE: Following IV administration of 112 mL of Optiray, axial images of the abdomen and pelvis were obtained from the lung bases to the proximal femurs. Images were reviewed in the axial, sagittal, and coronal planes. IV contrast was administered without complication. Automated exposure control was utilized for the study. A dose lowering technique was utilized adhering to the principles of ALARA. FINDINGS: No pneumatosis, free air or portal venous gas is present. A few subcentimeter hypodense hepatic lesions are too small to characterize but are unchanged. These are benign. There is no biliary ductal dilatation status post cholecystectomy. There is mild inflammation adjacent to the pancreatic head and uncinate process as well as the first and second portions of the duodenum and the distal stomach. No extraluminal gas is present. There is no fluid collection. There is no pancreatic ductal dilatation. The pancreas enhances homogeneously. There is slight fullness of the uncinate process. A few subcentimeter renal lesions are too small to characterize. There is extensive sigmoid diverticulosis without evidence for acute diverticulitis. There is no evidence for a bowel obstruction. Stable postoperative findings are noted following right hemicolectomy. Postoperative findings within the lumbosacral spine are present. There is a left hip arthroplasty. IMPRESSION: 1. Mild inflammation adjacent to the pancreatic head and uncinate process and the distal stomach and proximal duodenum. Differential considerations include acute pancreatitis and peptic ulcer disease. Slight fullness of the uncinate process. No definite mass identified. Follow-up pancreatic protocol CT in one month to ensure resolution and exclude the unlikely possibility of an underlying mass is recommended. No extraluminal gas. No peripancreatic fluid collections. 2. Extensive colonic diverticulosis. No evidence for acute diverticulitis. 3. Stable postoperative findings following right hemicolectomy. 4. No biliary ductal dilatation status post cholecystectomy. ACT 112: Negative or not required by law. Electronically signed by: Seamus Garza M.D. 05/21/2023 2:58 PM Chest CTA 05/21/23 12:46 CT ANGIOGRAPHY OF THE CHEST, PULMONARY EMBOLUS PROTOCOL CLINICAL HISTORY: Upper abdominal pain. Evaluate for pulmonary embolus. COMPARISON STUDY: Chest CT September 09, 2022. TECHNIQUE: Following IV administration of 112 mL of Optiray, helical axial images of the chest were obtained utilizing the pulmonary embolus protocol. Maximal intensity projections and sagittal and coronal reformats were viewed on an independent 3D workstation. IV contrast was administered without complication. Automated exposure control was utilized for the study. A dose lowering technique was utilized adhering to the principles of ALARA. CT DOSE: 2726.45 mGy.cm FINDINGS: No pulmonary emboli are identified. There is no thoracic aortic dissection. Mild dilatation of the ascending aorta, measuring 3.9 cm is unchanged. There is mild cardiomegaly and moderate coronary artery calcification. Multiple calcified pleural plaques are again noted. There is no consolidation to suggest pneumonia. No pneumothorax or pleural effusion is present. Subpleural groundglass opacities reflect atelectasis. Right upper quadrant inflammation adjacent to the distal stomach and pancreatic head is better depicted on the CT of the abdomen and pelvis which will be reported separately. The gallbladder surgically absent. IMPRESSION: 1. No pulmonary emboli identified. 2. No acute intrathoracic findings. 3. Inflammation adjacent to the distal stomach and pancreatic head better depicted on the CT of the abdomen and pelvis. Please see that report for further description. ACT 112: Negative or not required by law. Electronically signed by: Seamus Garza M.D. 05/21/2023 2:38 PM Discharge Plan Visit Data Chief Complaint: Abdominal Pain Stated Complaint: ABDOMINAL PAIN, HEADACHE ED Provider: Fabiano Villa Discharge Problem: Acute upper abdominal pain, Headache Patient Disposition: Being Evaluated by Hospitalist Forms Stand Alone Forms: My [facility] [employer] Prescriptions Prescriptions: No Action lisinopril 5 mg tablet 5 mg PO DAILY Qty: 90 3RF clindamycin HCl 300 mg capsule 300 mg PO DAILY PRN (Reason: PRE DENTAL) calcium carbonate [Calcium 600] 600 mg calcium (1,500 mg) Tablet 600 mg PO BID aspirin [Elly Low Dose Aspirin] 81 mg Tablet,Delayed Release (Dr/Ec) 81 mg PO DAILY acetaminophen 500 mg Tablet 500 mg PO Q6H PRN (Reason: Pain) Men's Multivitamin 400-20-300 mcg Tablet 1 tab PO QAM Referrals Referrals: Braden Caceres DO [Primary Care Provider] -
[2023-05-21 13:05] LABS: Basophils # (auto) 0.03 K/uL (0.00-0.20); Basophils % (auto) 0.3 %; Eosinophils # (auto) 0.07 K/uL (0.00-0.50); Eosinophils % (auto) 0.6 %; Hematocrit (blood only) 41.9 % (42.0-52.0); Hemoglobin 13.9 g/dl (14.0-18.0); Immature Granulocytes # (auto) 0.05 K/uL (0.01-0.20); Immature Granulocytes % (auto) 0.5 %; Lymphocytes # (auto) 2.04 K/uL (1.20-3.40); Lymphocytes % (auto) 18.4 %; Mean Corpuscular Hemoglobin 31.3 pg (25.0-34.0); Mean Corpuscular Hgb Conc 33.2 g/dL (32.0-36.0); Mean Corpuscular Volume 94.4 fL (80.0-100.0); Mean Platelet Volume 8.7 fL (9.4-12.4); Monocytes # (auto) 0.85 K/uL (0.11-0.59); Monocytes % (auto) 7.7 %; Neutrophils # (auto) 8.07 K/uL (1.40-6.50); Neutrophils % (auto) 72.5 %; Platelet Count 254 K/uL (130-400); RDW Coefficient of Variation 12.4 % (11.5-14.5); RDW Standard Deviation 43.2 fL (36.4-46.3); Red Blood Count 4.44 M/uL (4.70-6.10); White Blood Count 11.11 K/ul (4.8-10.8)
[2023-05-21 13:27] LABS: Albumin Globulin Ratio 1.3 (0.9-2); Albumin Level 4.3 gm/dl (3.4-5.0); BUN Creatinine Ratio 19.3 (10-20); Bilirubin,Total 1.6 mg/dl (0.2-1.0); Creatinine Clr Calc Pharmacy 59.4 ml/min; Est GFR (African American) 90.8 ml/min; Est GFR (Non-African American) 78.3 ml/min; Globulin 3.4 gm/dl (2.5-4.0); Potassium 3.9 mmol/L (3.5-5.1); Total Protein 7.7 gm/dl (6.0-8.3)
[2023-05-21 13:49] LABS: Appearance Urine Clear (Clear); Bilirubin Urine Negative (Negative); Blood Urine Negative (Negative); Color Urine Yellow; Glucose Urine UA Negative (Negative); Ketones Urine Negative (Negative); Leukocyte Esterase Urine Negative (Negative); Nitrite Urine Negative (Negative); Protein Urine Negative (Negative); Specific Gravity Urine 1.011 (1.000-1.030); Urobilinogen Urine Negative (Negative)
[2023-05-21] MEDS ORDERED: OPTIRAY 320 500ml IV ONE (14:02)
[2023-05-21 14:03] LABS: Adenovirus PCR Not Detected (NotDetected); Bordetella parapertussis PCR Not Detected (NotDetected); Bordetella pertussis PCR Not Detected (NotDetected); Chlamydia pneumoniae PCR Not Detected (NotDetected); Coronavirus 229E PCR Not Detected (NotDetected); Coronavirus CoV-2 (COVID19)PCR Not Detected (NotDetected); Coronavirus HKU1 PCR Not Detected (NotDetected); Coronavirus NL63 PCR Not Detected (NotDetected); Coronavirus OC43PCR Not Detected (NotDetected); Human Metapneumovirus PCR Not Detected (NotDetected); Influenza A PCR Not Detected (NotDetected); Influenza B PCR Not Detected (NotDetected); Mycoplasma pneumoniae PCR Not Detected (NotDetected); Parainfluenza Virus 1 PCR Not Detected (NotDetected); Parainfluenza Virus 2 PCR Not Detected (NotDetected); Parainfluenza Virus 3 PCR Not Detected (NotDetected); Parainfluenza Virus 4 PCR Not Detected (NotDetected); Respiratory Syncytial VirusPCR Not Detected (NotDetected); Rhinovirus/Enterovirus PCR Not Detected (NotDetected)
--- NOTE | 2023-05-21 14:14 | CT Scan Report ---
CT OF THE HEAD WITHOUT CONTRAST CLINICAL HISTORY: Headache. COMPARISON STUDY: Head CT and MRI of the brain May 26, 2017. TECHNIQUE: Helical axial images of the head were obtained without IV contrast. Automated exposure con trol was utilized for the study. A dose lowering technique was utilized adhering to the principles o f ALARA. FINDINGS: No acute intracranial hemorrhage, midline shift or mass effect is present. The ventricular system is unremarkable. The basal cisterns are patent. No extra-axial collections are present. There are no findings to suggest acute dural sinus thrombosis or acute territorial infarct. No significant calvarial abnormalities are present. Visualized portions of the sinuses and mastoid air cells are griselda ar. IMPRESSION: No acute intracranial findings. ACT 112: Negative or not required by law. Electronically signed by: Seamus Garza M.D. 05/21/2023 2:13 PM
--- NOTE | 2023-05-21 14:40 | CT Scan Report ---
CT ANGIOGRAPHY OF THE CHEST, PULMONARY EMBOLUS PROTOCOL CLINICAL HISTORY: Upper abdominal pain. Evaluate for pulmonary embolus. COMPARISON STUDY: Chest CT September 09, 2022. TECHNIQUE: Following IV administration of 112 mL of Optiray, helical axial images of the chest were o btained utilizing the pulmonary embolus protocol. Maximal intensity projections and sagittal and cor onal reformats were viewed on an independent 3D workstation. IV contrast was administered without co mplication. Automated exposure control was utilized for the study. A dose lowering technique was ut ilized adhering to the principles of ALARA. CT DOSE: 2726.45 mGy.cm FINDINGS: No pulmonary emboli are identified. There is no thoracic aortic dissection. Mild dilatatio n of the ascending aorta, measuring 3.9 cm is unchanged. There is mild cardiomegaly and moderate jose manuel nary artery calcification. Multiple calcified pleural plaques are again noted. There is no consolidat ion to suggest pneumonia. No pneumothorax or pleural effusion is present. Subpleural groundglass opac ities reflect atelectasis. Right upper quadrant inflammation adjacent to the distal stomach and pancr eatic head is better depicted on the CT of the abdomen and pelvis which will be reported separately. The gallbladder surgically absent. IMPRESSION: 1. No pulmonary emboli identified. 2. No acute intrathoracic findings. 3. Inflammation adjacent to the distal stomach and pancreatic head better depicted on the CT of the a bdomen and pelvis. Please see that report for further description. ACT 112: Negative or not required by law. Electronically signed by: Seamus Garza M.D. 05/21/2023 2:38 PM
--- NOTE | 2023-05-21 15:00 | CT Scan Report ---
CT OF THE ABDOMEN AND PELVIS WITH CONTRAST CLINICAL HISTORY: Upper abdominal pain to flank. COMPARISON STUDY: CT of the abdomen and pelvis November 21, 2021. TECHNIQUE: Following IV administration of 112 mL of Optiray, axial images of the abdomen and pelvis w ere obtained from the lung bases to the proximal femurs. Images were reviewed in the axial, sagittal, and coronal planes. IV contrast was administered without complication. Automated exposure control w as utilized for the study. A dose lowering technique was utilized adhering to the principles of ALAR A. FINDINGS: No pneumatosis, free air or portal venous gas is present. A few subcentimeter hypodense hep atic lesions are too small to characterize but are unchanged. These are benign. There is no biliary d uctal dilatation status post cholecystectomy. There is mild inflammation adjacent to the pancreatic h ead and uncinate process as well as the first and second portions of the duodenum and the distal stom ach. No extraluminal gas is present. There is no fluid collection. There is no pancreatic ductal dila tation. The pancreas enhances homogeneously. There is slight fullness of the uncinate process. A few subcentimeter renal lesions are too small to characterize. There is extensive sigmoid diverticulosis without evidence for acute diverticulitis. There is no evidence for a bowel obstruction. Stable posto perative findings are noted following right hemicolectomy. Postoperative findings within the lumbosac ral spine are present. There is a left hip arthroplasty. IMPRESSION: 1. Mild inflammation adjacent to the pancreatic head and uncinate process and the distal stomach and proximal duodenum. Differential considerations include acute pancreatitis and peptic ulcer disease. S light fullness of the uncinate process. No definite mass identified. Follow-up pancreatic protocol CT in one month to ensure resolution and exclude the unlikely possibility of an underlying mass is sharlene mmended. No extraluminal gas. No peripancreatic fluid collections. 2. Extensive colonic diverticulosis. No evidence for acute diverticulitis. 3. Stable postoperative findings following right hemicolectomy. 4. No biliary ductal dilatation status post cholecystectomy. ACT 112: Negative or not required by law. Electronically signed by: Seamus Garza M.D. 05/21/2023 2:58 PM
[2023-05-21 15:01] LABS: Prothrombin Time 10.9 Seconds (9.0-12.0)
[2023-05-21] MEDS ORDERED: PANTOprazole 80 MG in DEXTROSE 5% 100 ML IV STA (15:15)
--- NOTE | 2023-05-21 16:16 | History & Physical Report ---
Date of Service May 21, 2023 Assessment & Plan (1) Acute pancreatitis: Plan: Burning epigastric pain with intermittent radiation to the back since Friday 05/18 Abdomen/pelvic CT revealed mild inflammation of the pancreatic head; Diff Dx: acute pancreatitis and peptic ulcer dz Patient denies NSAID use Hx of colon cancer s/p R partial hemicolectomy in 10/2018 Hx of cholecystectomy in 12/2018 Hx of gallbladder pancreatitis d/t distal bile duct obstruction, treated with ERCP in 02/2019 Patient denies alcohol use Unclear etiology for cause of acute pancreatitis; ?Obstructive process Lipase mildly elevated at 113 on arrival Total bili 1.6 Mild leukocytosis at 11.11 Troponin negative at 5.0 Lipid panel ordered Keep n.p.o. for now Continue fluid resuscitation; LR ordered at 125mL/hr Dilaudid 0.5 to 1.0 mg IV q2h as needed for breakthrough pain EKG with first-degree block; patient endorses intermittent chest palpitations over the last month, but denies CP at present; will admit to tele Zofran 4 mg IV q6h as needed for nausea; QTc 418 A.m. CBC, BMP (2) Headache: Plan: Patient endorses "head pressure" bilaterally across the eyes since Friday 05/[address] NAF Acetaminophen as needed for pain (3) Colon cancer: Plan: S/p R partial hemicolectomy at [place] in 10/2018 (4) Hypertension: Plan: BP peaked at 183/96 in the ED Caution beta-blockers/calcium channel blockers if HR <60bpm Continue lisinopril Plan Disposition: Admit to MedSurg telemetry Full code Keep n.p.o. for now VTE PPx: SCDs, Lovenox 40 mg SQ q24h History of Present Illness Chief Complaint: Abdominal pain Primary Care Provider: DO Juan Mason is an 87-year-old male with PMH of colon cancer s/p right hemicolectomy in 2019, s/p cholecystectomy, TIA, HTN, BPH, gallstone pancreatitis, choledocholithiasis, and OA. He presented to the ED for abdominal pain that sta rted on Friday 05/18. He describes the epigastric pain as a "burning sensation". He endorses radiation to back pain yesterday, but not today. No sick contacts. Patient denies NSAID use. He endorses taking tylenol 2 tabs most mornings. He also endorses new onset "head pressure"; he reports it is constant and bilateral / transverse across the eyes. He would not define as a headache. No recent changes in diet. The patient denies alcohol use. Hypertensive on arrival peaking at 183/96, with HR in the 50-60bpm range. ED course: Toradol 10 mg IV Famotidine 20 mg IV Pantoprazole 80 mg IV IVF ROS: Patient endorses productive cough (clear sputum production) x 1mo, cold intolerance, chills, epigastric pain. Patient denies fever, sweating, dizziness, , CP, pleuritic CP, SOB, N/V/D, burni ng with urination, blood in urine/stool, urinary retention, saddle anesthesia, or numbness/tingling/pain going to down to legs. Social hx: Former tobacco cigarette smoker / tobacco chew; quit 30-40y ago Denies alcohol use Summer 2019: Dx Colon Cancer and right partial hemicolectomy Cholecystectomy Pancreatitis treated with ERCP Allergies Allergy/AdvReac Type Severity Reaction Status Date / Time adhesive Allergy Mild SKIN Verified 05/21/23 15:29 REDNESS mylan brand HTN AdvReac Intermediate Tachycardia Uncoded 05/21/23 15:29 Home Medications Medication Instructions Recorded Confirmed Type calcium carbonate 600 mg calcium 600 mg PO BID 12/16/18 05/21/23 History (1,500 mg) tablet (Calcium) clindamycin HCl 300 mg capsule 300 mg PO DAILY PRN PRE DENTAL 06/15/21 05/21/23 History acetaminophen 500 mg tablet 500 mg PO Q6H PRN Pain 11/21/21 05/21/23 History aspirin 81 mg tablet,delayed 81 mg PO DAILY 11/21/21 05/21/23 History release (Elly Low Dose Aspirin) lisinopril 5 mg tablet 5 mg PO DAILY #90 tabs 07/26/22 05/21/23 Rx asqxrhsl-ztpfcsna-htydn acid 400 1 tab PO QAM 05/21/23 05/21/23 History mcg-vit K 20 mcg-lycop 300 mcg tablet 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) Surgical History S/P tendon repair left hand many years ago as per pt History of basal cell carcinoma excision Hx of cataract extraction History of back surgery History of arthroscopy of left shoulder History of left hip replacement History of right knee joint replacement Hx of cholecystectomy History of colon resection Family History Brother Family hx of colon cancer Colorectal cancer Sister Breast cancer Father Myocardial infarction Other Hypertension Denies family history of Ovarian cancer Prostate cancer Diabetes Social History Smoking Status: Former smoker Tobacco Type: Cigarettes Second Hand Exposure: No; Do You Dip or Chew Tobacco: No; Hx Alcohol Use: Yes Alcohol type: beer Hx Substance Use: No Preferred Language: Bahraini Communication Ability: Effective Visual Impairment: No Limitations Project Geophysicist Required: No Beliefs That Will Affect Care: None marital status: Current Living Situation: Spouse Current Living Situation Comment: yuback style home current occupational status: retired How many Children do You have: 2 Feels Safe at Home: Yes Childhood Exposure to Second-Hand Smoke: Yes Diet: regular caffeine: No Dental Care, Regularly: Yes Physical Activity Frequency: Daily Seatbelt Use: always Sunscreen Use: Yes Assistive Devices: Denture - Upper and Glasses Review of Systems Review of Systems: See HPI above Physical Exam Physical Exam: General: no acute distress; non-toxic appearing; well-nourished; cooperative HEENT: normocephalic, atraumatic; no scleral icterus; PERRLA w/ EOMs intact; moist mucus membrane; vision and hearing grossly intact Neck: supple; no JVD; no lymphadenopathy; trachea midline Skin: warm, dry without signs of tenting; no cyanosis; no rashes, bruising, lesions, or erythema noted CV: chest wall NTP; RRR; S1/S2 normal; no murmurs/rubs/gallops; pulses intact and symmetric at radial, DP, and PT Lungs: no acute respiratory distress; symmetrical chest wall expansion; clear breath sounds across all lung moeller w/o adventitious sounds; no wheezing ABD: Epigastric region is nontender to palpation; negative [place] sign; negative Vick Jackson sign; soft, NTP; BS present; no rebound/guarding; no distention; tympany to percussion; negative CVA tenderness MSK: no tics or fasciculations; no edema noted in the LEs b/l Neuro: A&Ox3; pleasant mood and affect; fluent speech; no focal deficits; sensation grossly intact in the LEs B/L Results & Data Results & Data Vital Signs (Past 12 Hours) Vital Signs Temp Pulse Pulse Resp BP BP Pulse Ox 05/21/23 14:40 56 L 16 147/73 H 95 05/21/23 12:59 63 20 153/85 H 97 05/21/23 12:50 97 05/21/23 12:43 63 05/21/23 12:16 36.7 C 79 18 144/81 H 97 O2 Del Method 05/21/23 14:40 Room Air 05/21/23 12:59 05/21/23 12:50 Room Air 05/21/23 12:43 05/21/23 12:16 Room Air Laboratory Results Abnormal lab results 05/21/23 Range/Units 12:39 WBC 11.11 H (4.8-10.8) K/ul RBC 4.44 L (4.70-6.10) M/uL Hgb 13.9 L (14.0-18.0) g/dl Hct 41.9 L (42.0-52.0) % MPV 8.7 L (9.4-12.4) fL Neut # (Auto) 8.07 H (1.40-6.50) K/uL [place] # (Auto) 0.85 H (0.11-0.59) K/uL Total Bilirubin 1.6 H (0.2-1.0) mg/dl Lipase 113 H (11-82) U/L Diagnostic Findings Head CT 05/21/23 12:44 CT OF THE HEAD WITHOUT CONTRAST CLINICAL HISTORY: Headache. COMPARISON STUDY: Head CT and MRI of the brain May 26, 2017. TECHNIQUE: Helical axial images of the head were obtained without IV contrast. Automated exposure control was utilized for the study. A dose lowering technique was utilized adhering to the principles of ALARA. FINDINGS: No acute intracranial hemorrhage, midline shift or mass effect is present. The ventricular system is unremarkable. The basal cisterns are patent. No extra-axial collections are present. There are no findings to suggest acute dural sinus thrombosis or acute territorial infarct. No significant calvarial abnormalities are present. Visualized portions of the sinuses and mastoid air ce lls are clear. IMPRESSION: No acute intracranial findings. ACT 112: Negative or not required by law. Electronically signed by: Seamus Garza M.D. 05/21/2023 2:13 PM Abdomen/Pelvis CT 05/21/23 12:45 CT OF THE ABDOMEN AND PELVIS WITH CONTRAST CLINICAL HISTORY: Upper abdominal pain to flank. COMPARISON STUDY: CT of the abdomen and pelvis November 21, 2021. TECHNIQUE: Following IV administration of 112 mL of Optiray, axial images of the abdomen and pelvis were obtained from the lung bases to the proximal femurs. Images were reviewed in the axial, sagittal, and coronal planes. IV contrast was administered without complication. Automated exposure control was utilized for the study. A dose lowering technique was utilized adhering to the principles of ALARA. FINDINGS: No pneumatosis, free air or portal venous gas is present. A few subcentimeter hypodense hepatic lesions are too small to characterize but are unchanged. These are benign. There is no biliary ductal dilatation status post cholecystectomy. There is mild inflammation adjacent to the pancreatic head and uncinate process as well as the first and second portions of the duodenum and the distal stomach. No extraluminal gas is present. There is no fluid collection. There is no pancreatic ductal dilatation. The pancreas enhances homogeneously. There is slight fullness of the uncinate process. A few subcentimeter renal lesions are too small to characterize. There is extensive sigmoid diverticulosis without evidence for acute diverticulitis. There is no evidence for a bowel obstruction. Stable postoperative findings are noted following right hemicolectomy. Postoperative findings within the lumbosacral spine are present. There is a left hip arthroplasty. IMPRESSION: 1. Mild inflammation adjacent to the pancreatic head and uncinate process and the distal stomach and proximal duodenum. Differential considerations include acute pancreatitis and peptic ulcer disease. Slight fullness of the uncinate process. No definite mass identified. Follow-up pancreatic protocol CT in one month to ensure resolution and exclude the unlikely possibility of an underlying mass is recommended. No extraluminal gas. No peripancreatic fluid collections. 2. Extensive colonic diverticulosis. No evidence for acute diverticulitis. 3. Stable postoperative findings following right hemicolectomy. 4. No biliary ductal dilatation status post cholecystectomy. ACT 112: Negative or not required by law. Electronically signed by: Seamus Garza M.D. 05/21/2023 2:58 PM Chest CTA 05/21/23 12:46 CT ANGIOGRAPHY OF THE CHEST, PULMONARY EMBOLUS PROTOCOL CLINICAL HISTORY: Upper abdominal pain. Evaluate for pulmonary embolus. COMPARISON STUDY: Chest CT September 09, 2022. TECHNIQUE: Following IV administration of 112 mL of Optiray, helical axial images of the chest were obtained utilizing the pulmonary embolus protocol. Maximal intensity projections and sagittal and coronal reformats were viewed on an independent 3D workstation. IV contrast was administered without complication. Automated exposure control was utilized for the study. A dose lowering technique was utilized adhering to the principles of ALARA. CT DOSE: 2726.45 mGy.cm FINDINGS: No pulmonary emboli are identified. There is no thoracic aortic dissection. Mild dilatation of the ascending aorta, measuring 3.9 cm is unchanged. There is mild cardiomegaly and moderate coronary artery calcification. Multiple calcified pleural plaques are again noted. There is no consolidation to suggest pneumonia. No pneumothorax or pleural effusion is present. Subpleural groundglass opacities reflect atelectasis. Right upper quadrant inflammation adjacent to the distal stomach and pancreatic head is better depicted on the CT of the abdomen and pelvis which will be reported separately. The gallbladder surgically absent. IMPRESSION: 1. No pulmonary emboli identified. 2. No acute intrathoracic findings. 3. Inflammation adjacent to the distal stomach and pancreatic head better depicted on the CT of the abdomen and pelvis. Please see that report for further description. ACT 112: Negative or not required by law. Electronically signed by: Seamus Garza M.D. 05/21/2023 2:38 PM Code Status & VTE Plan Code Status Full code VTE Prophylaxis Plan VTE Prophylaxis will be ordered: Yes Supervising Physician Co-Signing Physician Notes Patient seen and examined, chart reviewed, case discussed with Cahim Leger PA-C and I agree with the assessment and plan as above except as otherwise noted Labs and images reviewed Juan is an 87-year-old male with a past medical history of cholelithiasis and gallstone pancreatitis s/p cholecystectomy in 2019 who presents with abdominal pain with radiographic evidence of suspected acute pancreatitis with mildly elevated lipase. DDx includes peptic ulcer disease, no melena/hematochezia. Diminished appetite due to symptoms and has slight epigastric TTP without rebound/guarding on exam. We will treat as acute pancreatitis. Cannot exclude underlying lesion contributing to obstructive pancreatitis, repeat pancreatic protocol CT at 1 month is recommended. Patient has been continued on empiric Protonix daily, BUN is not elevated and no evidence of upper GI bleed. Lipids last well controlled, repeat lipid panel to exclude hypertriglyceridemia pancreatitis although low suspicion for this overall. Agree with assessment and management as above PG Care Time/CCT Total # of Minutes Spent Total Time Spent with Patient: Total time spent is greater than 50% in coordination of care (as documented) at patient's floor/unit and/or counseling patient: [place] [address] INT INP/OBS CARE 2/55MIN Patient Type Established History Comprehensive Exam Comprehensive Medical Decision Making Moderate Complexity Diagnoses Acute pancreatitis K85.90 Headache R51.9 Colon cancer C18.9 Hypertension I10
[2023-05-21 17:39] LABS: Chol HDL Ratio 2.5 (0-5)
[2023-05-21] MEDS ORDERED: ONDANSETRON INJ 2 MG/ML 2 ML VIAL IV PRN (18:45)
[2023-05-21] MEDS ORDERED: NITROGLYCERIN SL 0.4 MG/TAB TAB SL PRN (18:45)
[2023-05-21] MEDS ORDERED: ACETAMINOPHEN 325 MG TAB PO PRN (18:45)
[2023-05-21] MEDS ORDERED: HYDROmorphone INJ 1 MG/ML SYRINGE IV PRN (18:45)
[2023-05-21] MEDS ORDERED: HYDROmorphone INJ 0.5 MG/0.5 ML SYR IV PRN (18:45)
[2023-05-21] MEDS: LACTATED RINGER'S 1,000 ML IV SCH (19:38)
[2023-05-21] MEDS: ENOXAPARIN INJ 40 MG/0.4 ML SYR SQ SCH (21:32)
[2023-05-21] MEDS: CALCIUM 600MG + VIT D 400 IU TAB PO SCH (21:32)
[2023-05-22] MEDS: LACTATED RINGER'S 1,000 ML IV SCH ×2 (03:42→11:46)
[2023-05-22 08:34] LABS: Basophils # (auto) 0.03 K/uL (0.00-0.20); Basophils % (auto) 0.3 %; Eosinophils # (auto) 0.08 K/uL (0.00-0.50); Eosinophils % (auto) 0.9 %; Hematocrit (blood only) 38.5 % (42.0-52.0); Hemoglobin 12.8 g/dl (14.0-18.0); Immature Granulocytes # (auto) 0.03 K/uL (0.01-0.20); Immature Granulocytes % (auto) 0.3 %; Lymphocytes # (auto) 1.54 K/uL (1.20-3.40); Lymphocytes % (auto) 17.3 %; Mean Corpuscular Hgb Conc 33.2 g/dL (32.0-36.0); Mean Corpuscular Volume 93.2 fL (80.0-100.0); Mean Platelet Volume 8.7 fL (9.4-12.4); Monocytes # (auto) 0.69 K/uL (0.11-0.59); Monocytes % (auto) 7.7 %; Neutrophils # (auto) 6.54 K/uL (1.40-6.50); Neutrophils % (auto) 73.5 %; Platelet Count 217 K/uL (130-400); RDW Coefficient of Variation 12.3 % (11.5-14.5); RDW Standard Deviation 42.8 fL (36.4-46.3); Red Blood Count 4.13 M/uL (4.70-6.10); White Blood Count 8.91 K/ul (4.8-10.8)
[2023-05-22] MEDS: ASPIRIN 81 MG ECTAB PO SCH (08:34)
[2023-05-22] MEDS: lisinopril 5 MG TAB PO SCH (08:34)
[2023-05-22] MEDS: CALCIUM 600MG + VIT D 400 IU TAB PO SCH ×2 (08:34→21:16)
[2023-05-22 08:49] LABS: Albumin Globulin Ratio 1.2 (0.9-2); Albumin Level 3.8 gm/dl (3.4-5.0); BUN Creatinine Ratio 17.3 (10-20); Bilirubin,Total 2.3 mg/dl (0.2-1.0); Calcium 9.5 mg/dl (8.6-10.3); Creatinine Clr Calc Pharmacy 69.7 ml/min; Est GFR (African American) 96.9 ml/min; Est GFR (Non-African American) 83.6 ml/min; Globulin 3.1 gm/dl (2.5-4.0); Potassium 4.5 mmol/L (3.5-5.1); Total Protein 6.9 gm/dl (6.0-8.3)
--- NOTE | 2023-05-22 09:16 | Hospitalist Progress Note ---
Date of Service May 22, 2023 Assessment & Plan (1) Acute pancreatitis: Plan: -CTAP:mild inflammation of the pancreatic head; Diff Dx: acute pancreatitis and peptic ulcer dz -pancreatic protocol CT recommended in one month -Patient denies NSAID use, ETOH use, triglycerides 112 - Hx of colon cancer s/p R partial hemicolectomy in 10/2018. Hx of cholecystectomy in 12/2018 - Hx of gallbladder pancreatitis d/t distal bile duct obstruction, treated with ERCP in 02/2019 - Unclear etiology of acute pancreatitis; ?Obstructive process - Protonix 40mg daily - GI consulted, do not suspect pancreatitis and recommend continued PPI - Lipase mildly elevated on admission, WNL 05/22 - Continue fluid resuscitation; decrease to LR 75mL/hr - Has not needed zofran or pain medications (2) Abdominal pain: Plan: -improved but continues to be present -Total bili continuing to rise, direct bili elevated 0.4 --> favors biliary process - MRCP without choledocholithiasis, favoring acute pancreatitis or possible ulcer disease, consistent with CTAP - Clear liquid diet (3) Headache: Plan: Patient endorses "head pressure" bilaterally across the eyes since Friday 05/18, improving, denies seasonal allergies Head CT NAF Acetaminophen as needed for pain (4) Colon cancer: Plan: S/p R partial hemicolectomy at [place] in 10/2018 (5) Hypertension: Plan: BP peaked at 183/96 in the ED Caution beta-blockers/calcium channel blockers if HR <60bpm Continue lisinopril Plan Dispo: continue inpatient stay VTE PPx: SCDs, Lovenox 40 mg SQ q24h Admission and Anticipated Discharge Date Admission Date: May 21, 2023 Supervising Physician Co-Signing Physician Notes Attending Attestation: Chart reviewed, care plan d/w DMITRY Girard. I agree w/ the haskins components of her documentation. 87yo male with acute pancreatitis of the pancreatic head vs duodenitis/PUD. Lipase mildly elevated only at presentation. MRCP was obtained - no choledocholithiasis. Acute pancreatitis again seen on MRCP. etiology of the above?? does patient need EGD to exclude PUD of the duodenum? PPI added empirically. GI consultation appreciated. Serial exams. Labs in am. Enrique Stanton MD Subjective [id number] - Patient seen sitting in the chair. Reports that his nausea/abdominal pain has decreased since admission. Reports just coming occasionally and not in any specific location. Does report to me that the abdominal pain was not that severe when he came in, just bad enough that he knew something was wrong. Denies heartburn symptoms. Frontal head pressure still continues. Denies prior hx of seasonal allergies. No vision changes. Urinating without issue, has not had a bowel movement. Denies CP or SOB. Tele: 1st degree block, sinus 50-60s Review of Systems Review of Systems: All systems reviewed & are unremarkable except as noted in Subjective Physical Exam Constitutional: WD/WN, vitals as above Eyes: PERRL, conjunctivae normal, anicteric sclerae Neck: trachea midline, no thyromegaly Respiratory: normal respiratory effort, lungs clear to auscultation Cardiovascular: RRR, no murmur, no edema Gastrointestinal (Abdomen): normal bowel sounds, soft, nontender, no hepatosplenomegaly Pain is not reproducible on exam. Skin: no rashes, warm and dry Psychiatric: A+Ox3, euthymic affect Results & Data Results & Data Vital Signs (Past 12 Hours) Vital Signs Temp Pulse Pulse Resp BP BP Pulse Ox 05/22/23 08:01 36.8 C 66 18 143/67 H 94 05/22/23 07:35 57 L 05/22/23 03:36 37.2 C 81 18 143/68 H 96 05/22/23 00:42 37.0 C 60 18 165/72 H 96 05/21/23 23:40 05/21/23 22:03 59 L O2 Del Method 05/22/23 08:01 Room Air 05/22/23 07:35 05/22/23 03:36 Room Air 05/22/23 00:42 Nasal Cannula 05/21/23 23:40 Room Air 05/21/23 22:03 Laboratory Results Laboratory Results - last 24 hr 05/21/23 05/21/23 05/22/23 12:39 14:23 08:11 WBC 8.91 RBC 4.13 L Hgb 12.8 L Hct 38.5 L MCV 93.2 MCH 31.0 MCHC 33.2 RDW Std Deviation 42.8 RDW Coeff of Juan 12.3 Plt Count 217 MPV 8.7 L Immature Gran % (Auto) 0.3 Neut % (Auto) 73.5 Lymph % (Auto) 17.3 Oliver % (Auto) 7.7 Eos % (Auto) 0.9 Baso % (Auto) 0.3 Neut # (Auto) 6.54 H Lymph # (Auto) 1.54 Oliver # (Auto) 0.69 H Eos # (Auto) 0.08 Baso # (Auto) 0.03 Immature Gran # (Auto) 0.03 PT 10.9 INR 1.0 Sodium 138 Potassium 4.5 Chloride 104 Carbon Dioxide 27 Anion Gap 7 BUN 13 Creatinine 0.75 Est Cr Clr Drug Dosing 69.7 Est GFR ( Amer) 96.9 Est GFR (Non-Af Amer) 83.6 BUN/Creatinine Ratio 17.3 Glucose 82 Calcium 9.5 Total Bilirubin 2.3 H Direct Bilirubin AST 18 ALT 10 Alkaline Phosphatase 68 Total Protein 6.9 Albumin 3.8 Globulin 3.1 Albumin/Globulin Ratio 1.2 Triglycerides 112 Cholesterol 141 LDL Cholesterol, Calc 63 VLDL Cholesterol, Calc 22 HDL Cholesterol 56 Cholesterol/HDL Ratio 2.5 05/22/23 09:24 Direct Bilirubin 0.4 H Lipase 42 Diagnostic Findings Abdomen/Pelvis CT 05/21/23 12:45 CT OF THE ABDOMEN AND PELVIS WITH CONTRAST CLINICAL HISTORY: Upper abdominal pain to flank. COMPARISON STUDY: CT of the abdomen and pelvis November 21, 2021. TECHNIQUE: Following IV administration of 112 mL of Optiray, axial images of the abdomen and pelvis were obtained from the lung bases to the proximal femurs. Images were reviewed in the axial, sagittal, and coronal planes. IV contrast was administered without complication. Automated exposure control was utilized for the study. A dose lowering technique was utilized adhering to the principles of ALARA. FINDINGS: No pneumatosis, free air or portal venous gas is present. A few subcentimeter hypodense hepatic lesions are too small to characterize but are unchanged. These are benign. There is no biliary ductal dilatation status post cholecystectomy. There is mild inflammation adjacent to the pancreatic head and uncinate process as well as the first and second portions of the duodenum and the distal stomach. No extraluminal gas is present. There is no fluid collection. There is no pancreatic ductal dilatation. The pancreas enhances homogeneously. There is slight fullness of the uncinate process. A few subcentimeter renal lesions are too small to characterize. There is extensive sigmoid diverticulosis without evidence for acute diverticulitis. There is no evidence for a bowel obstruction. Stable postoperative findings are noted following right hemicolectomy. Postoperative findings within the lumbosacral spine are present. There is a left hip arthroplasty. IMPRESSION: 1. Mild inflammation adjacent to the pancreatic head and uncinate process and the distal stomach and proximal duodenum. Differential considerations include acute pancreatitis and peptic ulcer disease. Slight fullness of the uncinate process. No definite mass identified. Follow-up pancreatic protocol CT in one month to ensure resolution and exclude the unlikely possibility of an underlying mass is recommended. No extraluminal gas. No peripancreatic fluid collections. 2. Extensive colonic diverticulosis. No evidence for acute diverticulitis. 3. Stable postoperative findings following right hemicolectomy. 4. No biliary ductal dilatation status post cholecystectomy. ACT 112: Negative or not required by law. Electronically signed by: Seamus Garza M.D. 05/21/2023 2:58 PM Chest CTA 05/21/23 12:46 CT ANGIOGRAPHY OF THE CHEST, PULMONARY EMBOLUS PROTOCOL CLINICAL HISTORY: Upper abdominal pain. Evaluate for pulmonary embolus. COMPARISON STUDY: Chest CT September 09, 2022. TECHNIQUE: Following IV administration of 112 mL of Optiray, helical axial images of the chest were obtained utilizing the pulmonary embolus protocol. Maximal intensity projections and sagittal and coronal reformats were viewed on an independent 3D workstation. IV contrast was administered without complica tion. Automated exposure control was utilized for the study. A dose lowering technique was utilized adhering to the principles of ALARA. CT DOSE: 2726.45 mGy.cm FINDINGS: No pulmonary emboli are identified. There is no thoracic aortic dissection. Mild dilatation of the ascending aorta, measuring 3.9 cm is unchanged. There is mild cardiomegaly and moderate coronary artery calcification. Multiple calcified pleural plaques are again noted. There is no consolidation to suggest pneumonia. No pneumothorax or pleural effusion is present. Subpleural groundglass opacities reflect atelectasis. Right upper quadrant inflammation adjacent to the distal stomach and pancreatic head is better depicted on the CT of the abdomen and pelvis which will be reported separately. The gallbladder surgically absent. IMPRESSION: 1. No pulmonary emboli identified. 2. No acute intrathoracic findings. 3. Inflammation adjacent to the distal stomach and pancreatic head better depicted on the CT of the abdomen and pelvis. Please see that report for further description. ACT 112: Negative or not required by law. Electronically signed by: Seamus Garza M.D. 05/21/2023 2:38 PM Cholangiopancreatography MRI 05/22/23 10:16 MR MRCP HISTORY: Mid abdominal pain. pancreatitis vs ulcer, hx of jb, stone? TECHNIQUE: MRCP of the abdomen was performed without contrast according to standard departmental protocol. COMPARISON STUDY: Abdomen and pelvis CT 05/21/2023. FINDINGS: [employer] images demonstrate posterior fusion hardware within the lower lumbar spine. Colonic diverticulosis is noted. Scattered T2 hyperintense lesion within the kidneys which favor cysts. No hydronephrosis. The spleen, and adrenal glands unremarkable. Prior cholecystectomy. The lung bases are clear. A 6 mm cyst within the left hepatic dome. Otherwise, no hepatic masses. Mild inflammatory change surrounding the pancreatic head and second portion of duodenum. There is mild circumferential thickening of the proximal duodenum, unchanged. The pancreatic tail and body are unremarkable. Normal caliber common bile duct. No filling defects within the common bile duct to suggest choledocholithiasis. The main pancreatic duct is also normal in course and caliber. The common bile duct measures up to 4 mm. The pancreatic head is slightly edematous. IMPRESSION: 1. The common bile duct and main pancreatic duct are normal in course and caliber. No filling defects in the common bile duct to suggest choledocholithiasis. 2. Prior cholecystectomy. 3. Inflammatory change/edema surrounding the pancreatic head and proximal duodenum. The pancreatic head is slightly edematous. Therefore, this favors an acute pancreatitis. A duodenitis/peptic ulcer disease could also have a similar appearance. This is similar to the prior study. ACT 112: Negative or not required by law. Electronically signed by: Chaim Olmstead M.D. 05/22/2023 1:21 PM PG Care Time/CCT Total # of Minutes Spent Total Time Spent with Patient: Total time spent is greater than 50% in coordination of care (as documented) at patient's floor/unit and/or counseling patient: Coding Level of Care Code 68409 SUB INP/OBS CARE 3/50MIN Diagnoses Acute pancreatitis K85.90 Abdominal pain R10.9 Headache R51.9 Colon cancer C18.9 Hypertension I10
--- NOTE | 2023-05-22 10:03 | Gastrointestinal Consultation ---
Date of Consultation May 22, 2023 Assessment & Plan (1) Acute upper abdominal pain: Pleasant gentleman with upper abdominal dyspeptic complaints. He denies having what he would call pain and only says there is a burning in his upper abdomen. CT scan is not definitive as findings could be pancreatitis or duodenal inflammation. He has received pantoprazole and is better. Treatment of pancreatitis is fluids and NPO until better and that is where we are now. Lipase of 113 does not indicate anything and should be ignored. As he is improved symptomatically I would advance diet. If he tolerates regular diet he can go home on PPI and just commit to two months PPI for treatment course. He can follow up with his PCP or in GI clinic after discharge to make sure symptoms resolve. History of Present Illness Reason for Consultation: abdominal pain Attending Physician: Denny Valentine MD History of Present Illness 87 year old man admitted to the hospital with abdominal pain and ? pancreatitis vs duodenitis on CT. He tells me he went to a 's breakfast on tuesday and shortly after that developed burning across his upper abdomen. He says it was never a pain but just a burning. It was never severe but he "knew something was wrong" so he came to ER. CT shows inflammation around the head/uncinate process of pancreas and the duodenal wall. He has had pancreatitis before and he does not think this is anything like it. He is not vomiting nor has he vomited. He feels pretty well now. He has a history of colon cancer and I did his last colonoscopy earlier this year. Prior to Tuesday he was feeling great. Allergies Allergy/AdvReac Type Severity Reaction Status Date / Time adhesive Allergy Mild SKIN Verified 05/21/23 15:29 REDNESS mylan brand HTN AdvReac Intermediate Tachycardia Uncoded 05/21/23 15:29 Home Medications Medication Instructions Recorded Confirmed Type calcium carbonate 600 mg calcium 600 mg PO BID 12/16/18 05/21/23 History (1,500 mg) tablet (Calcium) clindamycin HCl 300 mg capsule 300 mg PO DAILY PRN PRE DENTAL 06/15/21 05/21/23 History acetaminophen 500 mg tablet 500 mg PO Q6H PRN Pain 11/21/21 05/21/23 History aspirin 81 mg tablet,delayed 81 mg PO DAILY 11/21/21 05/21/23 History release (Elly Low Dose Aspirin) lisinopril 5 mg tablet 5 mg PO DAILY #90 tabs 07/26/22 05/21/23 Rx [id number]-[id number]-[id number] acid 400 1 tab PO QAM 05/21/23 05/21/23 History mcg-vit K 20 mcg-lycop 300 mcg tablet Patient History Medical History Acute pancreatitis Acute URI of multiple sites Diverticulitis Urge incontinence History of colon cancer Osteoarthritis 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) Surgical History S/P tendon repair left hand many years ago as per pt History of basal cell carcinoma excision Hx of cataract extraction History of back surgery History of arthroscopy of left shoulder History of left hip replacement History of right knee joint replacement Hx of cholecystectomy History of colon resection Family History Brother Family hx of colon cancer Colorectal cancer Sister Breast cancer Father Myocardial infarction Other Hypertension Denies family history of Ovarian cancer Prostate cancer Diabetes Social History Smoking Status: Former smoker Tobacco Type: Cigarettes Second Hand Exposure: No; Do You Dip or Chew Tobacco: No; Hx Alcohol Use: Yes Alcohol type: beer Hx Substance Use: No Preferred Language: Pashto Communication Ability: Effective Visual Impairment: No Limitations Assurance Engineer Required: No Beliefs That Will Affect Care: None marital status: Current Living Situation: Spouse Current Living Situation Comment: [employer] style home current occupational status: retired How many Children do You have: 2 Feels Safe at Home: Yes Childhood Exposure to Second-Hand Smoke: Yes Diet: regular caffeine: No Dental Care, Regularly: Yes Physical Activity Frequency: Daily Seatbelt Use: always Sunscreen Use: Yes Assistive Devices: Denture - Upper and Glasses Review of Systems Review of Systems: All systems reviewed & are unremarkable except as noted in HPI & below Physical Exam Constitutional: WD/WN, vitals as above no acute distress Eyes: PERRL, conjunctivae normal, anicteric sclerae ENMT: external ear and nose normal, oropharynx normal Neck: trachea midline, no thyromegaly Respiratory: normal respiratory effort, lungs clear to auscultation Cardiovascular: RRR, no murmur, no edema Gastrointestinal (Abdomen): normal bowel sounds, soft, nontender, no hepatosplenomegaly Musculoskeletal: Extremities: no cyanosis and no clubbing Skin: no rashes, warm and dry Neurologic: PERRL, EOMI, accommodation nl, no face palsy, no dysarthria Psychiatric: Orientation: alert and oriented x 3 Results & Data Vital Signs (Past 12 Hours) Vital Signs Temp Pulse Pulse Resp BP BP Pulse Ox 05/22/23 08:01 36.8 C 66 18 143/67 H 94 05/22/23 07:35 57 L 05/22/23 03:36 37.2 C 81 18 143/68 H 96 05/22/23 00:42 37.0 C 60 18 165/72 H 96 05/21/23 23:40 05/21/23 22:03 59 L O2 Del Method 05/22/23 08:01 Room Air 05/22/23 07:35 05/22/23 03:36 Room Air 05/22/23 00:42 Nasal Cannula 05/21/23 23:40 Room Air 05/21/23 22:03 Laboratory Results 05/22/23 05/22/23 05/21/23 Range/Units 09:24 08:11 14:23 WBC 8.91 (4.8-10.8) K/ul RBC 4.13 L (4.70-6.10) M/uL Hgb 12.8 L (14.0-18.0) g/dl Hct 38.5 L (42.0-52.0) % MCV 93.2 (80.0-100.0) fL MCH 31.0 (25.0-34.0) pg MCHC 33.2 (32.0-36.0) g/dL RDW Std Deviation 42.8 (36.4-46.3) fL RDW Coeff of Juan 12.3 (11.5-14.5) % Plt Count 217 (130-400) K/uL MPV 8.7 L (9.4-12.4) fL Immature Gran % (Auto) 0.3 % Neut % (Auto) 73.5 % Lymph % (Auto) 17.3 % [place] % (Auto) 7.7 % Eos % (Auto) 0.9 % Baso % (Auto) 0.3 % Neut # (Auto) 6.54 H (1.40-6.50) K/uL Lymph # (Auto) 1.54 (1.20-3.40) K/uL [place] # (Auto) 0.69 H (0.11-0.59) K/uL Eos # (Auto) 0.08 (0.00-0.50) K/uL Baso # (Auto) 0.03 (0.00-0.20) K/uL Immature Gran # (Auto) 0.03 (0.01-0.20) K/uL PT 10.9 INR 1.0 Sodium 138 (136-145) mmol/L Potassium 4.5 (3.5-5.1) mmol/L Chloride 104 (98-107) mmol/L Carbon Dioxide 27 (21-32) mmol/L Anion Gap 7 (3-11) BUN 13 (6-23) mg/dl Creatinine 0.75 (0.6-1.4) mg/dl Est Cr Clr Drug Dosing 69.7 ml/min Est GFR ( Amer) 96.9 ml/min Est GFR (Non-Af Amer) 83.6 ml/min BUN/Creatinine Ratio 17.3 (10-20) Glucose 82 (70-99(Fasting)) mg/dl Calcium 9.5 (8.6-10.3) mg/dl Total Bilirubin 2.3 H (0.2-1.0) mg/dl Direct Bilirubin Pending AST 18 (13-39) U/L ALT 10 (7-52) U/L Alkaline Phosphatase 68 (34-104) U/L Troponin I High Sens (0-20) pg/ml Total Protein 6.9 (6.0-8.3) gm/dl Albumin 3.8 (3.4-5.0) gm/dl Globulin 3.1 (2.5-4.0) gm/dl Albumin/Globulin Ratio 1.2 (0.9-2) Triglycerides (0-150) mg/dl Cholesterol (0-200) mg/dl LDL Cholesterol, Calc mg/dl VLDL Cholesterol, Calc (0-30) mg/dl HDL Cholesterol mg/dl Cholesterol/HDL Ratio (0-5) Lipase Pending (11-82) U/L Urine Color Urine Appearance (Clear) Urine pH (4.5-7.5) Ur Specific [place] (1.000-1.030) Urine Protein (Negative) Urine Glucose (UA) (Negative) Urine Ketones (Negative) Urine Blood (Negative) Urine Nitrite (Negative) Urine Bilirubin (Negative) Urine Urobilinogen (Negative) Ur Leukocyte Esterase (Negative) Adenovirus (PCR) (NotDetected) B. pertussis DNA (PCR) (NotDetected) B.parapertussis DNA PCR (NotDetected) C. pneumoniae DNA (PCR) (NotDetected) Coronavirus OC43 (PCR) (NotDetected) Coronavirus HKU1 (PCR) (NotDetected) Coronavirus 229E (PCR) (NotDetected) SARS-CoV-2 (PCR) (NotDetected) Coronavirus NL63 (PCR) (NotDetected) Human Metapneumovir PCR (NotDetected) Influenza Type A (PCR) (NotDetected) Influenza Type B (PCR) (NotDetected) M. pneumoniae (PCR) (NotDetected) Parainfluenza 1 (PCR) (NotDetected) Parainfluenza 2 (PCR) (NotDetected) Parainfluenza 3 (PCR) (NotDetected) Parainfluenza 4 (PCR) (NotDetected) RSV (PCR) (NotDetected) Entero/Rhino (PCR) (NotDetected) 05/21/23 05/21/23 05/21/23 Range/Units 13:36 13:01 12:39 WBC 11.11 H (4.8-10.8) K/ul RBC 4.44 L (4.70-6.10) M/uL Hgb 13.9 L (14.0-18.0) g/dl Hct 41.9 L (42.0-52.0) % MCV 94.4 (80.0-100.0) fL MCH 31.3 (25.0-34.0) pg MCHC 33.2 (32.0-36.0) g/dL RDW Std Deviation 43.2 (36.4-46.3) fL RDW Coeff of Juan 12.4 (11.5-14.5) % Plt Count 254 (130-400) K/uL MPV 8.7 L (9.4-12.4) fL Immature Gran % (Auto) 0.5 % Neut % (Auto) 72.5 % Lymph % (Auto) 18.4 % [place] % (Auto) 7.7 % Eos % (Auto) 0.6 % Baso % (Auto) 0.3 % Neut # (Auto) 8.07 H (1.40-6.50) K/uL Lymph # (Auto) 2.04 (1.20-3.40) K/uL [place] # (Auto) 0.85 H (0.11-0.59) K/uL Eos # (Auto) 0.07 (0.00-0.50) K/uL Baso # (Auto) 0.03 (0.00-0.20) K/uL Immature Gran # (Auto) 0.05 (0.01-0.20) K/uL PT Cancelled INR Cancelled Sodium 137 (136-145) mmol/L Potassium 3.9 (3.5-5.1) mmol/L Chloride 102 (98-107) mmol/L Carbon Dioxide 30 (21-32) mmol/L Anion Gap 5 (3-11) BUN 17 (6-23) mg/dl Creatinine 0.88 (0.6-1.4) mg/dl Est Cr Clr Drug Dosing 59.4 ml/min Est GFR ( Amer) 90.8 ml/min Est GFR (Non-Af Amer) 78.3 ml/min BUN/Creatinine Ratio 19.3 (10-20) Glucose 91 (70-99(Fasting)) mg/dl Calcium 10.0 (8.6-10.3) mg/dl Total Bilirubin 1.6 H (0.2-1.0) mg/dl Direct Bilirubin AST 20 (13-39) U/L ALT 12 (7-52) U/L Alkaline Phosphatase 80 (34-104) U/L Troponin I High Sens 5.0 (0-20) pg/ml Total Protein 7.7 (6.0-8.3) gm/dl Albumin 4.3 (3.4-5.0) gm/dl Globulin 3.4 (2.5-4.0) gm/dl Albumin/Globulin Ratio 1.3 (0.9-2) Triglycerides 112 (0-150) mg/dl Cholesterol 141 (0-200) mg/dl LDL Cholesterol, Calc 63 mg/dl VLDL Cholesterol, Calc 22 (0-30) mg/dl HDL Cholesterol 56 mg/dl Cholesterol/HDL Ratio 2.5 (0-5) Lipase 113 H (11-82) U/L Urine Color Yellow Urine Appearance Clear (Clear) Urine pH 6.0 (4.5-7.5) Ur Specific [place] 1.011 (1.000-1.030) Urine Protein Negative (Negative) Urine Glucose (UA) Negative (Negative) Urine Ketones Negative (Negative) Urine Blood Negative (Negative) Urine Nitrite Negative (Negative) Urine Bilirubin Negative (Negative) Urine Urobilinogen Negative (Negative) Ur Leukocyte Esterase Negative (Negative) Adenovirus (PCR) Not Detected (NotDetected) B. pertussis DNA (PCR) Not Detected (NotDetected) B.parapertussis DNA PCR Not Detected (NotDetected) C. pneumoniae DNA (PCR) Not Detected (NotDetected) Coronavirus OC43 (PCR) Not Detected (NotDetected) Coronavirus HKU1 (PCR) Not Detected (NotDetected) Coronavirus 229E (PCR) Not Detected (NotDetected) SARS-CoV-2 (PCR) Not Detected (NotDetected) Coronavirus NL63 (PCR) Not Detected (NotDetected) Human Metapneumovir PCR Not Detected (NotDetected) Influenza Type A (PCR) Not Detected (NotDetected) Influenza Type B (PCR) Not Detected (NotDetected) M. pneumoniae (PCR) Not Detected (NotDetected) Parainfluenza 1 (PCR) Not Detected (NotDetected) Parainfluenza 2 (PCR) Not Detected (NotDetected) Parainfluenza 3 (PCR) Not Detected (NotDetected) Parainfluenza 4 (PCR) Not Detected (NotDetected) RSV (PCR) Not Detected (NotDetected) Entero/Rhino (PCR) Not Detected (NotDetected) Diagnostic Findings Head CT 05/21/23 12:44 CT OF THE HEAD WITHOUT CONTRAST CLINICAL HISTORY: Headache. COMPARISON STUDY: Head CT and MRI of the brain May 26, 2017. TECHNIQUE: Helical axial images of the head were obtained without IV contrast. Automated exposure control was utilized for the study. A dose lowering technique was utilized adhering to the principles of ALARA. FINDINGS: No acute intracranial hemorrhage, midline shift or mass effect is present. The ventricular system is unremarkable. The basal cisterns are patent. No extra-axial collections are present. There are no findings to suggest acute dural sinus thrombosis or acute territorial infarct. No significant calvarial abnormalities are present. Visualized portions of the sinuses and mastoid air cells are clear. IMPRESSION: No acute intracranial findings. ACT 112: Negative or not required by law. Electronically signed by: Seamus Garza M.D. 05/21/2023 2:13 PM Abdomen/Pelvis CT 05/21/23 12:45 CT OF THE ABDOMEN AND PELVIS WITH CONTRAST CLINICAL HISTORY: Upper abdominal pain to flank. COMPARISON STUDY: CT of the abdomen and pelvis November 21, 2021. TECHNIQUE: Following IV administration of 112 mL of Optiray, axial images of the abdomen and pelvis were obtained from the lung bases to the proximal femurs. Images were reviewed in the axial, sagittal, and coronal planes. IV contrast was administered without complication. Automated exposure control was utilized for the study. A dose lowering technique was utilized adhering to the principles of ALARA. FINDINGS: No pneumatosis, free air or portal venous gas is present. A few subcentimeter hypodense hepatic lesions are too small to characterize but are unchanged. These are benign. There is no biliary ductal dilatation status post cholecystectomy. There is mild inflammation adjacent to the pancreatic head and uncinate process as well as the first and second portions of the duodenum and the distal stomach. No extraluminal gas is present. There is no fluid collection. There is no pancreatic ductal dilatation. The pancreas enhances homogeneously. There is slight fullness of the uncinate process. A few subcentimeter renal lesions are too small to characterize. There is extensive sigmoid diverticulosis without evidence for acute diverticulitis. There is no evidence for a bowel obstruction. Stable postoperative findings are noted following right hemicolectomy. Postoperative findings within the lumbosacral spine are present. There is a left hip arthroplasty. IMPRESSION: 1. Mild inflammation adjacent to the pancreatic head and uncinate process and the distal stomach and proximal duodenum. Differential considerations include acute pancreatitis and peptic ulcer disease. Slight fullness of the uncinate process. No definite mass identified. Follow-up pancreatic protocol CT in one month to ensure resolution and exclude the unlikely possibility of an underlying mass is recommended. No extraluminal gas. No peripancreatic fluid collections. 2. Extensive colonic diverticulosis. No evidence for acute diverticulitis. 3. Stable postoperative findings following right hemicolectomy. 4. No biliary ductal dilatation status post cholecystectomy. ACT 112: Negative or not required by law. Electronically signed by: Seamus Garza M.D. 05/21/2023 2:58 PM Chest CTA 05/21/23 12:46 CT ANGIOGRAPHY OF THE CHEST, PULMONARY EMBOLUS PROTOCOL CLINICAL HISTORY: Upper abdominal pain. Evaluate for pulmonary embolus. COMPARISON STUDY: Chest CT September 09, 2022. TECHNIQUE: Following IV administration of 112 mL of Optiray, helical axial images of the chest were obtained utilizing the pulmonary embolus protocol. Maximal intensity projections and sagittal and coronal reformats were viewed on an independent 3D workstation. IV contrast was administered without complication. Automated exposure control was utilized for the study. A dose lowering technique was utilized adhering to the principles of ALARA. CT DOSE: 2726.45 mGy.cm FINDINGS: No pulmonary emboli are identified. There is no thoracic aortic dissection. Mild dilatation of the ascending aorta, measuring 3.9 cm is unchanged. There is mild cardiomegaly and moderate coronary artery calcification. Multiple calcified pleural plaques are again noted. There is no consolidation to suggest pneumonia. No pneumothorax or pleural effusion is present. Subpleural groundglass opacities reflect atelectasis. Right upper quadrant inflammation adjacent to the distal stomach and pancreatic head is better depicted on the CT of the abdomen and pelvis which will be reported separately. The gallbladder surgically absent. IMPRESSION: 1. No pulmonary emboli identified. 2. No acute intrathoracic findings. 3. Inflammation adjacent to the distal stomach and pancreatic head better depicted on the CT of the abdomen and pelvis. Please see that report for further description. ACT 112: Negative or not required by law. Electronically signed by: Seamus Garza M.D. 05/21/2023 2:38 PM
[2023-05-22 10:05] LABS: Bilirubin Direct 0.4 mg/dl (0-0.2)
[2023-05-22] MEDS: PANTOprazole 40 MG TAB PO SCH (10:51)
--- NOTE | 2023-05-22 13:24 | Magnetic Resonance Report ---
MR MRCP HISTORY: Mid abdominal pain. pancreatitis vs ulcer, hx of jb, stone? TECHNIQUE: MRCP of the abdomen was performed without contrast according to standard departmental prot ocol. COMPARISON STUDY: Abdomen and pelvis CT 05/21/2023. FINDINGS: Structural Test Engineer images demonstrate posterior fusion hardware within the lower lumbar spine. Colonic d iverticulosis is noted. Scattered T2 hyperintense lesion within the kidneys which favor cysts. No hyd ronephrosis. The spleen, and adrenal glands unremarkable. Prior cholecystectomy. The lung bases are c lear. A 6 mm cyst within the left hepatic dome. Otherwise, no hepatic masses. Mild inflammatory major e surrounding the pancreatic head and second portion of duodenum. There is mild circumferential thick ening of the proximal duodenum, unchanged. The pancreatic tail and body are unremarkable. Normal mike [place] common bile duct. No filling defects within the common bile duct to suggest choledocholithiasis. The main pancreatic duct is also normal in course and caliber. The common bile duct measures up to 4 mm. The pancreatic head is slightly edematous. IMPRESSION: 1. The common bile duct and main pancreatic duct are normal in course and caliber. No filling defects in the common bile duct to suggest choledocholithiasis. 2. Prior cholecystectomy. 3. Inflammatory change/edema surrounding the pancreatic head and proximal duodenum. The pancreatic he ad is slightly edematous. Therefore, this favors an acute pancreatitis. A duodenitis/peptic ulcer dis ease could also have a similar appearance. This is similar to the prior study. ACT 112: Negative or not required by law. Electronically signed by: Chaim Olmstead M.D. 05/22/2023 1:21 PM
--- NOTE | 2023-05-22 20:02 | Electrocardiogram Report ---
Test Reason : Blood Pressure : / mmHG Vent. Rate : 065 BPM Atrial Rate : 065 BPM P-R Int : 220 ms QRS Dur : 084 ms QT Int : 402 ms P-R-T Axes : 083 -20 049 degrees QTc Int : 418 ms Sinus rhythm with 1st degree A-V block Septal infarct (cited on or before 16-DEC-2018) Abnormal ECG When compared with ECG of 16-DEC-2018 20:12, No significant change Confirmed by Kristopher Keys ([id number]) on 05/22/2023 8:02:00 PM Referred By: REFERRED SELF Confirmed By:Kristopher Keys
[2023-05-22 20:08] VITALS: RESP 18
[2023-05-22] MEDS: ENOXAPARIN INJ 40 MG/0.4 ML SYR SQ SCH (21:16)
[2023-05-23 07:13] LABS: Albumin Globulin Ratio 1.2 (0.9-2); Albumin Level 3.6 gm/dl (3.4-5.0); BUN Creatinine Ratio 15.6 (10-20); Bilirubin,Total 1.7 mg/dl (0.2-1.0); Calcium 8.9 mg/dl (8.6-10.3); Creatinine Clr Calc Pharmacy 67.9 ml/min; Est GFR (African American) 95.9 ml/min; Est GFR (Non-African American) 82.7 ml/min; Potassium 4.2 mmol/L (3.5-5.1); Total Protein 6.6 gm/dl (6.0-8.3)
[2023-05-23 07:19] LABS: Basophils # (auto) 0.02 K/uL (0.00-0.20); Basophils % (auto) 0.3 %; Eosinophils # (auto) 0.12 K/uL (0.00-0.50); Eosinophils % (auto) 1.8 %; Hematocrit (blood only) 34.4 % (42.0-52.0); Hemoglobin 11.7 g/dl (14.0-18.0); Immature Granulocytes # (auto) 0.02 K/uL (0.01-0.20); Immature Granulocytes % (auto) 0.3 %; Lymphocytes # (auto) 1.43 K/uL (1.20-3.40); Lymphocytes % (auto) 20.9 %; Mean Corpuscular Hemoglobin 31.1 pg (25.0-34.0); Mean Corpuscular Volume 91.5 fL (80.0-100.0); Monocytes # (auto) 0.69 K/uL (0.11-0.59); Monocytes % (auto) 10.1 %; Neutrophils # (auto) 4.57 K/uL (1.40-6.50); Neutrophils % (auto) 66.6 %; Platelet Count 230 K/uL (130-400); RDW Coefficient of Variation 12.1 % (11.5-14.5); RDW Standard Deviation 40.7 fL (36.4-46.3); Red Blood Count 3.76 M/uL (4.70-6.10); White Blood Count 6.85 K/ul (4.8-10.8)
[2023-05-23] MEDS: ASPIRIN 81 MG ECTAB PO SCH (09:37)
[2023-05-23] MEDS: CALCIUM 600MG + VIT D 400 IU TAB PO SCH (09:37)
[2023-05-23] MEDS: PANTOprazole 40 MG TAB PO SCH (09:38)
[2023-05-23] MEDS: lisinopril 5 MG TAB PO SCH (09:38)
[2023-05-23 15:36] VITALS: TEMP 97.5; O2SAT 94
--- NOTE | 2023-05-23 16:06 | Gastroenterology Progress Note ---
Date of Service May 23, 2023 Assessment & Plan (1) Acute pancreatitis: Plan: Ready to go home. From my understanding he has appt on Tuesday with me. Admission and Anticipated Discharge Date Admission Date: May 21, 2023 Subjective Feels well, pain free. Ready for discharge Results & Data Vital Signs (Past 12 Hours) Vital Signs Temp Pulse Pulse Resp BP BP Pulse Ox 05/23/23 15:49 57 L 05/23/23 15:35 36.4 C L 66 18 144/70 H 94 05/23/23 11:18 36.3 C L 60 18 171/78 H 96 05/23/23 07:36 55 L 05/23/23 07:35 36.5 C 18 160/78 H 96 O2 Del Method 05/23/23 15:49 05/23/23 15:35 Room Air 05/23/23 11:18 Room Air 05/23/23 07:36 05/23/23 07:35 Room Air
--- NOTE | 2023-05-23 18:09 | Discharge Summary ---
Date of Service May 23, 2023 Admission HPI Per Admitting Provider Juan is an 87-year-old male with PMH of colon cancer s/p right hemicolectomy in 2019, s/p cholecystectomy, TIA, HTN, BPH, gallstone pancreatitis, choledocholithiasis, and OA. He presented to the ED for abdominal pain that started on Friday 05/18. He describes the epigastric pain as a "burning sensation". He endorses radiation to back pain yesterday, but not today. No sick contacts. Patient denies NSAID use. He endorses taking tylenol 2 tabs most mornings. He also endorses new onset "head pressure"; he reports it is constant and bilateral / transverse across the eyes. He would not define as a headache. No recent changes in diet. The patient denies alcohol use. Hypertensive on arrival peaking at 183/96, with HR in the 50-60bpm range. ED course: Toradol 10 mg IV Famotidine 20 mg IV Pantoprazole 80 mg IV IVF ROS: Patient endorses productive cough (clear sputum production) x 1mo, cold intolerance, chills, epigastric pain. Patient denies fever, sweating, dizziness, , CP, pleuritic CP, SOB, N/V/D, burning with urination, blood in urine/stool, urinary retention, saddle anesthesia, or numbness/tingling/pain going to down to legs. Social hx: Former tobacco cigarette smoker / tobacco chew; quit 30-40y ago Denies alcohol use Summer 2019: Dx Colon Cancer and right partial hemicolectomy Cholecystectomy Pancreatitis treated with ERCP Discharge Data Allergies Allergy/AdvReac Type Severity Reaction Status Date / Time adhesive Allergy Mild SKIN Verified 05/21/23 15:29 REDNESS mylan brand HTN AdvReac Intermediate Tachycardia Uncoded 05/21/23 15:29 Consultations 05/21/23 15:31 ED Decision to Admit Stat 05/22/23 09:09 Consult Gastroenterology Routine Ordered Studies 05/21/23 12:44 CT head/brain wo con Stat 05/21/23 12:45 CT abd pelvis IV con only Stat 05/21/23 12:46 CT angio chest PE protocol Stat 05/22/23 10:16 MRI MRCP [MR MRCP] Urgent Hospital Course (1) Acute pancreatitis: -CTAP:mild inflammation of the pancreatic head; Diff Dx: acute pancreatitis and peptic ulcer dz -pancreatic protocol CT recommended in one month -Patient denies NSAID use, ETOH use, triglycerides 112 - Hx of colon cancer s/p R partial hemicolectomy in 10/2018. Hx of cholecystectomy in 12/2018 - Hx of gallbladder pancreatitis d/t distal bile duct obstruction, treated with ERCP in 02/2019 - Unclear etiology of acute pancreatitis; ?Obstructive process - Protonix 40mg daily - GI consulted, do not suspect pancreatitis and recommend continued PPI - Lipase mildly elevated on admission, WNL 05/22 - Continue fluid resuscitation; decrease to LR 75mL/hr - Has not needed zofran or pain medications (2) Abdominal pain: -improved but continues to be present -Total bili continuing to rise, direct bili elevated 0.4 --> favors biliary process - MRCP without choledocholithiasis, favoring acute pancreatitis or possible ulcer disease, consistent with CTAP - Clear liquid diet (3) Headache: Patient endorses "head pressure" bilaterally across the eyes since Friday 05/18, improving, denies seasonal allergies Head CT NAF Acetaminophen as needed for pain (4) Colon cancer: S/p R partial hemicolectomy at [place] [facility] in 10/2018 (5) Hypertension: BP peaked at 183/96 in the ED Caution beta-blockers/calcium channel blockers if HR <60bpm Continue lisinopril Plan Dispo: continue inpatient stay VTE PPx: SCDs, Lovenox 40 mg SQ q24h Discharge Plan Discharge Items Patient Disposition: Home - Self-Care Reason For Visit: ABDOMINAL PAIN Discharge Diagnosis: Abdominal pain - either due to acute pancreatitis OR inflamed duodenum (first portion of the small intestine) - resolved Activity: As commented below Activity Comment: gradually increase activities over the next few days Non-emergency contact: Primary Care Provider and Windows Application Developer Call non-emergency contact if: you have any medication questions, your symptoms worsen, your pain is not controlled, your pain is worsening and you have a fever Follow-up/Referrals: Braden Caceres DO [Primary Care Provider] - 05/30/23 12:00 pm Dylan Rangel Jr, MD [Physician] - 05/26/23 7:40 am Diet: Low Fat Addtl Attending Provider Instructions: Mr Fung, You were hospitalized due to abdominal pain. Your lipase level - which is an enzyme your pancreas makes - was mildly elevated at time of admission. Your CT scan of the abdomen showed 2 main findings - first, the head of the pancreas appeared inflamed suggestive of acute pancreatitis; second, the duodenum also appeared inflamed. The duodenum is the first portion of the small intestine and is next to your pancreas. You were seen by Dr Rangel from [facility]. He felt that your symptoms were likely due to inflammation of the duodenum. Pancreatitis was uncertain. You were started on acid reducers (pantoprazole) and ultimately resumed on a diet. This was advanced and you are tolerating a low fat diet at time of discharge. Recommendations - 1. HOLD your aspirin. 2. DO NOT take oran-udw-exwdbor anti-inflammatory pills which include motrin, ibuprofen, naprosyn, aleve, etc. Is is OK to take tylenol as tylenol does not cause stomach irritation or irritation to the pancreas. 3. START pantoprazole acid string studies director -- 40mg once daily each morning, ideally on empty stomach. 4. LOW FAT diet x 10 days. See handout. This is a precautionary measure in the event the pancreas was indeed sick/inflamed. 5. NO ALCOHOL at this time. Follow-up - see separate section Return to [facility] if - * you have fevers over 100 degrees * you have recurrent abdominal pains * you have nausea and / or vomiting * you see black/dark/tarry stools * you have bright red blood in your stool * any other concerns It was our pleasure to care for you! Pending Studies at Discharge: No Stand-Alone Forms: My [facility], Smoking Cessation Medications and DC Order Prescriptions: New pantoprazole 40 mg Tablet,Delayed Release (Dr/Ec) 40 mg PO QAM Qty: 30 5RF Continued lisinopril 5 mg tablet 5 mg PO DAILY Qty: 90 3RF clindamycin HCl 300 mg capsule 300 mg PO DAILY PRN (Reason: PRE DENTAL) calcium carbonate [Calcium 600] 600 mg calcium (1,500 mg) Tablet 600 mg PO BID acetaminophen 500 mg Tablet 500 mg PO Q6H PRN (Reason: Pain) Men's Multivitamin 400-20-300 mcg Tablet 1 tab PO QAM Held aspirin [Elly Low Dose Aspirin] 81 mg Tablet,Delayed Release (Dr/Ec) 81 mg PO DAILY Hold Instructions: HOLD unless Dr Rangel or your family doctor tell you it is ok to resume Discharge Orders: Discharge Order (Routine); Ordered 05/23/23 Ordered By: Enrique Thomas/Other Patient Handouts: Understanding Pancreatitis, ED Diet, Low Fat Admission Data Admit Date/Time: 05/21/23 17:02 Attending Provider: Enrique Stanton Admit Provider: Denny Valentine Primary Care Provider: Braden Caceres Other Providers: Denny Valentine; Dylan Rangel Jr Coding Diagnoses Acute pancreatitis K85.90 Abdominal pain R10.9 Headache R51.9 Colon cancer C18.9 Hypertension I10
[2023-05-23 18:21] VITALS: BP 160/78; PULSE 66
== END 2023-05-23 18:46 | disposition home or self-care (01) | DRG 440 ==
LOC: ED 12:07 → 2N 17:02 → INTOOBSV 17:02 → SUATTDRO 17:02 → 2N 18:28
DX: R51.9 Headache, unspecified; Z96.642 Presence of left artificial hip joint; Z86.73 Personal history of transient ischemic attack (TIA), and cerebral infarction without residual deficits; N40.0 Benign prostatic hyperplasia without lower urinary tract symptoms; I44.0 Atrioventricular block, first degree; M19.90 Unspecified osteoarthritis, unspecified site; Z87.891 Personal history of nicotine dependence; K85.90 Acute pancreatitis without necrosis or infection, unspecified; Z91.048 Other nonmedicinal substance allergy status; I10 Essential (primary) hypertension; K27.9 Peptic ulcer, site unspecified, unspecified as acute or chronic, without hemorrhage or perforation; Z96.651 Presence of right artificial knee joint; Z79.82 Long term (current) use of aspirin; Z85.038 Personal history of other malignant neoplasm of large intestine